=== PATIENT | female | born 1950 | race Caucasian/White ===

== ENCOUNTER 2019-09-07 07:54 | Emergency (ER) | payer MEDICARE, SELFPAY ==
--- NOTE | ~2019-09-07 | XR_ITS ---
XR chest 2V 09/07/2019 08:50 Indication: Dyspnea Procedure: 2 view chest Comparison: No prior studies for comparison. Findings: Status post median sternotomy for CABG. Cardiomegaly. There are coarse bilateral interstiti al infiltrates throughout both lungs. Possible small effusions. No pneumothorax. Impression: 1: Coarse diffuse bilateral interstitial infiltrates which may represent edema, chronic interstitial lung disease or atypical pneumonia. Reviewed, dictated and finalized at location A. Impression: 1: Coarse diffuse bilateral interstitial infiltrates which may represent edema, chronic interstitial lung disease or atypical pneumonia.
[2019-09-07 07:54] VITALS: BP 150/83; PULSE 92; RESP 18; TEMP 36.2; O2SAT 100
--- NOTE | 2019-09-07 08:04 | ED.SOB ---
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) Context: occurred during exertion Timing: intermittent and improved Severity: moderate Exacerbating factors: exertion Relieving factors: bronchodilators Known history of: congestive heart failure Treatment prior to arrival: bronchodilator Related Data Home oxygen amount: none Home Medications Medication Instructions Recorded Confirmed Eliquis 5 mg PO BID 09/07/19 09/07/19 albuterol sulfate 2 puff INHALATION PRN PRN 09/07/19 09/07/19 atorvastatin 80 mg PO DAILY 09/07/19 09/07/19 clonidine HCl 0.2 mg PO DAILY 09/07/19 09/07/19 duloxetine 30 mg PO DAILY 09/07/19 09/07/19 furosemide 40 mg PO DAILY 09/07/19 09/07/19 lisinopril 40 mg PO DAILY 09/07/19 09/07/19 naproxen 500 mg PO TID 09/07/19 09/07/19 omeprazole 80 mg PO DAILY 09/07/19 09/07/19 potassium chloride 10 meq PO DAILY 09/07/19 09/07/19 pramipexole 1 mg PO TID 09/07/19 09/07/19 Allergies Allergy/AdvReac Type Severity Reaction Status Date / Time prochlorperazine AdvReac Unknown Verified 09/07/19 09:27 [From Compazine] Review of Systems Constitutional: Constitutional: Reports no additional constitutional complaints, Denies chills and Denies fever(s) Eyes: Eyes: Reports no additional eye complaints ENT: Reports system reviewed and no additional complaints, except as documented Cardiovascular: Cardiovascular: Reports no additional cardiovascular complaints and Reports pedal edema Gastrointestinal: Gastrointestinal: Reports no additional gastrointestinal complaints Genitourinary: Genitourinary: Reports no additional female genitourinary complaints Musculoskeletal: Musculoskeletal: Reports no additional musculoskeletal complaints Neurologic: Reports system reviewed and no additional complaints, except as documented Psychiatric: Psychiatric: Reports no additional psychiatric complaints PMFSH Past Medical History Medical History (Updated 09/07/19 @ 11:29 by Faustino Brito MD) Asthma Atrial flutter COPD (chronic obstructive pulmonary disease) CVA (cerebral vascular accident) GERD (gastroesophageal reflux disease) Hypercholesteremia Hypertension Surgical History Surgical History (Updated 09/07/19 @ 11:29 by Faustino Brito MD) H/O section H/O foot surgery Bilateral H/O: hysterectomy History of appendectomy History of cholecystectomy History of knee replacement, total Bilateral Hx of CABG Social History Social History (Updated 09/07/19 @ 11:30 by Faustino Brito MD) Smoking status: Never smoker Alcohol intake: former Substance use: never Exam Const: General: healthy appearing, no acute distress and alert Nutritional Appearance: obese morbidly obese Orientation/consciousness: patient oriented x3 HENMT: Head: normal to inspection Face and sinus: normal facial exam Eyes: Conjunctivae: conjunctivae normal Pupils: Equal, round and reactive pupils present EOM: EOMs intact bilaterally Neck: Neck: normal visual inspection Resp: Effort & Inspection: normal respiratory effort Auscultation: rhonchi lower bilaterally Cardio: Rate: regular rate Rhythm: regular rhythm Heart sounds: Murmur heart sound present continuous holo, II/ and at the base GI: GI Palp: Yes Soft to palpation and No Tenderness to palpation present (GI) Auscultation: normal bowel sounds Back/Spine/Pelvis: Cervical Spine: cervical ROM normal Thoracic/Lumbar Spine: thoraco-lumbar ROM normal Skin: General skin exam: normal color Rashes: no rashes Neuro: General: patient oriented x3, moves all extremities and no focal motor deficits Speech: normal speech Extrem:
[2019-09-07] MEDS: FUROSEMIDE INJ 40 MG/4 ML VIAL 60 MG IV PUSH (08:25)
[2019-09-07 08:27] LABS: Basophils Absolute Auto 0.01 K/mm3 (0.00-0.10); Basophils Percent Auto 0.2 % (0.0-1.0); Eosinophils Absolute Auto 0.12 K/mm3 (0.02-0.50); Eosinophils Percent Auto 2.6 % (1.0-6.0); Hematocrit 34.8 % (35.0-42.0); Hemoglobin 10.6 g/dL (11.7-13.8); Immature Granulocyte Absolute 0.04 K/mm3 (0.00-0.00); Immature Granulocyte Percent A 0.9 % (0.0-0.0); Lymphocytes Absolute Auto 1.53 K/mm3 (1.10-4.50); Lymphocytes Percent Auto 33.6 % (18.0-42.0); Mean Corpuscular HGB Conc 30.5 g/dL (32.0-36.0); Mean Corpuscular Hemoglobin 30.2 pg (27.0-31.0); Mean Corpuscular Volume 99.1 fL (78.0-102.0); Mean Platelet Volume 10.9 fl (9.2-11.8); Monocytes Absolute Auto 0.42 K/mm3 (0.10-0.90); Monocytes Percent Auto 9.2 % (2.0-11.0); Neutrophils Absolute Auto 2.4 K/mm3 (1.7-7.2); Neutrophils Percent Auto 53.5 % (50.0-70.0); Platelet Count Result 186 K/mm3 (150-420); Red Blood Count 3.51 M/mm3 (4.20-5.40); Red Cell Distribution Width 13.9 % (11.6-14.4); White Blood Count 4.6 K/mm3 (4.8-10.8)
[2019-09-07 08:32] VITALS: PULSE 67
[2019-09-07 08:43] LABS: Alanine Aminotransferase 20 U/L (14-59); Albumin Level 3.7 g/dL (3.4-5.0); Alkaline Phosphatase 94 U/L (46-116); Anion Gap 8.6 mmol/L (7-16); Aspartate Amino Transferase 22 U/L (15-37); Bilirubin,Total 0.9 mg/dL (0.00-1.00); Blood Urea Nitrogen 19 mg/dL (7-18); Calcium 9.2 mg/dL (8.5-10.1); Carbon Dioxide 32 mmol/L (21-32); Chloride 110 mmol/L (98-108); Estimated Glomerular Filt Rate > 60; Glucose 100 mg/dL (70-99); Osmolality Calculated 304 mOsm/kg (285-295); Potassium 4.6 mmol/L (3.5-5.1); Sodium 146 mmol/L (136-145); Total Protein 7.1 g/dL (6.4-8.2)
[2019-09-07 08:44] LABS: BNP 344 pg/mL (0-100); Magnesium 2.1 mg/dL (1.8-2.4)
--- NOTE | 2019-09-07 08:46 | PC.NURSE ---
pt return to room from xray.
[2019-09-07 10:31] VITALS: BP 158/84; PULSE 67; RESP 20; O2SAT 97
== END 2019-09-07 10:40 | disposition home or self-care (01) ==
PROVIDERS: Emergency Provider Emergency Medicine
DX: I50.23 Acute on chronic systolic (congestive) heart failure (principal); Z86.73 Personal history of transient ischemic attack (TIA), and cerebral infarction without residual deficits; K21.9 Gastro-esophageal reflux disease without esophagitis; E78.00 Pure hypercholesterolemia, unspecified; I10 Essential (primary) hypertension
CPT/HCPCS: 36415; 71046; 80053; 83735; 83880; 85025; 96374; 99283; 99284; J1940

== ENCOUNTER 2019-09-24 13:01 | Observation (INO) | payer MEDICARE, SELFPAY ==
--- NOTE | ~2019-09-24 | CT_ITS ---
EXAMINATION: CTA chest PE protocol DATE: 09/25/2019 10:27 INDICATION: Shortness of breath. TECHNIQUE: Computed tomography angiography (CTA) of the chest was performed with 100 mL Omnipaque-350 intravenous contrast timed to evaluate the pulmonary arteries. Coronal maximum intensity projection 3D-reconstructions were created by the technologist. Automated exposure control and iterative reconst ruction technique were employed. The dose-length product was 851.92 mGy-cm. COMPARISON: Chest 2 views 09/24/2019 FINDINGS: There is mild atelectasis bilaterally. Calcified left lung nodules and calcified left hilar lymph nodes are consistent with old granulomatous disease. There are a few scattered nodules measuri ng up to 4 mm, likely benign. No pleural effusion. Cardiomegaly is noted. There are changes of patel ry artery bypass grafting. No pericardial effusion. There is no pulmonary embolus. The central pulmon anselmo arteries are enlarged, consistent with pulmonary arterial hypertension. Calcifications in the spl een are consistent with old granulomatous disease. There are changes of cholecystectomy. There is mod erate thoracic spondylosis. IMPRESSION: 1. No pulmonary embolus. Sensitivity is mildly decreased by motion artifact. Reviewed, dictated and finalized at location A.
--- NOTE | ~2019-09-24 | XR_ITS ---
XR chest 2V DATE: 09/24/2019 14:01 INDICATION: Shortness of breath. Dyspnea. Fluid buildup. TECHNIQUE: PA and lateral views COMPARISON: 09/06/2021 view chest FINDINGS: Status post sternotomy. Cardiomegaly. Resolution of pulmonary vascular congestion, pulmonary interstitial and subpleural edema since 020.. No hilar or mediastinal enlargement. No pulmonary infiltrate or consolidation, pleural effusion or pulmonary vascular congestion or pneumothorax. Diffuse osteopenia. Mild levoscoliosis of the thoracic spine and degenerative spurring. Status post cholecystectomy. Resolution of congestive changes since 09/07/2019 IMPRESSION: Reviewed, dictated and finalized at location A. IMPRESSION:
--- NOTE | 2019-09-24 13:18 | ED.SOB ---
HPI - SOB/Dyspnea General Chief Complaint: Shortness of Breath/Dyspnea Stated Complaint: sob chf Time Seen by Provider: 09/24/19 13:22 Source: patient Mode of arrival: ambulatory Limitations: no limitations History of Present Illness HPI Narrative: 69-year-old woman with history of congestive heart failure, coronary artery disease and atrial flutter comes in today complaining of dyspnea that has gotten worse over the last week. Patient states that she has had some intermittent wheezing as well. She states that her legs are swollen, she has worsening shortness of breath particularly when lying supine and with exertion. She has currently taking 20 mg of Lasix t.i.d. She denies chest pain, abdominal pain, cough, fever, syncope, abdominal pain and dysuria. MD elicited complaint: shortness of breath Related Data Home Medications Medication Instructions Recorded Confirmed Eliquis 5 mg PO BID 09/07/19 09/24/19 albuterol sulfate 2 puff INHALATION PRN PRN 09/07/19 09/24/19 atorvastatin 80 mg PO DAILY 09/07/19 09/24/19 clonidine HCl 0.2 mg PO DAILY 09/07/19 09/24/19 duloxetine 30 mg PO DAILY 09/07/19 09/24/19 furosemide 40 mg PO DAILY 09/07/19 09/24/19 lisinopril 40 mg PO DAILY 09/07/19 09/24/19 naproxen 500 mg PO TID 09/07/19 09/24/19 omeprazole 80 mg PO DAILY 09/07/19 09/24/19 potassium chloride 10 meq PO DAILY 09/07/19 09/24/19 pramipexole 1 mg PO TID 09/07/19 09/24/19 Allergies Allergy/AdvReac Type Severity Reaction Status Date / Time prochlorperazine AdvReac Unknown Verified 09/07/19 09:27 [From Compazine] Review of Systems Constitutional: Constitutional: Denies chills, Reports fatigue, Denies fever(s) and Denies weakness Eyes: Eyes: Denies change in vision and Denies photophobia ENT: Denies dysphagia, Denies nasal congestion and Denies sore throat Cardiovascular: Cardiovascular: Denies chest pain, Denies rapid heart rate, Denies radiating jaw, neck or arm pain and Denies slow heart rate Comments: Orthopnea and dyspnea on exertion Respiratory: Respiratory: Reports as per HPI, Denies chest congestion, Denies cough, Reports dyspnea and Denies wheezing Gastrointestinal: Gastrointestinal: Denies abdominal pain and Denies nausea Genitourinary: Genitourinary: Denies nocturia and Denies dysuria Musculoskeletal: Musculoskeletal: Denies arthralgias, Denies joint swelling and Denies muscle cramps Integumentary/Breasts: Skin/Breast: Denies pruritus, Denies erythema and Denies rash Neurologic: Denies vertigo, Denies dizziness, Denies syncope and Denies focal weakness Psychiatric: Psychiatric: Denies anxiety and Denies depression Endocrine: Endocrine: Denies polydipsia and Denies polyuria Hematologic/Lymphatic: Hematologic/Lymphatic: Denies easy bleeding and Denies easy bruising Allergic/Immunologic: Allergic/Immunologic: Denies lip swelling and Denies wheezing PMFSH Past Medical History Medical History Asthma Atrial flutter COPD (chronic obstructive pulmonary disease) CVA (cerebral vascular accident) GERD (gastroesophageal reflux disease) Hypercholesteremia Hypertension Surgical History Surgical History H/O section H/O foot surgery Bilateral H/O: hysterectomy History of appendectomy History of cholecystectomy History of knee replacement, total Bilateral Hx of CABG Social History Social History (Updated 09/07/19 @ 11:30 by Faustino Brito MD) Smoking status: Never smoker Alcohol intake: former Substance use: never Exam Const: General: alert Nutritional Appearance: obese Orientation/consciousness: patient oriented x3 Limitations: no limitations Other: [id number] acute distress. HENMT: Ears: external ears normal Face and sinus: normal facial exam Mouth: Yes lip normal and Yes moist mucous membranes Eyes: Conjunctivae: conjunctivae normal Pupils:
[2019-09-24 13:24] VITALS: PULSE 82; RESP 24; TEMP 36.6; O2SAT 98
--- NOTE | 2019-09-24 13:27 | ECG_ITS ---
Measurements Intervals [place] Rate: 78 P: 67 [place]: 182 QRS: 96 QRSD: 117 T: 44 QT: 404 QTc: 462 Interpretive Statements SINUS RHYTHM RIGHT AXIS DEVIATION DELAYED PRECORDIAL R/S TRANSITION CONSIDER INFERIOR INFARCT, AGE INDETERMINATE ABNORMAL ECG Electronically Signed On 09-24-2019 13:58:20 CDT by Hiren Mccloud D.O.
[2019-09-24 13:51] LABS: Basophils Absolute Auto 0.02 K/mm3 (0.00-0.10); Basophils Percent Auto 0.4 % (0.0-1.0); Eosinophils Absolute Auto 0.16 K/mm3 (0.02-0.50); Eosinophils Percent Auto 3.5 % (1.0-6.0); Hematocrit 31.1 % (35.0-42.0); Hemoglobin 9.4 g/dL (11.7-13.8); Immature Granulocyte Absolute 0.02 K/mm3 (0.00-0.00); Immature Granulocyte Percent A 0.4 % (0.0-0.0); Lymphocytes Absolute Auto 1.81 K/mm3 (1.10-4.50); Lymphocytes Percent Auto 39.9 % (18.0-42.0); Mean Corpuscular HGB Conc 30.2 g/dL (32.0-36.0); Mean Corpuscular Hemoglobin 29.6 pg (27.0-31.0); Mean Corpuscular Volume 97.8 fL (78.0-102.0); Mean Platelet Volume 10.2 fl (9.2-11.8); Monocytes Absolute Auto 0.49 K/mm3 (0.10-0.90); Monocytes Percent Auto 10.8 % (2.0-11.0); Platelet Count Result 191 K/mm3 (150-420); Red Blood Count 3.18 M/mm3 (4.20-5.40); Red Cell Distribution Width 13.9 % (11.6-14.4); White Blood Count 4.5 K/mm3 (4.8-10.8)
[2019-09-24 14:05] LABS: INR 1.1; Partial Thromboplastin Time 25.7 SEC (22.3-31.6); Prothrombin Time 10.9 Seconds (9.64-11.0)
[2019-09-24 14:12] LABS: Alanine Aminotransferase 16 U/L (14-59); Albumin Level 3.2 g/dL (3.4-5.0); Alkaline Phosphatase 83 U/L (46-116); Anion Gap 13.9 mmol/L (7-16); Aspartate Amino Transferase 14 U/L (15-37); Bilirubin,Total 0.5 mg/dL (0.00-1.00); Blood Urea Nitrogen 17 mg/dL (7-18); Calcium 8.8 mg/dL (8.5-10.1); Carbon Dioxide 28 mmol/L (21-32); Chloride 107 mmol/L (98-108); Estimated Glomerular Filt Rate > 60; Glucose 119 mg/dL (70-99); Magnesium 1.8 mg/dL (1.8-2.4); Osmolality Calculated 302 mOsm/kg (285-295); Potassium 3.9 mmol/L (3.5-5.1); Sodium 145 mmol/L (136-145); Total Protein 6.6 g/dL (6.4-8.2); Troponin I 0.02 ng/mL (0.00-0.056)
[2019-09-24 14:16] LABS: BNP 94.7 pg/mL (0-100)
[2019-09-24 14:23] LABS: D Dimer 1.22 mg/L (0.19-0.50)
[2019-09-24] MEDS: FUROSEMIDE INJ 40 MG/4 ML VIAL 80 MG (14:33)
[2019-09-24 14:41] LABS: Add Urine Microscopic? NO; Appearance Urine Clear (Clear); Bilirubin Urine Negative (Negative); Blood Urine Negative (Negative); Color Urine Yellow (Yellow); Glucose Urine UA Negative (Negative); Ketones Urine Negative (Negative); Leukocyte Esterase Ur Negative LEU/UL (Negative); Nitrate Urine Negative (Negative); Protein Urine Negative (Negative); Specific Grav Ur >= 1.030 (1.010-1.020); Urobilinogen Urine 0.2 mg/dL (0.2-1.0); pH Urine 5.5 (5.0-8.0)
[2019-09-24] MEDS: IPRATROPIUM 0.5 MG/ALBUTEROL SULFATE 2.5 MG AMPUL.NEB 3 ML INHALATION (15:51)
[2019-09-24 15:52] VITALS: PULSE 74; RESP 16
--- NOTE | 2019-09-24 15:55 | PC.NURSE ---
PT. RESTING ON STREACHER. APPEARS COMFORTABLE. STATES BREATHING HAS IMPROVED.
[2019-09-24 15:57] VITALS: PULSE 79; RESP 14
[2019-09-24 16:17] VITALS: BP 135/67; PULSE 72; RESP 20; O2SAT 98
[2019-09-24 17:25] VITALS: BMI 46.5
--- NOTE | 2019-09-24 17:33 | ADMGEN ---
This patient, Padmini Monreal, was admitted to 2nd Floor Room 204-2. Patient/family oriented to hospital policies and general routines including ID bracelet, bed and alarms, visiting hours, pain management, procedures, bathroom and other care routines, personal items, smoking policy, room service/diet, and visiting hours. Valuables list has been completed. Information on how to activate the Rapid Response Team has been discussed. Patient/Family are encouraged to report perceived risks to care and to ask questions if they do not understand what they are told or what they should do.
[2019-09-24] MEDS: NAPROXEN 250 MG TABLET 500 MG PO (17:50)
[2019-09-24] MEDS: PRAMIPEXOLE 1 MG TABLET PO (17:51)
[2019-09-24] MEDS: APIXABAN 2.5 MG TABLET 5 MG PO (17:51)
--- NOTE | 2019-09-24 19:30 | PC.NURSE ---
Patient watching tv. Respirations even and unlabored. No distress noted. Call light in reach.
--- NOTE | 2019-09-24 20:15 | PC.NURSE ---
Patient appears to be sleeping by the rise and fall of her chest. Respirations even and unlabored. No distress noted. Call light in reach.
--- NOTE | 2019-09-24 21:05 | PC.NURSE ---
Patient appears to be sleeping by the rise and fall of her chest. Respirations even and unlabored. No distress noted. Call light in reach.
[2019-09-24 22:00] VITALS: BP 133/65; PULSE 80; RESP 20; TEMP 36.2; O2SAT 95
--- NOTE | 2019-09-24 22:00 | PC.NURSE ---
Patient awakened easily for VS. Respirations even and unlabored. Rothman catheter patent and draining clear yellow urine. Denies pain/complaints/needs @ this time. No distress noted. Call light in reach.
[2019-09-24 22:16] LABS: Troponin I < 0.02 ng/mL (0.00-0.056)
--- NOTE | 2019-09-24 22:30 | PC.NURSE ---
Nurse entered room to replace glove box and noticed patient having dyspnea. Asked patient how long she'd been SOB and she said for about 10-15 minutes. Patient given PRN Albuterol inhaler. SpO2 remains @ 95% on room air and respirations are 20. Patient denies pain/other complaints/needs @ this time. Call light in reach.
--- NOTE | 2019-09-24 23:00 | PC.NURSE ---
Patient appears to be sleeping by the rise and fall of her chest. Respirations are now even and unlabored with no dyspnea noted. Call light in reach.
--- NOTE | 2019-09-25 | PC.NURSE ---
Patient appears to be sleeping by the rise and fall of her chest. Respirations even and unlabored. No distress noted. Call light in reach.
[2019-09-25] MEDS: FUROSEMIDE INJ 40 MG/4 ML VIAL IV PUSH (00:36)
--- NOTE | 2019-09-25 00:40 | PC.NURSE ---
Patient given Lasix 40mg per new order. Saline lock flushes with ease. Respirations even and unlabored and patient now denies SOB. Denies pain/complaints/needs @ this time. No distress noted. Call light in reach.
--- NOTE | 2019-09-25 01:30 | PC.NURSE ---
Patient appears to be sleeping by the rise and fall of her chest. Respirations even and unlabored. No distress noted. Call light in reach.
--- NOTE | 2019-09-25 02:15 | PC.NURSE ---
Patient appears to be sleeping by the rise and fall of her chest. Respirations even and unlabored. No distress noted. Call light in reach.
--- NOTE | 2019-09-25 03:10 | PC.NURSE ---
Patient appears to be sleeping by the rise and fall of her chest. Respirations even and unlabored. No distress noted. Call light in reach.
--- NOTE | 2019-09-25 04:05 | PC.NURSE ---
Patient appears to be sleeping by the rise and fall of her chest. Respirations even and unlabored. No distress noted. Call light in reach.
--- NOTE | 2019-09-25 05:14 | PC.NURSE ---
Patient appears to be sleeping by the rise and fall of her chest. Respirations even and unlabored. No distress noted. Call light in reach.
[2019-09-25 05:26] LABS: Basophils Absolute Auto 0.02 K/mm3 (0.00-0.10); Basophils Percent Auto 0.4 % (0.0-1.0); Eosinophils Absolute Auto 0.13 K/mm3 (0.02-0.50); Eosinophils Percent Auto 2.8 % (1.0-6.0); Hematocrit 33.6 % (35.0-42.0); Hemoglobin 10.3 g/dL (11.7-13.8); Immature Granulocyte Absolute 0.01 K/mm3 (0.00-0.00); Immature Granulocyte Percent A 0.2 % (0.0-0.0); Lymphocytes Percent Auto 41.4 % (18.0-42.0); Mean Corpuscular HGB Conc 30.7 g/dL (32.0-36.0); Mean Corpuscular Hemoglobin 29.9 pg (27.0-31.0); Mean Corpuscular Volume 97.4 fL (78.0-102.0); Mean Platelet Volume 10.2 fl (9.2-11.8); Monocytes Absolute Auto 0.51 K/mm3 (0.10-0.90); Monocytes Percent Auto 11.1 % (2.0-11.0); Neutrophils Percent Auto 44.1 % (50.0-70.0); Platelet Count Result 200 K/mm3 (150-420); Red Blood Count 3.45 M/mm3 (4.20-5.40); Red Cell Distribution Width 14.1 % (11.6-14.4); White Blood Count 4.6 K/mm3 (4.8-10.8)
--- NOTE | 2019-09-25 05:30 | PC.NURSE ---
Patient's denise emptied of clear yellow urine. Edema in BLE's has decreased but are pitting @ 3+. No dyspnea noted and patient denies SOB. Denies pain/complaint/needs @ this time. No distress noted. Call light in reach.
[2019-09-25 05:45] LABS: BNP 92.9 pg/mL (0-100)
[2019-09-25 05:51] LABS: Alanine Aminotransferase 15 U/L (14-59); Albumin Level 3.5 g/dL (3.4-5.0); Alkaline Phosphatase 84 U/L (46-116); Anion Gap 11.6 mmol/L (7-16); Aspartate Amino Transferase 16 U/L (15-37); Bilirubin,Total 0.7 mg/dL (0.00-1.00); Blood Urea Nitrogen 20 mg/dL (7-18); Calcium 8.4 mg/dL (8.5-10.1); Carbon Dioxide 33 mmol/L (21-32); Chloride 104 mmol/L (98-108); Estimated CRCL calculation 72 ml/min; Estimated Glomerular Filt Rate > 60; Glucose 96 mg/dL (70-99); Osmolality Calculated 302 mOsm/kg (285-295); Potassium 3.6 mmol/L (3.5-5.1); Sodium 145 mmol/L (136-145); Total Protein 6.9 g/dL (6.4-8.2)
[2019-09-25 05:57] LABS: Troponin I < 0.02 ng/mL (0.00-0.056)
[2019-09-25 06:00] VITALS: BP 144/60; PULSE 74; RESP 20; TEMP 36.6; O2SAT 96
--- NOTE | 2019-09-25 06:00 | PC.NURSE ---
Patient watching tv. Respirations even and unlabored. Denies SOB/pain/complaints/needs @ this time. Rothman catheter patent and draining clear yellow urine. Patient requested/given cup of coffee. No distress noted. Call light in reach.
[2019-09-25 07:35] VITALS: BP 142/75; PULSE 72; RESP 18; TEMP 36.1; O2SAT 99
--- NOTE | 2019-09-25 07:35 | PC.NURSE ---
Patient in bed resting, alert, pleasant and cooperative. Denies shortness of breath at this time.
--- NOTE | 2019-09-25 08:40 | PC.NURSE ---
Patient sitting up in bed, denies dyspnea. IV access locked. No complaints at this time
[2019-09-25] MEDS: PRAMIPEXOLE 0.25 MG TABLET 1 MG PO ×2 (09:32→13:32)
[2019-09-25] MEDS: ATORVASTATIN 10 MG TABLET 80 MG PO (09:32)
[2019-09-25] MEDS: CLONIDINE HCL 0.2 MG TABLET PO (09:33)
[2019-09-25] MEDS: NAPROXEN 250 MG TABLET 500 MG PO ×2 (09:33→13:32)
[2019-09-25] MEDS: APIXABAN 2.5 MG TABLET 5 MG PO (09:33)
[2019-09-25] MEDS: lisinopriL 20 MG TABLET 40 MG PO (09:34)
[2019-09-25] MEDS: DULOXETINE HCL 30 MG CAPSULE.DR PO (09:34)
[2019-09-25] MEDS: PANTOPRAZOLE 40 MG TABLET 80 MG PO (09:34)
[2019-09-25] MEDS: POTASSIUM CHLORIDE 10 MEQ TABLET PO (09:34)
--- NOTE | 2019-09-25 09:38 | PC.NURSE ---
Patient reports she is breathing much better today. Denies dyspnea or shortness of breath
--- NOTE | 2019-09-25 09:51 | PC.NURSE ---
Patient off floor to radiology for CTA.
--- NOTE | 2019-09-25 10:15 | PC.NURSE ---
Patient returned to floor from radiology
--- NOTE | 2019-09-25 10:45 | PC.NURSE ---
Patient up in bed, denies difficulty breathing
--- NOTE | 2019-09-25 11:02 | ECHO_ITS ---
Patient Info Name: Padmini Monreal Age: 69 years : 1950 Gender: Female Ht: 63 in Wt: 263 lbs BSA: 2.37 m2 HR: 68 bpm BP: 133 / 66 mmHg Heart Rhythm: Sinus Rhythm Technical Quality: Fair Exam Date: 09/25/2019 11:49 AM Exam Location: [facility] Patient Status: Inpatient Admit Date: 09/24/2019 Staff Ordering Physician: Javier Hernandez Education Teacher: Serene Mosher RDCS Attending Provider: Jamal Rae MD Referring Physician: David RAND; Exam Type: CA echo doppler color flow Study Info Indications J81.1 - Chronic pulmonary edema Complete two-dimensional, color flow and Doppler transthoracic echocardiogram is performed. Strain analysis performed. History/Risk Factors Hypertension: Yes Dyslipidemia: Yes Congenital Heart Disease (CHD): No Peripheral Arterial Disease (PAD): No Myocardial Infarction (TN): No Chronic Lung Disease: No Obesity: Yes Renal Disease: No Coronary Artery Disease (CAD) Yes Congestive Heart Failure (CHF): Hx CHF Cardiomyopathy/LV Systolic Dysfunction: No Diabetes Mellitus: No COPD: On Meds Tobacco Use: Never Cerebrovascular Disease: No Family History: Coronary Artery Disease Deep Vein Thrombosis (DVT): None Dialysis: None Frailty Scale (CSHA): 4: Vulnerable Cardiac Arrest: No Summary 1. Left ventricular chamber dimension is normal. 2. Left ventricular systolic function is normal, estimated at 65-70%. 3. There is moderately increased left ventricular wall thickness. 4. The left ventricular diastolic function is abnormal. 5. E/e' 30 is significantly elevated. 6. Global longitudinal strain is slightly abnormal at -16.8%. 7. Linear artifact in right ventricle suggestive of catheter(s), pacemaker lead(s), or ICD lead(s). 8. Left atrial chamber dimension is moderately enlarged. 9. Linear artifact in the right atrium suggestive of catheter(s), pacemaker lead(s), or ICD lead(s). 10. The aortic valve is not well visualized. 11. There is mild aortic valve sclerosis. 12. There is moderate aortic valve stenosis based on a peak velocity of 356 cm/s, mean gradient of 22 mmHg, and aortic valve area of 1.2 cm2. 13. Mitral valve is not well visualized. 14. Probably a bioprosthetic mitral valve. 15. The mitral valve annulus is severely calcified. 16. Mild pulmonary hypertension, estimated pulmonary arterial systolic pressure is 45 mmHg. Left Ventricle E/e' 30 is significantly elevated. Global longitudinal strain is slightly abnormal at -16.8%. Left ventricular chamber dimension is normal. Left ventricular systolic function is normal, estimated at 65-70%. There is moderately increased left ventricular wall thickness. The left ventricular diastolic function is abnormal. Right Ventricle Linear artifact in right ventricle suggestive of catheter(s), pacemaker lead(s), or ICD lead(s). Right ventricular chamber dimension is normal. Right ventricular systolic function is normal. Left Atria Left atrial chamber dimension is moderately enlarged. Right Atria Linear artifact in the right atrium suggestive of catheter(s), pacemaker lead(s), or ICD lead(s). Right atrial chamber dimension is normal. Aortic Valve There is moderate aortic valve stenosis based on a peak velocity of 356 cm/s, mean gradient of 22 mmHg, and aortic valve area of 1.2 cm2. The aortic valve is not well visualized. There is mild aortic valve sclerosis. There is no aortic valve regu
--- NOTE | 2019-09-25 11:40 | PC.NURSE ---
Patient denies difficulty breathing or shortness of breath. Respirations even, non-labored. Patient working with occupational therapy
--- NOTE | 2019-09-25 12:43 | PM.SD ---
Same Day Admit/Disch: HPI History of Present Illness Chief complaint: sob chf <Javier Hernandez, CHILD CARE SITTER-C - Last Filed: 09/25/19 15:46> Narrative: Padmini Monreal is a 69 year old female presented to the ED yesterday with complaints shortness breath and dyspnea. patient has a past medical history asthma, AFib, COPD, CVA, GERD, hypercholesteremia,hypertension. according to patient she has been experiencing weight gain approximately 1 month now. She recently came to the ED on 09/07/2019 for uncompensated congestive heart failure. She was given Lasix 60 mg and discharge. patient was unable to stay as an inpatient because she recently custody her two. teenager grandkids. patient also noted that extremities has lower extremities swollen within the last couple weeks. Patient has recently relocated to [place] has no primary care physician at this time. she also noted that she takes Eliquis for AFib and has not used her Eliquis for approximately 2-3 weeks. Her shortness of breath worsened and she developed wheezing after increasing the her Lasix to 20 mg t.i.d. this is what prompted her to come to the ED. While patient was in the ED she was given Lasix 80 mg, chest x-ray indicated pulmonary edema, troponin is negative, BNP is 344 currently 92.9. Her D-dimer was slightly elevated, CTA indicates no PE. today her I&O is currently -2150. patient is currently having financial difficulty and case coordination has been consulted. patient has been provided a list food [facility]ard, we will attempt to get her an appointment with the primary care physician, I will refill her prescription for Eliquis. she will also discharge home with physical therapy/occupational therapy and home health. according to patient she has recently gained custody of her 2 grandsons to prevent him from going into the foster care system. she noted that her her grand sons were homeless for short period of time and use her save income to her home for her at her grand son. she also noted that she only has $5 to her name until next month. she did note that her condition has improved since admission. Patient able to tolerate all meals and slept well . Patient denies SOB, CP, palpitation, extremity numbness, lightheadness, dizziness, constipation, diarrhea, chills or fever. Patient agree that they are ready for discharge and discharge plan. patient has an appointment tomorrow with the nurse practitioner at the community [facility]. Called clinic in left message to update them patient's on patient condition. I also informed staff that patient was ordered a new echo while inpatient and notified them the echo from [facility] has been requested for comparison. <LAURIE Alonzo - Last Filed: 09/25/19 15:46> [facility] Past Medical History Medical History: Medical History Asthma Atrial flutter COPD (chronic obstructive pulmonary disease) CVA (cerebral vascular accident) GERD (gastroesophageal reflux disease) Hypercholesteremia Hypertension <LAURIE Alonzo - Last Filed: 09/25/19 15:46> Surgical History Surgical History: Surgical History H/O section H/O foot surgery Bilateral H/O: hysterectomy History of appendectomy History of cholecystectomy History of knee replacement, total Bilateral Hx of CABG <LAURIE Alonzo - Last Filed: 09/25/19 15:46> Family History Family History: Family History (Updated 09/24/19 @ 17:36 by Antonia Mendiola RN) Father CVD (cardiovascular disease) Mother CVD (cardiovascular disease) Ovarian cancer Sibling CVD (cardiovascular disease) Pancreatic cancer <LAURIE Alonzo - Last Filed: 09/25/19 15:46> Social History Social History: Social History (Updated 09/07/19 @ 11:30 by Faustino Brito MD) Smoking status: Never smoker Alcohol intake: current Drinks per we
[2019-09-25 14:00] VITALS: BP 133/68; PULSE 84; RESP 18; TEMP 36.1; O2SAT 98
--- NOTE | 2019-09-25 14:39 | PM.EVENT ---
Event Note Event Note Event Note: I have reviewed the chart, discussed with the N.P. hospitalist and discussed a plan which I agree with. Padmini's admitting symptoms suggest progressive CHF symptoms since being seen on 09/06 with orthopnea and leg edema. Recent CXR did not show pulmonary edema and her BNP was 92, down from 344. She feels much better since diuresis and decrease in leg edema. Her RR has returned no normal. Lungs sounds are with scattered fine rales in bases. She has a 2/6 CURTIS loudest L.S.B. (she has been told she has a murmur). Wt CTA negative for P.E. application services manager to work with pt. regarding obtaining her Eliquis, food and money to get her to 10/03. Pt. is also to check in with PCP within a week regarding status. Await records for [facility] re: echocardiogram last fall. Await results of echo her at [facility]. Advised to avoid salt.
== END 2019-09-25 16:20 | disposition home health service (06) ==
LOC: CHSED 15:54 → CHS2ND 16:02
PROVIDERS: Admitting Provider Emergency Medicine; Emergency Provider Emergency Medicine; Visit Provider Emergency Medicine
DX: I11.0 Hypertensive heart disease with heart failure (principal); I50.9 Heart failure, unspecified; I48.92 Unspecified atrial flutter; I25.10 Atherosclerotic heart disease of native coronary artery without angina pectoris; J45.909 Unspecified asthma, uncomplicated; J44.9 Chronic obstructive pulmonary disease, unspecified; K21.9 Gastro-esophageal reflux disease without esophagitis; E78.00 Pure hypercholesterolemia, unspecified; Z96.653 Presence of artificial knee joint, bilateral; Z79.01 Long term (current) use of anticoagulants; Z86.73 Personal history of transient ischemic attack (TIA), and cerebral infarction without residual deficits
CPT/HCPCS: 36415; 71046; 71275; 80053; 81003; 83735; 83880; 84484; 85025; 85380; 85610; 85730; 93005; 93306; 94640; 96374; 96376; 97161; 97165; 99285; A9270; G0378; J1940; Q9965

== ENCOUNTER 2019-10-07 00:30 | Observation (INO) | payer MEDICARE, SELFPAY ==
[2019-10-07] VITALS (17 sets, daily range): BP systolic 116–145; BP diastolic 53–81; PULSE 76–95; RESP 16–28; TEMP 36–36.8; O2SAT 96–100
--- NOTE | ~2019-10-07 | US_ITS ---
EXAMINATION: US venous doppler [facility] DATE: 10/07/2019 11:07 INDICATION: Lower limb pain, swelling and erythema. TECHNIQUE: Grayscale ultrasound images without and with compression and Doppler ultrasound images of the bilateral lower extremity veins were obtained. COMPARISON: None. FINDINGS: The visualized portions of right common femoral vein, profunda (deep) femoral vein, femoral vein, pop liteal vein, posterior tibial veins, peroneal veins, gastrocnemius vein and greater saphenous vein ou tflow are patent. The visualized portions of left common femoral vein, profunda femoral vein, femoral vein, popliteal v ein, posterior tibial veins, peroneal veins, gastrocnemius vein and greater saphenous vein outflow ar e patent. IMPRESSION: 1. No deep venous thrombosis in either lower limb. Reviewed, dictated and finalized at location A.
--- NOTE | ~2019-10-07 | XR_ITS ---
EXAMINATION: XR chest 1V portable DATE: 10/07/2019 01:59 INDICATION: Dyspnea TECHNIQUE: frontal view of the chest was obtained. COMPARISON: Chest radiograph dated 09/24/[address] dated 09/25/2019 FINDINGS: The lungs remain clear with no focal airspace opacities, pulmonary edema, pleural effusion or pneumot horax. Cardiomegaly. Median sternotomy wires and mediastinal surgical clips are seen, likely from rehana or coronary artery bypass grafting. Calcified left hilar lymph nodes consistent with old granulomatou s disease. IMPRESSION: 1. Cardiomegaly. No acute cardiopulmonary disease. Reviewed, dictated and finalized at location A.
--- NOTE | 2019-10-07 00:57 | ECG_ITS ---
Measurements Intervals [place] Rate: 76 P: 54 HI: 190 QRS: 97 QRSD: 102 T: 39 QT: 406 QTc: 458 Interpretive Statements SINUS RHYTHM RIGHT AXIS DEVIATION INCOMPLETE RIGHT BUNDLE BRANCH BLOCK DELAYED PRECORDIAL R/S TRANSITION CONSIDER INFERIOR INFARCT, AGE INDETERMINATE BASELINE ARTIFACT- V1, V3, V6 ABNORMAL ECG Electronically Signed On 10-07-2019 8:08:02 CDT by Hiren Mccloud D.O.
--- NOTE | 2019-10-07 01:20 | ED.SOB ---
HPI - SOB/Dyspnea General Chief Complaint: Shortness of Breath/Dyspnea Stated Complaint: SOB Source: patient Mode of arrival: ambulatory Limitations: no limitations History of Present Illness HPI Narrative: this is a 69-year-old female presents with increased shortness of breath with lower extremity edema this been ongoing and has recently increased over the last couple of days, currently there is no chest pain, no fever or chills no cough or wheezing. Patient denies any nausea or vomiting no abdominal pain no diarrhea constipation. Patient has a history of COPD/asthma with a history of CVA with right-sided weakness. History of atrial fibrillation, hypertension and hyperlipidemia. Patient was recently admitted in discharge to our facility with CHF exacerbation and had an echocardiogram performed on 09/24 that showed diastolic dysfunction with a preserved ejection fraction of 65 to 70%. The patient had developed this increasing shortness of breath and called her primary care physician which advised her to come directly to the emergency department for further evaluation and treatment. Patient currently denies chest pain but does have a history of CAD with with a single-vessel bypass in 1999. MD elicited complaint: shortness of breath Pertinent past history: COPD and congestive heart failure Onset (ago): day(s) Context: anxiety Timing: constant Severity: moderate Exacerbating factors: exertion and movement Relieving factors: rest and upright position Known history of: COPD, asthma and congestive heart failure Associated symptoms: orthopnea Treatment prior to arrival: none Related Data Home oxygen amount: none Home Medications Medication Instructions Recorded Confirmed albuterol sulfate 2 puff INHALATION PRN PRN 09/07/19 10/07/19 atorvastatin 80 mg PO DAILY 09/07/19 10/07/19 clonidine HCl 0.2 mg PO DAILY 09/07/19 10/07/19 furosemide 80 mg PO DAILY 09/07/19 10/07/19 naproxen 500 mg PO TID 09/07/19 10/07/19 omeprazole 40 mg PO BID 09/07/19 10/07/19 potassium chloride 10 meq PO DAILY 09/07/19 10/07/19 pramipexole 1 mg PO TID 09/07/19 10/07/19 Allergies Allergy/AdvReac Type Severity Reaction Status Date / Time methylprednisolone AdvReac Agitated Verified 09/24/19 20:21 [From Solu-Medrol] prochlorperazine AdvReac Unknown Verified 09/07/19 09:27 [From Compazine] Review of Systems Review of Systems: All systems reviewed & are unremarkable except as noted in HPI and below PMFSH Past Medical History Medical History Aortic valve sclerosis Asthma Atrial flutter COPD (chronic obstructive pulmonary disease) CVA (cerebral vascular accident) GERD (gastroesophageal reflux disease) Hypercholesteremia Hypertension Morbid obesity with BMI of 45.0-49.9, adult Surgical History Surgical History H/O section H/O foot surgery Bilateral H/O: hysterectomy History of appendectomy History of cholecystectomy History of knee replacement, total Bilateral Hx of CABG Social History Social History Smoking status: Never smoker Alcohol intake: current Drinks per week: 1 Substance use: never Substance use type: does not use Gender identity (if verbalized by the patient): Female Spiritual care concerns: No Exam Const: General: no acute distress and alert Nutritional Appearance: well nourished and obese Orientation/consciousness: patient oriented x3 Limitations: physical limitations HENMT: Head: normal to inspection Eyes: Conjunctivae: conjunctivae normal Pupils: Equal, round and reactive pupils present Neck: Neck: normal visual inspection and no lymphadenopathy Chest: Chest palpation & inspection: normal inspection of the chest and abnormal inspection of the chest Resp: Effort & Inspection: normal respiratory effort and tachypneic
[2019-10-07] MEDS: FUROSEMIDE INJ 40 MG/4 ML VIAL IV PUSH ×2 (01:27→08:57)
[2019-10-07] MEDS: ALBUTEROL SULFATE (*SP) INHALER 2 PUFF INHALATION (01:28)
[2019-10-07 01:51] LABS: Basophils Absolute Auto 0.02 K/mm3 (0.00-0.10); Basophils Percent Auto 0.3 % (0.0-1.0); Eosinophils Absolute Auto 0.18 K/mm3 (0.02-0.50); Eosinophils Percent Auto 2.9 % (1.0-6.0); Hematocrit 32.7 % (35.0-42.0); Hemoglobin 10.1 g/dL (11.7-13.8); Immature Granulocyte Absolute 0.14 K/mm3 (0.00-0.00); Immature Granulocyte Percent A 2.2 % (0.0-0.0); Lymphocytes Absolute Auto 2.21 K/mm3 (1.10-4.50); Lymphocytes Percent Auto 35.4 % (18.0-42.0); Mean Corpuscular HGB Conc 30.9 g/dL (32.0-36.0); Mean Corpuscular Hemoglobin 29.9 pg (27.0-31.0); Mean Corpuscular Volume 96.7 fL (78.0-102.0); Monocytes Absolute Auto 0.77 K/mm3 (0.10-0.90); Monocytes Percent Auto 12.3 % (2.0-11.0); Neutrophils Absolute Auto 2.9 K/mm3 (1.7-7.2); Neutrophils Percent Auto 46.9 % (50.0-70.0); Platelet Count Result 178 K/mm3 (150-420); Red Blood Count 3.38 M/mm3 (4.20-5.40); Red Cell Distribution Width 14.1 % (11.6-14.4); White Blood Count 6.2 K/mm3 (4.8-10.8)
[2019-10-07 01:54] LABS: Base Excess ABG 0.9 mmol/L (0-2); HCO3 ABG 26.6 mmol/L (23-29); Oxygen Content ABG 14.9 %vol (16.0-22.0); Oxygen Saturation ABG 98.2 % (95-97); Oxyhemoglobin 97.8 % (94-100); PCO2 ABG 47.5 mmHg (35-45); PO2 ABG 117.5 mmHg (75-85); Total Hemoglobin 10.7 g/dL; pH ABG 7.37 (7.35-7.45)
[2019-10-07 01:55] LABS: Device ROOM AIR; Modified Allen's Test Pass; Site Drawn RIGHT RADIAL
[2019-10-07 02:00] LABS: Add Urine Microscopic? YES; Appearance Urine Clear (Clear); Bilirubin Urine Negative (Negative); Blood Urine Negative (Negative); Color Urine Yellow (Yellow); Glucose Urine UA Negative (Negative); Ketones Urine Negative (Negative); Leukocyte Esterase Ur Negative LEU/UL (Negative); Nitrate Urine Positive (Negative); Protein Urine Negative (Negative); Specific Grav Ur 1.025 (1.010-1.020); Urobilinogen Urine 0.2 mg/dL (0.2-1.0); pH Urine 5.5 (5.0-8.0)
[2019-10-07 02:00] LABS: INR 1.1; Partial Thromboplastin Time 27.6 SEC (22.3-31.6); Prothrombin Time 11.4 Seconds (9.64-11.0)
[2019-10-07 02:01] LABS: BNP 136 pg/mL (0-100)
[2019-10-07 02:02] LABS: Alanine Aminotransferase 15 U/L (14-59); Albumin Level 3.5 g/dL (3.4-5.0); Alkaline Phosphatase 85 U/L (46-116); Aspartate Amino Transferase 16 U/L (15-37); Bilirubin,Total 0.5 mg/dL (0.00-1.00); Blood Urea Nitrogen 18 mg/dL (7-18); Calcium 8.7 mg/dL (8.5-10.1); Carbon Dioxide 29 mmol/L (21-32); Chloride 107 mmol/L (98-108); Estimated CRCL calculation 86 ml/min; Estimated Glomerular Filt Rate > 60; Glucose 103 mg/dL (70-99); Osmolality Calculated 299 mOsm/kg (285-295); Sodium 144 mmol/L (136-145); Total Protein 7.3 g/dL (6.4-8.2)
[2019-10-07 02:03] LABS: D Dimer 0.73 mg/L (0.19-0.50)
[2019-10-07 02:06] LABS: Magnesium 1.9 mg/dL (1.8-2.4)
[2019-10-07 02:07] LABS: Troponin I < 0.02 ng/mL (0.00-0.056)
[2019-10-07 02:10] LABS: Bacteria Urine 4+ /hpf; RBC Urine 0-2 /hpf (0-2); Squamous Epithelial Cell Urine None seen /hpf (Few); WBC Urine 0-3 /hpf (0-3)
--- NOTE | 2019-10-07 02:12 | PC.NURSE ---
Pt. resting, tachypnea noted at rest but no distress. VSS, Spo2 100% on 2 L NC. ERP reviewed labs and spoke to pt., will be made 23 hr. obs. Call placed to floor.
--- NOTE | 2019-10-07 03:15 | PC.NURSE ---
Patient experiencing great amount and lower back pain. PRN tylenol and lorazapam given. Patient upset and asking for stronger medication. Doctor notified and new order received for 50 mgs of toradol every 6 hours PRN
[2019-10-07] MEDS: ACETAMINOPHEN 325 MG TABLET 650 MG PO (03:17)
[2019-10-07] MEDS: LORAZEPAM 1 MG TABLET PO (03:20)
--- NOTE | 2019-10-07 04:48 | PC.NURSE ---
[facility]4 [employer] called with recommendations regarding toredol.
--- NOTE | 2019-10-07 04:50 | PC.NURSE ---
[id number] Dr Dennis called regarding [facility] pharmacy's recommendation on dosing and route for toredol. New orders received and noted.
--- NOTE | 2019-10-07 05:20 | PC.NURSE ---
Patient resting. Pain 0 on FLACC. Call light in reach.
[2019-10-07 05:49] LABS: Troponin I 0.02 ng/mL (0.00-0.056)
[2019-10-07] MEDS: TRAMADOL HCL 50 MG TABLET PO (06:06)
--- NOTE | 2019-10-07 06:20 | PC.NURSE ---
Patient experiencing lower back pain. rated 8 on 1 to 10 scale. Continues on O2 at 2 liters. O2 sats 98%
--- NOTE | 2019-10-07 07:21 | PC.NURSE ---
[address] Dennis to clarify EKG orders; Orders clarified for an EKG to be done at 0800 on 10/07/19.
--- NOTE | 2019-10-07 08:00 | ECG_ITS ---
Measurements Intervals [place] Rate: 85 P: 52 SD: 188 QRS: 83 QRSD: 109 T: 37 QT: 400 QTc: 477 Interpretive Statements SINUS RHYTHM DELAYED PRECORDIAL R/S TRANSITION MINIMAL Q WAVES- INFERIOR LEADS BASELINE ARTIFACT- II, III, AVL BORDERLINE ECG Electronically Signed On 10-07-2019 8:09:00 CDT by Hiren Mccloud D.O.
--- NOTE | 2019-10-07 08:15 | PC.NURSE ---
Alert and awake, feeding self, denise patent and draining, call light in reach
--- NOTE | 2019-10-07 08:30 | PC.NURSE ---
Able to feed self, no n/v, lab at the bedside for draw
[2019-10-07] MEDS: PRAMIPEXOLE 0.25 MG TABLET 1 MG PO ×3 (08:57→17:10)
[2019-10-07] MEDS: ATORVASTATIN 40 MG TABLET 80 MG PO (08:58)
[2019-10-07] MEDS: DULOXETINE HCL 30 MG CAPSULE.DR 60 MG PO (08:58)
[2019-10-07] MEDS: POTASSIUM CHLORIDE 10 MEQ TABLET PO (08:58)
[2019-10-07] MEDS: CLONIDINE HCL 0.2 MG TABLET PO (08:58)
[2019-10-07] MEDS: APIXABAN 2.5 MG TABLET 5 MG PO ×2 (08:59→17:10)
[2019-10-07] MEDS: PANTOPRAZOLE 40 MG TABLET PO ×2 (08:59→17:10)
[2019-10-07 09:07] LABS: Basophils Absolute Auto 0.02 K/mm3 (0.00-0.10); Basophils Percent Auto 0.4 % (0.0-1.0); Eosinophils Absolute Auto 0.17 K/mm3 (0.02-0.50); Eosinophils Percent Auto 3.4 % (1.0-6.0); Hematocrit 31.2 % (35.0-42.0); Hemoglobin 9.4 g/dL (11.7-13.8); Immature Granulocyte Absolute 0.03 K/mm3 (0.00-0.00); Immature Granulocyte Percent A 0.6 % (0.0-0.0); Lymphocytes Absolute Auto 1.79 K/mm3 (1.10-4.50); Lymphocytes Percent Auto 35.8 % (18.0-42.0); Mean Corpuscular HGB Conc 30.1 g/dL (32.0-36.0); Mean Corpuscular Hemoglobin 29.3 pg (27.0-31.0); Mean Corpuscular Volume 97.2 fL (78.0-102.0); Mean Platelet Volume 10.9 fl (9.2-11.8); Monocytes Absolute Auto 0.52 K/mm3 (0.10-0.90); Monocytes Percent Auto 10.4 % (2.0-11.0); Neutrophils Absolute Auto 2.5 K/mm3 (1.7-7.2); Neutrophils Percent Auto 49.4 % (50.0-70.0); Platelet Count Result 159 K/mm3 (150-420); Red Blood Count 3.21 M/mm3 (4.20-5.40); Red Cell Distribution Width 14.2 % (11.6-14.4)
[2019-10-07 09:28] LABS: BNP 146 pg/mL (0-100)
[2019-10-07 09:29] LABS: Alanine Aminotransferase 13 U/L (14-59); Albumin Level 3.1 g/dL (3.4-5.0); Alkaline Phosphatase 82 U/L (46-116); Anion Gap 11.7 mmol/L (7-16); Aspartate Amino Transferase 16 U/L (15-37); Bilirubin,Total 0.5 mg/dL (0.00-1.00); Blood Urea Nitrogen 16 mg/dL (7-18); Calcium 8.4 mg/dL (8.5-10.1); Carbon Dioxide 29 mmol/L (21-32); Chloride 106 mmol/L (98-108); Estimated CRCL calculation 102 ml/min; Estimated Glomerular Filt Rate > 60; Glucose 163 mg/dL (70-99); Osmolality Calculated 301 mOsm/kg (285-295); Potassium 3.7 mmol/L (3.5-5.1); Sodium 143 mmol/L (136-145); Total Protein 6.6 g/dL (6.4-8.2); Troponin I < 0.02 ng/mL (0.00-0.056)
--- NOTE | 2019-10-07 09:40 | PC.NURSE ---
patient reports that she was to see DR Gamez at [place] today at 11am, charge account identification clerk to call to cancel appointment and attempt to reschedule for patient
--- NOTE | 2019-10-07 11:00 | PC.NURSE ---
In bed, HOB elevated, denies needs, oxygen on at 2 L nc
--- NOTE | 2019-10-07 11:42 | PM.IMHP ---
H&P: HPI History of Present Illness Chief complaint: SOB <Abida Bean, REGIONAL FACILITIES SPECIALIST - Last Filed: 10/07/19 15:23> Narrative: Padmini Monreal is a 69 year old female admitted with increasing shortness of breath, 2 to 3+ lower extremity pitting edema that has recently worsened over the last couple of days, and weakness. Padmini was admitted about 1 week ago for similar reasons, and on September 06 was examined in the ER for similar reasons. She is to follow-up with jazz musician Dr. Mccloud this Sunday at 10:30 a.m., she has never followed with a jazz musician prior to this. She also has never had a sleep study done, and does not use CPAP at home at this time. She did get started on nebulizer treatments at home and recently received a nebulizer machine, to be used 3 times a day, but has not really started using that. She does not have a productive cough. At home, she has been using Advair inhaler and albuterol nebs at home and diuresing with oral Lasix daily b.i.d. She stated that she has been taking her Lasix twice a day 40 mg orally at home but noted she really isn't putting out that much urine. She denies any chest pain, chest pressure, numbness or tingling to her arm shoulder or jaw, denies fever or chills, nausea vomiting, abdominal pain, diarrhea or constipation. Padmini has a history of COPD, asthma, history of CVA with right-sided weakness, atrial fibrillation, hypertension, hyperlipidemia, CHF, atrial ablation due to a flutter in January of 2019, andCHF with exacerbation. on Padmini's previous hospitalization here, she had an echo performed on September 24 that showed EF of 65-70%, abnormal left ventricular diastolic function with a moderately increased LV wall thickness, moderately enlarged left atrium, moderate aortic valve stenosis, mild pulmonary hypertension with a PA pressure 45. Today she is still feeling short of breath with conversation, even while at rest, and she has some wheezing. She is requiring 2 L of oxygen nasal cannula to maintain her O2 sats. Ordered her Advair inhaler to be scheduled, ordered her DuoNebs TIDRT, and started her on incentive spirometer hourly. WBC 5.0. K 3.7, Na 143, Creatinine 0.84, Gluc 163, Mag 1.9. BNP 136 at admission and 146 today. Her D-dimer was 1.22 on September 23 with a CTA that was negative for PE but showed some scattered pulmonary nodules; then and D-dimer was 0.73 on October 06 and CXR showed no cardiopulmonary concerns. Continued her home daily Eliquis at 5 mg b.i.d.. While she is currently requiring 2 L of oxygen, she had no oxygen use at home prior to this hospitalization. She will need a home O2 study completed prior to discharge and she should be sent on for a sleep study. EKG reviewed. Trops x 3 WNL. Her urine cultures and blood cultures are pending. No fevers or chills noted. Her urinalysis showed positive for UTI in my opinion. Will continue her IV Rocephin dosing. Both of her lower extremities are tight with 3+ pitting edema, red in color, and her right lower extremity is tender to the touch; that paired with her elevated D-dimer I decided to order an ultrasound of her lower extremities. Her ultrasound showed no DVTs at this time. The patient states that she has been taking her Lasix regularly every day, but apparently it is not working effectively for her diuresis, Dr. Brito and I both discussed and agreed that we would switch her to Demadex at this time, so his she has been started on Demadex 40 mg b.i.d.. Will continue to monitor her intake and output daily closely, as well as daily weights, and added a fluid restriction diet. I have ordered compression stockings, [place] hose to be applied daily, PT and OT evaluation and treat. Ordered daily CBCs, BNPs, and CMPs. <Abida Bean REGIONAL FACILITIES SPECIALIST - Last Filed: 10/07/19 15:23> Review of Systems Review of Systems: All systems reviewed & are unremarkable except as noted in HPI and below <Abida Bean NP - Last Filed: 10/07/19 15:23> Constitutional: Consti
--- NOTE | 2019-10-07 12:20 | PC.NURSE ---
sitting up in bed, feeds self,
[2019-10-07] MEDS: TORSEMIDE 20 MG TABLET 40 MG PO ×2 (12:39→17:10)
--- NOTE | 2019-10-07 12:43 | PC.NURSE ---
fluid restriction started, demedex started as ordered
--- NOTE | 2019-10-07 13:07 | PC.NURSE ---
Patient able to get up and out of bed on own and up to commode chair to attempt to have BM
[2019-10-07] MEDS: IPRATROPIUM 0.5 MG/ALBUTEROL SULFATE 2.5 MG AMPUL.NEB 3 ML INHALATION ×2 (13:26→19:49)
--- NOTE | 2019-10-07 13:30 | PC.NURSE ---
Up to chair per PT department
--- NOTE | 2019-10-07 14:00 | PC.NURSE ---
In chair with legs elevated, denies needs, personal items in reach
[2019-10-07] MEDS: SALMET XINAFT/FLUTIC PROPIN 250 MCG/50 MCG INH CAP 1 PUFF INHALATION (17:09)
--- NOTE | 2019-10-07 17:28 | PC.NURSE ---
In chair eating dinner, feeds self, no pain at this time, oxygen on at 2L NC
--- NOTE | 2019-10-07 18:17 | PC.NURSE ---
Remains in chair, on the phone with family, denies needs at this time
--- NOTE | 2019-10-07 19:00 | PC.NURSE ---
Patient in bedside chair. Denies pain/complaints/needs @ this time. Call light in reach.
--- NOTE | 2019-10-07 20:00 | PC.NURSE ---
Patient to bed with walker and SBA. Denies pain/complaints/needs @ this time. Call light in reach.
--- NOTE | 2019-10-07 21:10 | PC.NURSE ---
Patient appears to be sleeping by the rise and fall of her chest. O2 continues @ 2 lpm/nc. No distress noted. Call light in reach.
--- NOTE | 2019-10-07 22:05 | PC.NURSE ---
Patient appears to be sleeping by the rise and fall of her chest. O2 continues @ 2 lpm/nc. No distress noted. Call light in reach.
--- NOTE | 2019-10-07 23:05 | PC.NURSE ---
Patient appears to be sleeping by the rise and fall of her chest. O2 continues @ 2 lpm/nc. No distress noted. Call light in reach.
[2019-10-08] VITALS (12 sets, daily range): BP systolic 103–123; BP diastolic 42–57; PULSE 76–113; RESP 18–20; TEMP 36.4–36.5; O2SAT 95–99
--- NOTE | 2019-10-08 | PC.NURSE ---
Patient awakened easily for VS. Respirations even and unlabored. O2 continues @ 2 lpm/nc. Denies pain/complaints/needs @ this time. No distress noted. Call light in reach.
--- NOTE | 2019-10-08 01:10 | PC.NURSE ---
Patient ambulated to/from bathroom with walker and SBA with steady gait. O2 continues @ 2 lpm/nc. No SOB noted. Denies pain/complaints/needs @ this time. No distress noted. Call light in reach.
--- NOTE | 2019-10-08 02:05 | PC.NURSE ---
Patient appears to be sleeping by the rise and fall of her chest. O2 continues @ 2 lpm/nc. No distress noted. Call light in reach.
--- NOTE | 2019-10-08 03:05 | PC.NURSE ---
Patient appears to be sleeping by the rise and fall of her chest. O2 continues @ 2 lpm/nc. No distress noted. Call light in reach.
--- NOTE | 2019-10-08 04:00 | PC.NURSE ---
Patient barely awakened for VS. O2 continues @ 2 lpm/nc. Denies pain/complaints/needs @ this time. No distress noted. Call light in reach.
--- NOTE | 2019-10-08 05:05 | PC.NURSE ---
Patient appears to be sleeping by the rise and fall of her chest. O2 continues @ 2 lpm/nc. No distress noted. Call light in reach.
[2019-10-08] MEDS: SALMET XINAFT/FLUTIC PROPIN 250 MCG/50 MCG INH CAP 1 PUFF INHALATION (05:32)
[2019-10-08] MEDS: IPRATROPIUM 0.5 MG/ALBUTEROL SULFATE 2.5 MG AMPUL.NEB 3 ML INHALATION ×2 (05:32→13:35)
--- NOTE | 2019-10-08 06:05 | PC.NURSE ---
Patient sitting on side of bed. O2 continues @ 2 lpm/nc. Respirations even and unlabored. Denies pain/complaints/needs @ this time. Rothman catheter patent and draining clear yellow urine. No distress noted. Call light in reach.
[2019-10-08 06:09] LABS: Hematocrit 33.8 % (35.0-42.0); Hemoglobin 10.5 g/dL (11.7-13.8); Mean Corpuscular HGB Conc 31.1 g/dL (32.0-36.0); Mean Corpuscular Hemoglobin 29.7 pg (27.0-31.0); Mean Corpuscular Volume 95.8 fL (78.0-102.0); Mean Platelet Volume 10.9 fl (9.2-11.8); Platelet Count Result 182 K/mm3 (150-420); Red Blood Count 3.53 M/mm3 (4.20-5.40); Red Cell Distribution Width 14.2 % (11.6-14.4); White Blood Count 4.7 K/mm3 (4.8-10.8)
[2019-10-08 06:24] LABS: Alanine Aminotransferase 16 U/L (14-59); Albumin Level 3.5 g/dL (3.4-5.0); Alkaline Phosphatase 89 U/L (46-116); Anion Gap 11.3 mmol/L (7-16); Aspartate Amino Transferase 16 U/L (15-37); Bilirubin,Total 0.6 mg/dL (0.00-1.00); Blood Urea Nitrogen 20 mg/dL (7-18); Calcium 8.5 mg/dL (8.5-10.1); Carbon Dioxide 33 mmol/L (21-32); Chloride 102 mmol/L (98-108); Estimated CRCL calculation 98 ml/min; Estimated Glomerular Filt Rate > 60; Glucose 96 mg/dL (70-99); Osmolality Calculated 296 mOsm/kg (285-295); Potassium 4.3 mmol/L (3.5-5.1); Sodium 142 mmol/L (136-145); Total Protein 6.9 g/dL (6.4-8.2)
[2019-10-08 06:44] LABS: BNP 64.6 pg/mL (0-100)
[2019-10-08 06:45] LABS: Magnesium 1.8 mg/dL (1.8-2.4); Phosphorus 5.1 mg/dL (2.6-4.7)
--- NOTE | 2019-10-08 07:16 | HOMEO2EVAL ---
Home Oxygen Evaluation RC: Home Oxygen (O2) Evaluation Start: 10/08/19 09:00 Freq: ONCE Status: Active Protocol: RPE Activity Type Activity Date Activity User E-Sign Co-Sign Detail Recorded Client Recorded Date Recorded By Document 10/08/19 06:50 ROLAND [id number] 10/08/19 07:16 SJB Document 10/08/19 06:51 SJB [id number] 10/08/19 07:16 SJB 10/08/19 10/08/19 06:50 06:51 Home O2 Evaluation Test Phase Resting Exercise Oxygen Delivery Room Air Room Air Pulse Oximetry (90-100 %) 97 97 Pulse Rate (60-100 beats/min) 100 113 H Activity Tolerance Excellent Rating of Perceived Dyspnea (PD) +1 Mild, +2 Mild, Some Noticeable to Difficulty, the Participant Noticeable to but Not to an the Observer Observer Rate of Perceived Exertion (PE) 12 Ambulation Distance (feet) 400 Home Oxygen Evaluation Comments PT LISA WELL. PUSHING WHEELCHAIR ON ROOM AIR. SP02S STAYED 96-97%. GREAT EFFORT, NO ISSUES OR COMPLAINTS. Treatment Charges O2 Evaluation
[2019-10-08] MEDS: APIXABAN 2.5 MG TABLET 5 MG PO (09:24)
[2019-10-08] MEDS: ATORVASTATIN 40 MG TABLET 80 MG PO (09:24)
[2019-10-08] MEDS: CLONIDINE HCL 0.2 MG TABLET PO (09:25)
[2019-10-08] MEDS: DULOXETINE HCL 30 MG CAPSULE.DR 60 MG PO (09:25)
[2019-10-08] MEDS: PANTOPRAZOLE 40 MG TABLET PO (09:25)
[2019-10-08] MEDS: TORSEMIDE 20 MG TABLET 40 MG PO (09:25)
[2019-10-08] MEDS: POTASSIUM CHLORIDE 10 MEQ TABLET PO (09:25)
[2019-10-08] MEDS: PRAMIPEXOLE 0.25 MG TABLET 1 MG PO ×2 (09:29→12:48)
--- NOTE | 2019-10-08 09:30 | PC.NURSE ---
ednise discontinued at this time, tolerated well
--- NOTE | 2019-10-08 11:07 | PC.NURSE ---
Up in chair, independent in room denies needs, telemetry SR
--- NOTE | 2019-10-08 11:28 | PC.NURSE ---
Assisted up from bathroom to bed, states did ok walking to bathroom on own, felt a little dizzy when tried to get up, so call for assist, gait steady with stand by assist, to bed , telemetry noted SR no ectopy noted
--- NOTE | 2019-10-08 12:56 | PC.NURSE ---
Observing fluid restriction, no distress noted, telemetry SR, encouraged to keep legs elevated, up and moving about room with walker
--- NOTE | 2019-10-08 13:26 | PM.DS ---
DS: Diagnosis Admitting Diagnosis Admitting Diagnosis: Acute on chronic diastolic (congestive) heart failure Discharge Diagnosis (1) Acute exacerbation of CHF (congestive heart failure): Qualifiers: Heart failure type: diastolic Qualified Code(s): I50.33 - Acute on chronic diastolic (congestive) heart failure Code(s): I50.9 - Heart failure, unspecified Status: Acute Assessment and Plan: ACUTE on CHRONIC Chronic pulmonary edema, chronic BLE edema, and Chronic abdominal edema with ascites acute 2 + pitting BLE ECHO on 09/25/2019 showed: EF of 65-70%, abnormal left ventricular diastolic function with a moderately increased LV wall thickness, moderately enlarged left atrium, moderate aortic valve stenosis, mild pulmonary hypertension with a PA pressure 45. BNP within normal limits Lasix discontinue patient will discharge on Bumex 1 mg b.i.d. follow-up withcardiologist Dr. Mccloud after discharge, either this Sunday at 10:30 a.m. (2) COPD (chronic obstructive pulmonary disease): Qualifiers: COPD type: unspecified COPD Qualified Code(s): J44.9 - Chronic obstructive pulmonary disease, unspecified Code(s): J44.9 - Chronic obstructive pulmonary disease, unspecified Status: Acute Assessment and Plan: CT on September 24 showed persistent atelectasis bilaterally. Calcified left lung nodules and calcified left hilar lymph nodes are consistent with old granulomatous disease. There are a few scattered nodules measuring up to 4 mm, likely benign. no pulmonary embolus. The central pulmonary arteries are enlarged, consistent with pulmonary arterial hypertension. Uses Flovent and Albuterol at home. home O2 eval indicates that she does not need oxygen (3) Elevated d-dimer: Code(s): R79.89 - Other specified abnormal findings of blood chemistry Status: Acute Assessment and Plan: possibly secondary to chronic CHF Continued her home daily Eliquis at 5 mg b.i.d.. ultrasound Doppler negative for DVT (4) UTI (urinary tract infection): Code(s): N39.0 - Urinary tract infection, site not specified Status: Acute Assessment and Plan: UA positive for nitrates Her urine cultures and blood cultures are pending. No fevers or chills noted. urinalysis showed positive for UTI patient discharged with Bactrim. DS: Summary Hospital Course Hospital Course: patient's admission H and P 10/07/19 Padmini Monreal is a 69 year old female admitted with increasing shortness of breath, 2 to 3+ lower extremity pitting edema that has recently worsened over the last couple of days, and weakness. Padmini was admitted about 1 week ago for similar reasons, and on September 06 was examined in the ER for similar reasons. She is to follow-up with chief librarian branch or department Dr. Mccloud this Sunday at 10:30 a.m., she has never followed with a chief librarian branch or department prior to this. She also has never had a sleep study done, and does not use CPAP at home at this time. She did get started on nebulizer treatments at home and recently received a nebulizer machine, to be used 3 times a day, but has not really started using that. She does not have a productive cough. At home, she has been using Advair inhaler and albuterol nebs at home and diuresing with oral Lasix daily b.i.d. She stated that she has been taking her Lasix twice a day 40 mg orally at home but noted she really isn't putting out that much urine. She denies any chest pain, chest pressure, numbness or tingling to her arm shoulder or jaw, denies fever or chills, nausea vomiting, abdominal pain, diarrhea or constipation. Padmini has a history of COPD, asthma, history of CVA with right-sided weakness, atrial fibrillation, hypertension, hyperlipidemia, CHF, atrial ablation due to a flutter in January of 2019, andCHF with exacerbation. on Padmini's previous hospitalization here, she had an echo performed on September 24 that showe
--- NOTE | 2019-10-08 13:55 | PC.NURSE ---
Discharge orders received, patient dressing self and telemetry removed,
--- NOTE | 2019-10-08 14:46 | PC.NURSE ---
Discharge to home with personal belongnings, no questions regarding discharge instructions
--- NOTE | 2019-10-08 19:30 | P.PNCROSS_ITS ---
Event Note Event Note Event Note: Patient states she is feels much better this morning and states that she wants to go home. She denies chest pain. Off O2. She states that her breathing and edema feel better today. She is scheduled to see her motor polarizer on Sunday. Alert and oriented. No acute distress. Few bibasilar wheezes on expiration. Regular rate and rhythm w/o murmur or gallop. 2 to 3+ pitting edema at the ankles bilaterally. Will switch her to Bumex p.o. and give her a fluid restriction for discharge. I have examined the patient and reviewed the chart. I discussed the patient's care with Luli Hernandez APN and agree with her assessment and plan.
--- NOTE | 2019-10-14 15:21 | PC.NURSE ---
DISCHARGE FOLLOW UP CALL: No answer, message left
--- NOTE | 2019-10-15 15:30 | PC.NURSE ---
#2 DISCHARGE FOLLOW UP CALL: No answer, attempted to leave message mailbox full .
== END 2019-10-08 14:05 | disposition home or self-care (01) ==
LOC: CHSED 02:17 → CHS2ND 02:21
PROVIDERS: Nurse Practitioner; Admitting Provider Emergency Medicine; Emergency Provider Emergency Medicine; PCP Nurse Practitioner Family; Visit Provider Emergency Medicine
DX: I11.0 Hypertensive heart disease with heart failure (principal); I50.33 Acute on chronic diastolic (congestive) heart failure; N39.0 Urinary tract infection, site not specified; J44.9 Chronic obstructive pulmonary disease, unspecified; I69.351 Hemiplegia and hemiparesis following cerebral infarction affecting right dominant side; I48.20 Chronic atrial fibrillation, unspecified; M79.604 Pain in right leg; R60.9 Edema, unspecified; E78.5 Hyperlipidemia, unspecified; I35.8 Other nonrheumatic aortic valve disorders; K21.9 Gastro-esophageal reflux disease without esophagitis; E66.01 Morbid (severe) obesity due to excess calories; Z96.653 Presence of artificial knee joint, bilateral
CPT/HCPCS: 36415; 36600; 71045; 80053; 81001; 82805; 83735; 83880; 84100; 84484; 85025; 85027; 85380; 85610; 85730; 87040; 87077; 87086; 87088; 87186; 93005; 93970; 94618; 94640; 96365; 96375; 97161; 99285; A9270; G0378; J0696; J1940

== ENCOUNTER 2019-11-20 02:11 | Observation (INO) | payer MEDICARE, SELFPAY ==
[2019-11-20] VITALS (12 sets, daily range): BP systolic 105–160; BP diastolic 55–85; PULSE 73–96; RESP 14–20; TEMP 35.9–36.6; O2SAT 94–99; BMI 46.7
--- NOTE | ~2019-11-20 | US_ITS ---
EXAMINATION: US carotid duplex BI DATE: 11/20/2019 15:41 INDICATION: Subjective visual disturbance. Left temporal/head pain. TECHNIQUE: Grayscale, color Doppler, and pulsed Doppler images of the cervical carotid arteries were obtained. The degree of vessel stenosis is placed in one of the following categories: normal, <50%, 5 0-69%, >=70% but less than near-occlusion, near-occlusion, or total occlusion. Note that percent sten osis relative to normal distal artery lumen diameter is indirectly measured from velocity measurement s as described by Eber, et al. Radiology 2003; 229:340-346. COMPARISON: None. FINDINGS: RIGHT: The right common carotid artery (CCA) peak systolic velocity (PSV) is 76 cm/s. The right internal car otid artery (ICA) PSV is 67 cm/s. The right ICA end-diastolic velocity (EDV) is 26 cm/s. The right IC A/CCA PSV ratio is 0.9. Grayscale and color Doppler images yield an estimate of <50% diameter reducti on from plaque in the ICA. The external carotid artery (ECA) PSV is 91 cm/s. There is antegrade flow in the right vertebral artery. LEFT: The left CCA PSV is 64 cm/s. The left ICA PSV is 92 cm/s. The left ICA EDV is 31 cm/s. The left ICA/C CA PSV ratio is 1.4. Grayscale and color Doppler images yield an estimate of <50% diameter reduction from plaque in the ICA. The ECA PSV is 98 cm/s. There is antegrade flow in the left vertebral artery. IMPRESSION: 1. <50% stenosis in the right internal carotid artery. 2. <50% stenosis in the left internal carotid artery. Reviewed, dictated and finalized at location A.
--- NOTE | ~2019-11-20 | XR_ITS ---
EXAMINATION: XR chest 1V portable DATE: 11/20/2019 03:24 INDICATION: Shortness of breath. TECHNIQUE: A single frontal view of the chest was obtained. COMPARISON: Chest single view 10/07/2019, chest CT 09/25/2019 FINDINGS: There are mild airspace opacities in right perihilar region. No pleural effusion or pneumot horax. Cardiomegaly is noted. There are prominent paracardial fat pads. Median sternotomy wires are n oted. IMPRESSION: 1. Mild airspace opacities in right perihilar region, consistent with atelectasis versus pneumonia. 2. Cardiomegaly. Reviewed, dictated and finalized at location A. IMPRESSION: 1. Mild airspace opacities in right perihilar region, consistent with atelectas is versus pneumonia. 2. Cardiomegaly.
--- NOTE | 2019-11-20 02:23 | ECG_ITS ---
Measurements Intervals [place] Rate: 86 P: 51 ND: 191 QRS: 95 QRSD: 117 T: 34 QT: 396 QTc: 476 Interpretive Statements SINUS RHYTHM RIGHT AXIS DEVIATION INCOMPLETE RIGHT BUNDLE BRANCH BLOCK MINIMAL Q WAVES- INFERIOR LEADS BORDERLINE ECG Electronically Signed On 11-20-2019 7:06:32 CDT by Hiren Mccloud D.O.
--- NOTE | 2019-11-20 02:25 | ED.GENADULT ---
HPI - General Adult General Chief complaint: Shortness of Breath/Dyspnea Stated complaint: SHORTNESS OF BREATHE History of Present Illness HPI narrative: Padmini is a 69F with a PMH of HFpEF, CAD, HTN, GERD, Aflutter and GERD that presented to the ED with SOB for 5-6 days. She has a history of CHF exacerbations where she builds up fluid and gets SOB and it feels like this. Since last she has had increasing swelling in her legs bilaterally, increased SOB, increased orthopnea, and exercise intolerance. She has an occasional catch in her chest that shoots to her right arm but no other CP right now. Related Data Home Medications Medication Instructions Recorded Confirmed albuterol sulfate 2 puff INHALATION PRN PRN 09/07/19 11/20/19 atorvastatin 80 mg PO DAILY 09/07/19 11/20/19 omeprazole 40 mg PO BID 09/07/19 11/20/19 pramipexole 1 mg PO TID 09/07/19 11/20/19 gabapentin 100 mg capsule 100 mg PO BID 10/10/19 11/20/19 Allergies Allergy/AdvReac Type Severity Reaction Status Date / Time methylprednisolone AdvReac Agitated Verified 10/15/19 09:14 [From Solu-Medrol] prochlorperazine AdvReac Unknown Verified 10/15/19 09:14 [From Compazine] Review of Systems Constitutional: Constitutional: Denies chills, Reports fatigue and Denies fever(s) Eyes: Eyes: Reports no additional eye complaints ENT: Reports system reviewed and no additional complaints, except as documented Cardiovascular: Cardiovascular: Reports as per HPI Respiratory: Respiratory: Reports as per HPI Gastrointestinal: Gastrointestinal: Reports no additional gastrointestinal complaints Genitourinary: Genitourinary: Reports no additional female genitourinary complaints Musculoskeletal: Musculoskeletal: Reports no additional musculoskeletal complaints Integumentary/Breasts: Skin/Breast: Reports system reviewed and no additional complaints, except as docu Neurologic: Reports system reviewed and no additional complaints, except as documented Psychiatric: Psychiatric: Reports no additional psychiatric complaints [facility] Past Medical History Medical History Aortic valve sclerosis Asthma Atrial flutter COPD (chronic obstructive pulmonary disease) CVA (cerebral vascular accident) GERD (gastroesophageal reflux disease) Hypercholesteremia Hypertension Morbid obesity with BMI of 45.0-49.9, adult Surgical History Surgical History H/O section H/O foot surgery Bilateral H/O: hysterectomy History of appendectomy History of cholecystectomy History of knee replacement, total Bilateral Hx of CABG Family History Family History Father CVD (cardiovascular disease) Mother CVD (cardiovascular disease) Ovarian cancer Sibling CVD (cardiovascular disease) Pancreatic cancer Social History Social History Smoking status: Never smoker Second hand tobacco smoke exposure: Yes Alcohol intake: never Drinks per week: 1 Substance use: never Substance use type: does not use Gender identity (if verbalized by the patient): Female Spiritual care concerns: No Agree to blood products: Yes Exam Const: General: no acute distress; No confusion Orientation/consciousness: patient oriented x3 Limitations: altered mental status HENMT: Other: normocephalic, atraumatic Eyes: Conjunctivae: conjunctivae normal Pupils: Equal, round and reactive pupils present Neck: Neck: normal visual inspection Chest: Chest palpation & inspection: normal inspection of the chest Resp: Effort & Inspection: labored Auscultation: wheezes Other: slightly increased work of breathing orthopnea present Cardio: Rate: regular rate Rhythm: regular rhythm Heart sounds: no murmurs Other: 3+ pitting edema of to the tibial pl
[2019-11-20] MEDS: FUROSEMIDE INJ 40 MG/4 ML VIAL IV PUSH ×3 (02:49→16:42)
[2019-11-20 02:57] LABS: Basophils Absolute Auto 0.03 K/mm3 (0.00-0.10); Basophils Percent Auto 0.5 % (0.0-1.0); Eosinophils Absolute Auto 0.11 K/mm3 (0.02-0.50); Hematocrit 33.7 % (35.0-42.0); Hemoglobin 10.5 g/dL (11.7-13.8); Immature Granulocyte Absolute 0.05 K/mm3 (0.00-0.00); Immature Granulocyte Percent A 0.9 % (0.0-0.0); Lymphocytes Absolute Auto 2.02 K/mm3 (1.10-4.50); Lymphocytes Percent Auto 36.7 % (18.0-42.0); Mean Corpuscular HGB Conc 31.2 g/dL (32.0-36.0); Mean Corpuscular Hemoglobin 28.9 pg (27.0-31.0); Mean Corpuscular Volume 92.8 fL (78.0-102.0); Mean Platelet Volume 10.8 fl (9.2-11.8); Monocytes Absolute Auto 0.59 K/mm3 (0.10-0.90); Monocytes Percent Auto 10.7 % (2.0-11.0); Neutrophils Absolute Auto 2.7 K/mm3 (1.7-7.2); Neutrophils Percent Auto 49.2 % (50.0-70.0); Platelet Count Result 180 K/mm3 (150-420); Red Blood Count 3.63 M/mm3 (4.20-5.40); Red Cell Distribution Width 14.5 % (11.6-14.4); White Blood Count 5.5 K/mm3 (4.8-10.8)
[2019-11-20 03:06] LABS: Prothrombin Time 10.7 Seconds (9.64-11.0)
--- NOTE | 2019-11-20 03:07 | PC.NURSE ---
PT SLEEPING, EASILY AWAKENED. BACK TO SLEEP WHILE STARTING IV. NO RESP DISTRESS NOTED.
[2019-11-20 03:14] LABS: Alanine Aminotransferase 18 U/L (14-59); Albumin Level 3.3 g/dL (3.4-5.0); Alkaline Phosphatase 73 U/L (46-116); Anion Gap 11.7 mmol/L (7-16); Aspartate Amino Transferase 16 U/L (15-37); Bilirubin,Total 0.6 mg/dL (0.00-1.00); Blood Urea Nitrogen 14 mg/dL (7-18); Calcium 8.4 mg/dL (8.5-10.1); Carbon Dioxide 28 mmol/L (21-32); Chloride 107 mmol/L (98-108); Estimated CRCL calculation 79 ml/min; Estimated Glomerular Filt Rate > 60; Glucose 100 mg/dL (70-99); Osmolality Calculated 296 mOsm/kg (285-295); Potassium 3.7 mmol/L (3.5-5.1); Sodium 143 mmol/L (136-145); Total Protein 6.8 g/dL (6.4-8.2)
[2019-11-20 03:21] LABS: Troponin I < 0.02 ng/mL (0.00-0.056)
[2019-11-20 03:30] LABS: BNP 108 pg/mL (0-100)
--- NOTE | 2019-11-20 04:05 | ADMGEN ---
This patient, Padmini Monreal, was admitted to 2nd Floor Room 203-2. Patient oriented to hospital policies and general routines including ID bracelet, bed and alarms, visiting hours, pain management, procedures, bathroom and other care routines, personal items, smoking policy, room service/diet, and visiting hours. Valuables list has been completed in ER. Information on how to activate the Rapid Response Team has been discussed. Patient are encouraged to report perceived risks to care and to ask questions if they do not understand what they are told or what they should do.
--- NOTE | 2019-11-20 07:56 | ECG_ITS ---
Measurements Intervals [place] Rate: 71 P: 51 NV: 185 QRS: 83 QRSD: 117 T: 46 QT: 428 QTc: 466 Interpretive Statements SINUS RHYTHM INCOMPLETE RIGHT BUNDLE BRANCH BLOCK DELAYED PRECORDIAL R/S TRANSITION MINIMAL Q WAVES- INFERIOR LEADS BORDERLINE ECG Electronically Signed On 11-20-2019 8:38:36 CDT by Hiren Mccloud D.O.
[2019-11-20] MEDS: PRAMIPEXOLE 0.25 MG TABLET 1 MG PO ×3 (09:12→16:42)
[2019-11-20] MEDS: DULOXETINE HCL 30 MG CAPSULE.DR 60 MG PO (09:13)
[2019-11-20] MEDS: ATORVASTATIN 40 MG TABLET 80 MG PO (09:13)
[2019-11-20] MEDS: AMLODIPINE BESYLATE 5 MG TABLET 10 MG PO (09:13)
[2019-11-20] MEDS: AMOXICILLIN/CLAVULANATE K 875-125 MG TAB 1 TABLET PO ×2 (09:13→21:14)
[2019-11-20] MEDS: GABAPENTIN 100 MG CAPSULE PO ×2 (09:14→16:42)
[2019-11-20] MEDS: AZITHROMYCIN 250 MG TABLET 500 MG PO (09:14)
[2019-11-20] MEDS: CLONIDINE HCL 0.2 MG TABLET PO (09:14)
[2019-11-20] MEDS: APIXABAN 2.5 MG TABLET 5 MG BY MOUTH ×2 (09:14→16:42)
[2019-11-20] MEDS: PANTOPRAZOLE 40 MG TABLET PO ×2 (09:14→16:42)
[2019-11-20] MEDS: POTASSIUM CHLORIDE 10 MEQ TABLET PO (09:14)
[2019-11-20] MEDS: BUMETANIDE 1 MG TABLET PO ×2 (09:14→16:43)
[2019-11-20 09:34] LABS: Troponin I < 0.02 ng/mL (0.00-0.056)
[2019-11-20 09:35] LABS: CRP 0.7 mg/dL (0.0-0.9)
[2019-11-20 09:36] LABS: Magnesium 2.1 mg/dL (1.8-2.4); Phosphorus 4.2 mg/dL (2.6-4.7)
[2019-11-20 09:36] LABS: Thyroid Stimulating Hormone Reflex 2.58 u/IU/mL (0.36-3.74)
[2019-11-20 10:03] LABS: Erythrocyte Sedimentation Rate 30 mm/hr (0-20)
--- NOTE | 2019-11-20 11:11 | PM.IMHP ---
H&P: HPI History of Present Illness Chief complaint: HFPEF exacerbation Narrative: Padmini Monreal is a 69 year old female admitted with shortness of breath and dyspnea. She knew she had been progressively gaining fluid in her legs and feet as well as progressively getting more short of breath over the last 5-6 days. She stated that when she got up this morning to go to the bathroom, that she was unable to breathe to the point where she became panicked that she would be able to breathe; that is when she decided to come into the ED. She has a history of CHF exacerbations where she builds up fluid and gets SOB and it feels like this, according to the ED admission note. Since last she has had increasing swelling in her legs bilaterally, increased SOB, increased orthopnea, and exercise intolerance. She has an occasional catch in her chest that shoots to her right arm but no other CP right now. Per report, Dr. Singleton did notice crackles with lung auscultation. Padmini has a PMH of HFpEF, CAD, HTN, GERD, Aflutter and GERD. Her admission CXR radiology showed subtle multifocal opacities in the right perihilar region concerning for pneumonia Versus atelectasis, with cardiomegaly. ER physician ordered Oral Azithromycin and Augmentin. Today when I went to see Padmini, she was getting around her hospital well, with no shortness of breath or dyspnea noted. I had ordered PT and OT to complete their evaluation today as well. She has been using oxygen nasal cannula on and off throughout the morning for periods of dyspnea, 1-2 L. She is able to transfer and ambulate independently. She does appear to have stamina issues as well as CHF exacerbation and generalized weakness which I discussed with PT and we both agreed she could benefit from outpatient physical therapy after discharge. Padmini does have some noted daytime sleepiness as well, and when I inquired about having a sleep study, she stated that was 1 of the things she had yet to do. Her lung auscultation today was diminished throughout, but no crackles noted and no wheezes. Her legs continue to have bilaterally 3+ pitting edema, the redness is minimal and seems much improved from her last admission. I have ordered Kenroy compression stockings to be applied as well as for the patient to elevate her legs anytime that she is not actively walking. We will continue the 1 mg b.i.d. home dose of Bumex as well as continue 40 mg of Lasix IV b.i.d., while monitoring strict I and O and daily weights and VS q.4 hours. she is currently on telemetry monitoring continuously with her heart rate in the 70s and 80s. Her BNP is 108 today, in the past it has been 136, 146 and 64. Repeat EKG as needed for symptoms, troponin x1 is negative. Will continue diuresis for Acute on Chronic CHF. Review of Systems Review of Systems: All systems reviewed & are unremarkable except as noted in HPI and below Constitutional: Constitutional: Reports as per HPI, Denies chills, Reports fatigue and Denies fever(s) Eyes: Eyes: Reports as per HPI and Reports no additional eye complaints ENT: Reports system reviewed and no additional complaints, except as documented and Reports as per HPI Cardiovascular: Cardiovascular: Reports as per HPI Respiratory: Respiratory: Reports as per HPI Gastrointestinal: Gastrointestinal: Reports as per HPI and Reports no additional gastrointestinal complaints Genitourinary: Genitourinary: Reports no additional female genitourinary complaints and Reports as per HPI Musculoskeletal: Musculoskeletal: Reports no additional musculoskeletal complaints and Reports as per HPI Integumentary/Breasts: Skin/Breast: Reports system reviewed and no additional complaints, except as docu and Reports as per HPI Neurologic: Reports system reviewed and no additional complaints, except as documented, Reports as per HPI and Denies confusion Psychiatric: Psychiatric: Reports no additional psychiatric complaints, Reports as per HPI
[2019-11-20 11:26] LABS: Appearance Urine Clear (Clear); Color Urine Light Yellow (Yellow); Glucose Urine UA Negative (Negative); Ketones Urine Negative (Negative); Protein Urine Negative (Negative)
[2019-11-20 11:28] LABS: Add Urine Microscopic? NO; Bilirubin Urine Negative (Negative); Blood Urine Negative (Negative); Leukocyte Esterase Ur Negative LEU/UL (Negative); Nitrate Urine Negative (Negative); Urobilinogen Urine 0.2 mg/dL (0.2-1.0)
[2019-11-20] MEDS: FLUTICASONE PROP 110 MCG INHALER 12 GM (*SP) 1 PUFF INHALATION ×2 (13:01→21:14)
[2019-11-20 15:49] LABS: Creatine Kinase 101 U/L (26-192); Troponin I < 0.02 ng/mL (0.00-0.056)
[2019-11-20 15:51] LABS: BNP 125 pg/mL (0-100)
[2019-11-21] VITALS: BP 129/82; PULSE 68; PULSE 70; RESP 20; TEMP 35.9; O2SAT 97
--- NOTE | 2019-11-21 01:15 | ECG_ITS ---
Measurements Intervals [place] Rate: 70 P: 55 NM: 176 QRS: 79 QRSD: 115 T: 48 QT: 466 QTc: 503 Interpretive Statements SINUS RHYTHM INCOMPLETE RIGHT BUNDLE BRANCH BLOCK CONSIDER INFERIOR INFARCT, AGE INDETERMINATE ABNORMAL ECG Electronically Signed On 11-21-2019 7:08:17 CDT by Hiren Mccloud D.O.
--- NOTE | 2019-11-21 01:39 | PC.NURSE ---
Patient called nurse reporting right sided chest pain that starts in her right arm and radiates to the right side of her chest. She states that the pain is constant when it occurs and the it is a sharp feeling pain. She rates it 10/10. Patient states that she has had this pain on and off for about two weeks. She stated that she was talking to the POULTRY TRIMMER about it yesterday and she was told to alert the nurse when the pain starts so that an EKG can be preformed. Dr. Dennis was informed that the patient was having the pain and gave order to obtain an EKG at this time. the patient denies nausea or Shortness of breath. Vital signs were also obtained. EKG was obtained and DR. Dennis reviewed the print out no new orders were received.
[2019-11-21] MEDS: ACETAMINOPHEN 325 MG TABLET 650 MG PO (01:46)
[2019-11-21 04:00] VITALS: BP 135/83; PULSE 72; PULSE 74; RESP 20; TEMP 35.8; O2SAT 96
[2019-11-21 05:48] LABS: Hematocrit 37.3 % (35.0-42.0); Hemoglobin 11.6 g/dL (11.7-13.8); Mean Corpuscular HGB Conc 31.1 g/dL (32.0-36.0); Mean Corpuscular Hemoglobin 28.8 pg (27.0-31.0); Mean Corpuscular Volume 92.6 fL (78.0-102.0); Mean Platelet Volume 10.6 fl (9.2-11.8); Platelet Count Result 197 K/mm3 (150-420); Red Blood Count 4.03 M/mm3 (4.20-5.40); Red Cell Distribution Width 14.4 % (11.6-14.4)
[2019-11-21 06:09] LABS: Alanine Aminotransferase 18 U/L (14-59); Albumin Level 3.6 g/dL (3.4-5.0); Alkaline Phosphatase 83 U/L (46-116); Anion Gap 10.9 mmol/L (7-16); Aspartate Amino Transferase 18 U/L (15-37); Blood Urea Nitrogen 23 mg/dL (7-18); Calcium 8.5 mg/dL (8.5-10.1); Carbon Dioxide 32 mmol/L (21-32); Chloride 102 mmol/L (98-108); Estimated CRCL calculation 60 ml/min; Estimated Glomerular Filt Rate 56; Glucose 105 mg/dL (70-99); Osmolality Calculated 295 mOsm/kg (285-295); Potassium 3.9 mmol/L (3.5-5.1); Sodium 141 mmol/L (136-145); Total Protein 7.6 g/dL (6.4-8.2)
[2019-11-21 06:16] LABS: BNP 42.9 pg/mL (0-100)
[2019-11-21 08:00] VITALS: BP 106/62; BP 137/67; PULSE 68; PULSE 75; PULSE 81; RESP 20; TEMP 36.2; O2SAT 98
--- NOTE | 2019-11-21 08:14 | PM.DS ---
DS: Admitting Diagnosis Admitting Diagnosis Admitting Diagnosis: Morbid (severe) obesity due to excess calories DS: Discharge Diagnosis Discharge Diagnosis (1) Acute exacerbation of CHF (congestive heart failure): Qualifiers: Heart failure type: diastolic Qualified Code(s): I50.33 - Acute on chronic diastolic (congestive) heart failure Code(s): I50.9 - Heart failure, unspecified Status: Acute Assessment and Plan: acute on chronic CHF exacerbation with dyspnea PT and OT eval orthostatic blood vital signs Kenroy compression hose stocking elevate legs when not ambulating Spoke with her Senior Executive Assistant today, he advised that we discharge patient on 2 mg of Bumex twice a day and no other medications at this time. incentive spirometry to improve ventilation Trops x 3 WNL order outpatient PT to treat her poor stamina and generalized weakness repeat an EKG if the patient develops pain in her right arm or chest pain or pressure monitor lung sounds for improvement I and O strict daily weight telemetry monitoring continuously O2 as needed vital signs q.4 hours comparative BNP levels (2) Excessive daytime sleepiness: Code(s): G47.19 - Other hypersomnia Status: Acute Assessment and Plan: the patient has been napping quite a bit today, when I asked her if she was continuing to have excessive sleepiness during the day, she stated she was when I further questioned her about a sleep study, she stated that she still had to get that done will continue to provide her oxygen while she sleeps and naps as needed as she likely has undiagnosed PARRIS due to her multiple comorbidities including obesity, COPD, CHF, diastolic heart dysfunction fall precautions placed PT OT evaluation ordered and completed (3) CAP (community acquired pneumonia): Code(s): J18.9 - Pneumonia, unspecified organism Status: Acute Assessment and Plan: Her admission CXR radiology showed subtle multifocal opacities in the right perihilar region concerning for pneumonia Versus atelectasis, with cardiomegaly. ER physician ordered Oral Azithromycin and Augmentin. continued at discharge for a full 5 day course with dyspnea PT and OT eval orthostatic blood vital signs Kenroy compression hose stocking incentive spirometry to improve ventilation order outpatient PT to treat her poor stamina and generalized weakness repeat an EKG if the patient develops pain in her right arm or chest pain or pressure monitor lung sounds for improvement telemetry monitoring continuously no O2 needed for the past 24 hours follow-up with her PCP and her assistant tennis professional, ordered PFTs outpatient DS: Summary Time Spent with Patient Time attestation: Total time spent providing and/or coordinating discharge services:>90 minutes Exam Const: General: comfortable and no acute distress; No confusion Orientation/consciousness: patient oriented x3 and No confusion Limitations: altered mental status HENMT: General nose exam: no epistaxis Other: normocephalic, atraumatic Eyes: General: appearance normal, both eyes and all related structures Conjunctivae: conjunctivae normal Pupils: Equal, round and reactive pupils present Neck: Neck: normal visual inspection Chest: Chest palpation & inspection: normal inspection of the chest Resp: Effort & Inspection: normal respiratory effort, able to speak in complete sentences, no cough and not labored Auscultation: clear to auscultation bilaterally ( lung sounds throughout all lobes today on auscultation) and no wheezes Other: no difficulty in breathing noted today, even with exertion Cardio: Rate: regular rate Rhythm: regular rhythm Heart sounds: no murmurs Other: 1+ pitting edema of to the tibial plateau GI: Inspection: non-distended Auscultation: normal bowel sounds : General: Yes no CVA tenderness Urinary Catheter: Urinary Catheter: urine clear (
[2019-11-21] MEDS: AMOXICILLIN/CLAVULANATE K 875-125 MG TAB 1 TABLET PO (09:10)
[2019-11-21] MEDS: FLUTICASONE PROP 110 MCG INHALER 12 GM (*SP) 1 PUFF INHALATION (09:10)
[2019-11-21] MEDS: PRAMIPEXOLE 0.25 MG TABLET 1 MG PO ×2 (09:10→12:24)
[2019-11-21] MEDS: APIXABAN 2.5 MG TABLET 5 MG BY MOUTH (09:10)
[2019-11-21] MEDS: AZITHROMYCIN 250 MG TABLET 500 MG PO (09:11)
[2019-11-21] MEDS: PANTOPRAZOLE 40 MG TABLET PO (09:11)
[2019-11-21] MEDS: POTASSIUM CHLORIDE 10 MEQ TABLET PO (09:11)
[2019-11-21] MEDS: CLONIDINE HCL 0.2 MG TABLET PO (09:11)
[2019-11-21] MEDS: GABAPENTIN 100 MG CAPSULE PO (09:11)
[2019-11-21] MEDS: ATORVASTATIN 40 MG TABLET 80 MG PO (09:11)
[2019-11-21] MEDS: AMLODIPINE BESYLATE 5 MG TABLET 10 MG PO (09:11)
[2019-11-21] MEDS: DULOXETINE HCL 30 MG CAPSULE.DR 60 MG PO (09:11)
[2019-11-21] MEDS: FUROSEMIDE INJ 40 MG/4 ML VIAL IV PUSH (09:12)
[2019-11-21] MEDS: BUMETANIDE 1 MG TABLET PO (09:12)
[2019-11-21 09:31] VITALS: BP 114/53; BP 125/75; PULSE 89; PULSE 90
--- NOTE | 2019-11-21 17:44 | PM.EVENT ---
Event Note Event Note Event Note: For this patient encounter, she was sitting on the side of the bed, speaking full sentences without becoming winded. Breath sounds full and clear throughout. 2+ pedal edema with compression hose on. I reviewed Abida Giles NP's documentation, treatment plan, and medical decision making; and I had [id number] time with this patient
== END 2019-11-21 13:15 | disposition home or self-care (01) ==
LOC: CHSED 03:44 → CHS2ND 03:53
PROVIDERS: Nurse Practitioner; Admitting Provider Family Medicine; Emergency Provider Family Medicine; PCP Nurse Practitioner Family; Visit Provider Family Medicine
DX: I11.0 Hypertensive heart disease with heart failure (principal); I50.33 Acute on chronic diastolic (congestive) heart failure; J18.9 Pneumonia, unspecified organism; I25.10 Atherosclerotic heart disease of native coronary artery without angina pectoris; K21.9 Gastro-esophageal reflux disease without esophagitis; I48.92 Unspecified atrial flutter; I35.8 Other nonrheumatic aortic valve disorders; J45.909 Unspecified asthma, uncomplicated; H53.8 Other visual disturbances; E78.00 Pure hypercholesterolemia, unspecified; G47.19 Other hypersomnia; E66.01 Morbid (severe) obesity due to excess calories; Z86.73 Personal history of transient ischemic attack (TIA), and cerebral infarction without residual deficits; Z95.1 Presence of aortocoronary bypass graft; Z96.653 Presence of artificial knee joint, bilateral
CPT/HCPCS: 36415; 71045; 80053; 81003; 82550; 82553; 83735; 83880; 84100; 84443; 84484; 85025; 85027; 85610; 85652; 86140; 93005; 93880; 96374; 96376; 97161; 97165; 99285; A9270; G0378; J1940

== ENCOUNTER 2019-12-13 05:20 | Inpatient (IN) | payer MEDICARE, SELFPAY ==
[2019-12-13] VITALS (11 sets, daily range): BP systolic 105–136; BP diastolic 49–64; PULSE 85–100; RESP 18–24; TEMP 36.4–38.9; O2SAT 95–100; BMI 45.3
--- NOTE | ~2019-12-13 | CT_ITS ---
EXAMINATION: CTA chest PE protocol DATE: 12/15/2019 21:13 INDICATION: Shortness of breath, sepsis, elevated d-dimer TECHNIQUE: Computed tomography angiography (CTA) of the chest was performed with 100 mL Omnipaque-350 intravenous contrast timed to evaluate the pulmonary arteries. Coronal maximum intensity projection 3D-reconstructions were created by the technologist. The dose-length product (DLP) was 1046.01 mGy-cm . Automated exposure control and iterative reconstruction technique were employed. COMPARISON: 09/25/2019 FINDINGS: The pulmonary arteries are well-opacified. Although slightly limited by respiratory motion artifact, no pulmonary embolism is identified. There is enlargement of the main and central pulmonary arteries, consistent with pulmonary hypertension. There are small pleural effusions, right greater t bach left. Stable cardiomegaly is noted. There is mild dependent atelectasis. No pneumothorax is ident ified. There are changes of aortic valve surgery and coronary artery bypass grafting. There are no pa thologically enlarged thoracic lymph nodes. The gallbladder is surgically absent. Moderate thoracic s pondylosis is noted. IMPRESSION: 1. No pulmonary embolism, sensitivity slightly limited by motion artifact. 2. Small pleural effusions. Reviewed, dictated and finalized at location A.
--- NOTE | ~2019-12-13 | CT_ITS ---
EXAMINATION: CT pelvis wo con EXAM DATE: 12/16/2019 10:43 INDICATION: Abscess on upper buttock. TECHNIQUE: Spiral CT pelvis wo con was performed without contrast. Axial, coronal and sagittal imag es were reviewed. The dose-length product (DLP) for this examination was 1196.10 mGy-cm. The exposu re was tailored according to patient size (auto mA exposure control), and iterative reconstruction (A SIR) was used as additional dose reduction technique. There is no prior study for comparison. FINDINGS: Contrast within the renal collecting system from prior intravenous injection. There is mariano ration and phlegmon along the inner aspect of the left buttocks. No organized fluid collection identi fied. The uterus is not identified and has likely been surgically resected. No pelvic lymphadenopathy . Small suprapubic fat-containing hernias along the anterior abdominal wall. There is mild scattered colonic diverticulosis. There is no adjacent inflammatory change to suggest diverticulitis. IMPRESSION: 1. Left buttock phlegmon, induration without discrete organized abscess. 2. Mild scattered colonic diverticulosis. 3. Fat-containing lower abdominal wall hernias. Reviewed, dictated and finalized at location B.
--- NOTE | ~2019-12-13 | XR_ITS ---
XR chest 1V portable 12/15/2019 09:22 Indication: Elevated white blood cell count. Chest pain. Shortness of breath with exertion. Procedure: AP portable chest Comparison: Comparison to multiple prior studies sequentially, with oldest reviewed study dated 01/2020. Findings: Status post median sternotomy for CABG. Cardiomegaly. No focal air space disease, pulmonary edema, pleural effusion or suspected pneumothorax. No acute osseous abnormality. Impression: 1: No acute cardiopulmonary disease. 2: Cardiomegaly. Reviewed, dictated and finalized at location A. Impression: 1: No acute cardiopulmonary disease. 2: Cardiomegaly.
--- NOTE | ~2019-12-13 | XR_ITS ---
EXAMINATION: XR chest 2V EXAM DATE: 12/13/2019 07:18 INDICATION: Shortness of breath. Fever. Dyspnea. TECHNIQUE: Frontal and lateral projections of the chest obtained and reviewed. Comparison is made to prior examination from 11/20/2019. FINDINGS: Sternotomy wires are present without findings to suggest sternal dehiscence. The lungs are clear. There are no pleural effusions. Cardiomediastinal silhouette is normal. There is no pneumot horax suspected. There are mild bony degenerative changes. IMPRESSION: No acute cardiopulmonary findings. Reviewed, dictated and finalized at location A.
--- NOTE | 2019-12-13 05:37 | ED.FEVER ---
HPI - Fever General Chief Complaint: Fever Stated Complaint: Body aches Time Seen by Provider: 12/13/19 05:46 Source: patient Mode of arrival: ambulatory Limitations: no limitations History of Present Illness HPI Narrative: 69-year-old woman comes to the ER today complaining of fever that started yesterday. She is also having body aches and fatigue. She states she has mild shortness of breath, and headache. She had 1 episode of diarrhea today. She denies cough, sore throat, nasal congestion, dysuria, hematuria, blood in her stools, vomiting, and rash. She denies any recent travel. She states that her teenage grandson who lives with her had 4 days of diarrhea in the 7 days. MD elicited complaint: fever and malaise Onset (ago): day(s) (1) Context: sick contacts Exacerbating factors: nothing Relieving factors: nothing Associated symptoms: myalgias, headache, shortness of breath and diarrhea Treatments prior to arrival fever: acetaminophen Related Data Home Medications Medication Instructions Recorded Confirmed atorvastatin 80 mg PO DAILY 09/07/19 12/17/19 gabapentin 100 mg capsule 100 mg PO BID 10/10/19 12/17/19 amlodipine 10 mg PO DAILY 12/13/19 12/17/19 clonidine HCl 0.2 mg PO DAILY 12/13/19 12/17/19 potassium chloride 10 meq PO DAILY 12/17/19 12/17/19 Allergies Allergy/AdvReac Type Severity Reaction Status Date / Time methylprednisolone AdvReac Agitated Verified 11/28/19 07:58 [From Solu-Medrol] prochlorperazine AdvReac Unknown Verified 11/28/19 07:58 [From Compazine] Review of Systems Constitutional: Constitutional: Denies chills, Reports fatigue and Reports fever(s) Eyes: Eyes: Denies change in vision and Denies photophobia ENT: Denies dysphagia, Denies nasal congestion and Denies sore throat Cardiovascular: Cardiovascular: Denies chest pain and Denies radiating jaw, neck or arm pain Respiratory: Respiratory: Denies chest congestion, Denies cough, Reports dyspnea and Denies wheezing Gastrointestinal: Gastrointestinal: Reports abdominal pain, Reports diarrhea, Reports nausea and Denies vomiting Musculoskeletal: Musculoskeletal: Reports myalgias, Denies arthralgias and Denies joint swelling Integumentary/Breasts: Skin/Breast: Denies pruritus, Denies erythema and Denies rash Neurologic: Denies confusion, Denies vertigo, Denies dizziness, Denies syncope, Reports headache(s), Denies focal weakness and Denies numbness Endocrine: Endocrine: Denies polydipsia and Denies polyuria Hematologic/Lymphatic: Hematologic/Lymphatic: Denies easy bleeding and Denies easy bruising Allergic/Immunologic: Allergic/Immunologic: Denies lip swelling and Denies wheezing PMFSH Past Medical History Medical History Aortic valve sclerosis Asthma Atrial flutter COPD (chronic obstructive pulmonary disease) CVA (cerebral vascular accident) GERD (gastroesophageal reflux disease) Hypercholesteremia Hypertension Morbid obesity with BMI of 45.0-49.9, adult Surgical History Surgical History H/O section H/O foot surgery Bilateral H/O: hysterectomy History of appendectomy History of cholecystectomy History of knee replacement, total Bilateral Hx of CABG Social History Social History Smoking status: Never smoker Second hand tobacco smoke exposure: Yes Alcohol intake: unknown Drinks per week: 1 Substance use: never Substance use type: does not use Living arrangements: with family Additional living arrangements comments: The patient lives with her daughter granddaughter and various other family members. She has been for 8 years. 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 Gender identity (if verbalized by the patient): Female Sexual Orientation (if Ve
--- NOTE | 2019-12-13 05:52 | ECG_ITS ---
Measurements Intervals [place] Rate: 85 P: 54 VA: 168 QRS: 88 QRSD: 109 T: 45 QT: 367 QTc: 438 Interpretive Statements SINUS RHYTHM VENTRICULAR PREMATURE COMPLEX INCOMPLETE RIGHT BUNDLE BRANCH BLOCK CONSIDER INFERIOR INFARCT, AGE INDETERMINATE BASELINE ARTIFACT- I, II, III, AVR ABNORMAL ECG Electronically Signed On 12-14-2019 17:20:50 CDT by Hiren Mccloud D.O.
[2019-12-13 06:21] LABS: Hematocrit 34.6 % (35.0-42.0); Hemoglobin 10.7 g/dL (11.7-13.8); Mean Corpuscular HGB Conc 30.9 g/dL (32.0-36.0); Mean Corpuscular Hemoglobin 28.9 pg (27.0-31.0); Mean Corpuscular Volume 93.5 fL (78.0-102.0); Mean Platelet Volume 10.7 fl (9.2-11.8); Platelet Count Result 162 K/mm3 (150-420); Red Cell Distribution Width 15.5 % (11.6-14.4); White Blood Count 11.3 K/mm3 (4.8-10.8)
[2019-12-13] MEDS: ACETAMINOPHEN 500 MG TABLET 1000 MG PO (06:24)
[2019-12-13 06:31] LABS: INR 1.1; Partial Thromboplastin Time 28.7 SEC (22.3-31.6); Prothrombin Time 11.4 Seconds (9.64-11.0)
[2019-12-13 06:36] LABS: Influenza Control Valid (Valid)
[2019-12-13 06:38] LABS: Lactic Acid Reflex 1.7 mmol/L (0.4-2.0)
[2019-12-13 06:42] LABS: Alanine Aminotransferase 17 U/L (14-59); Albumin Level 3.4 g/dL (3.4-5.0); Alkaline Phosphatase 87 U/L (46-116); Anion Gap 10.4 mmol/L (7-16); Aspartate Amino Transferase 17 U/L (15-37); Bilirubin,Total 1.7 mg/dL (0.00-1.00); Blood Urea Nitrogen 15 mg/dL (7-18); Calcium 8.1 mg/dL (8.5-10.1); Carbon Dioxide 32 mmol/L (21-32); Chloride 101 mmol/L (98-108); Estimated CRCL calculation 84 ml/min; Estimated Glomerular Filt Rate 52; Glucose 127 mg/dL (70-99); Lipase 165 U/L (73-393); Osmolality Calculated 292 mOsm/kg (285-295); Potassium 3.4 mmol/L (3.5-5.1); Sodium 140 mmol/L (136-145); Total Cells Counted 100; Total Protein 7.5 g/dL (6.4-8.2)
[2019-12-13 06:43] LABS: Band Neutrophils Percent 0 % (0-6); Basophils Percent Manual 0 % (0-1); Eosinophils Percent Manual 0 % (1-6); Lymphocytes Absolute Manual 2.03 K/mm3 (1.1-4.5); Lymphocytes Percent Manual 18 % (18-44); Monocytes Absolute Manual 1.69 K/mm3 (0.1-0.90); Monocytes Percent Manual 15 % (3-9); Neutrophils Absolute Manual 7.57 K/mm3 (1.7-7.2); Neutrophils Percent Manual 67 % (46-73); Platelet Estimate Adequate (Adequate); Troponin I < 0.02 ng/mL (0.00-0.056)
[2019-12-13 06:48] LABS: CRP 12.1 mg/dL (0.0-0.9)
[2019-12-13 07:03] LABS: Appearance Urine Clear (Clear); Bilirubin Urine Negative (Negative); Color Urine Yellow (Yellow); Glucose Urine UA Negative (Negative); Ketones Urine Trace (Negative); Leukocyte Esterase Ur Negative LEU/UL (Negative); Nitrate Urine Negative (Negative); Protein Urine Trace (Negative); Specific Grav Ur 1.025 (1.010-1.020); pH Urine 5.5 (5.0-8.0)
[2019-12-13 07:20] LABS: Add Urine Microscopic? YES; Bacteria Urine Trace /hpf; Blood Urine Trace-Intact (Negative); RBC Urine 0-2 /hpf (0-2); Squamous Epithelial Cell Urine Moderate /hpf (Few); WBC Urine 0-3 /hpf (0-3)
[2019-12-13] MEDS: SODIUM CHLORIDE 0.9% IV 1,000 ML 999 ML IV CONT ×2 (07:45→11:00)
[2019-12-13] MEDS: KETOROLAC 15 MG/ML VIAL (*BKC) IV PUSH ×2 (08:19→18:53)
--- NOTE | 2019-12-13 08:45 | PC.NURSE ---
Patient admitted to floor from ED. In bed resting. Oriented to room, call light in reach
--- NOTE | 2019-12-13 09:36 | PM.IMHP ---
H&P: HPI History of Present Illness Chief complaint: Body aches <LAURIE Alonzo - Last Filed: 12/13/19 11:13> Narrative: Padmini Monreal is a 69 year old female that presented to the ED today complaining of body aches, mild shortness of breath, headache and fever. Patient has a past medical history aortic valve stenosis, CVA, GERD cap, hypertension, morbidly obese, hypercholesteremia. it is documented that patient has a past medical history of COPD and asthma patient denies this. she does have a prescription for albuterol.according to patient yesterday morning she woke up with body aches, shortness of breath, chills, fatigue, she did have 1 episode diarrhea. Patient also notes that her grandson has been sick for a couple of days with diarrhea. She did take Tylenol at home with no relief. patient also noted that while she was going to get a chest x-ray she felt a little chest tightness. I will check her troponin. Patient's vital signs are 110/58, 90, 18, 96 % on room air and in the ER she did have a temperature of 102?. patient is being tested for COVID-19 and currently on isolation she was also given fluids in the ED her chest x-ray was unremarkable her potassium was slightly low supplement given her white count 11.3, her CRP 12.1 in her EKG is pending. Patient was currently admitted here on 11/21/2019 for uncompensated congestive heart failure she was discharged on Bumex per provider. She is being admitted to rule out COVID-19 .generalized weakness body aches and chest tightness. <LAURIE Alonzo - Last Filed: 12/13/19 11:13> Review of Systems Review of Systems: Narrative: CONSTITUTIONAL : Patient complains of generalized weakness ,fatigue and chills HEENT: Eyes: patient complains of runny noseNo diplopia or blurred vision. ENT: No earache, sore throat CARDIOVASCULAR: patient reports of chest tightness that does not radiate RESPIRATORY: patient complains of shortness of breath No cough, PND or orthopnea. GASTROINTESTINAL: patient had 1 episode of diarrhea No nausea, vomiting GENITOURINARY: No dysuria, frequency or urgency. MUSCULOSKELETAL: general body aches SKIN: No change in skin, hair or nails. NEUROLOGIC: No paresthesias, fasciculations, seizures or weakness. PSYCHIATRIC: No disorder of thought or mood. ENDOCRINE: No heat or cold intolerance, polyuria or polydipsia. HEMATOLOGICAL: No easy bruising or bleeding. <LAURIE Alonzo - Last Filed: 12/13/19 11:13> [facility] Past Medical History Medical History: Medical History Aortic valve sclerosis Asthma Atrial flutter COPD (chronic obstructive pulmonary disease) CVA (cerebral vascular accident) GERD (gastroesophageal reflux disease) Hypercholesteremia Hypertension Morbid obesity with BMI of 45.0-49.9, adult <LAURIE Alonzo - Last Filed: 12/13/19 11:13> Surgical History Surgical History: Surgical History H/O section H/O foot surgery Bilateral H/O: hysterectomy History of appendectomy History of cholecystectomy History of knee replacement, total Bilateral Hx of CABG <LAURIE Alonzo - Last Filed: 12/13/19 11:13> Social History Social History: Social History Smoking status: Never smoker Second hand tobacco smoke exposure: Yes Alcohol intake: former Drinks per week: 1 Substance use: never Substance use type: does not use Gender identity (if verbalized by the patient): Female Spiritual care concerns: No Agree to blood products: Yes <LAURIE Alonzo - Last Filed: 12/13/19 11:13> Meds Home Medications and Allergies Home medications: Home Medications Medication Instructions Recorded Confirmed Type atorvastatin 80 mg PO DAILY 09/07/19 12/13/19 History pramipexole 1 mg PO TID
[2019-12-13] MEDS: ATORVASTATIN 40 MG TABLET 80 MG PO (10:33)
[2019-12-13] MEDS: DULOXETINE HCL 30 MG CAPSULE.DR 60 MG PO (10:33)
[2019-12-13 10:34] LABS: BNP 170 pg/mL (0-100)
[2019-12-13] MEDS: ASPIRIN 81 MG ENTERIC TABLET PO (10:34)
[2019-12-13] MEDS: POTASSIUM CHLORIDE 10 MEQ TABLET 40 MEQ BY MOUTH (10:34)
[2019-12-13] MEDS: APIXABAN 2.5 MG TABLET 5 MG PO ×2 (10:34→20:54)
[2019-12-13] MEDS: GABAPENTIN 100 MG CAPSULE PO ×2 (10:34→16:50)
[2019-12-13] MEDS: PANTOPRAZOLE 40 MG TABLET PO ×2 (10:34→20:54)
[2019-12-13] MEDS: FLUTICASONE PROP 110 MCG INHALER 12 GM (*SP) 1 PUFF INHALATION ×2 (10:35→20:55)
[2019-12-13 12:28] LABS: Troponin I < 0.02 ng/mL (0.00-0.056)
[2019-12-13] MEDS: PRAMIPEXOLE 0.25 MG TABLET 1 MG PO ×3 (13:28→16:50)
[2019-12-13] MEDS: hydrOXYzine pamoate 25 MG CAPSULE PO (23:28)
[2019-12-14] MEDS: KETOROLAC 15 MG/ML VIAL (*BKC) IV PUSH ×2 (01:56→16:49)
[2019-12-14 03:49] VITALS: BP 123/46; PULSE 94; RESP 20; TEMP 36.4; O2SAT 94
[2019-12-14 06:00] LABS: Hematocrit 31.6 % (35.0-42.0); Hemoglobin 9.4 g/dL (11.7-13.8); Immature Platelet Fraction Pct 3.6 % (1.0-7.0); Mean Corpuscular HGB Conc 29.7 g/dL (32.0-36.0); Mean Corpuscular Hemoglobin 28.2 pg (27.0-31.0); Mean Corpuscular Volume 94.9 fL (78.0-102.0); Mean Platelet Volume 11.3 fl (9.2-11.8); Platelet Count Result 136 K/mm3 (150-420); Red Blood Count 3.33 M/mm3 (4.20-5.40); Red Cell Distribution Width 15.5 % (11.6-14.4); White Blood Count 13.1 K/mm3 (4.8-10.8)
[2019-12-14 06:12] LABS: Alanine Aminotransferase 16 U/L (14-59); Albumin Level 2.9 g/dL (3.4-5.0); Alkaline Phosphatase 77 U/L (46-116); Anion Gap 8.8 mmol/L (7-16); Aspartate Amino Transferase 17 U/L (15-37); Blood Urea Nitrogen 16 mg/dL (7-18); Calcium 7.7 mg/dL (8.5-10.1); Carbon Dioxide 28 mmol/L (21-32); Chloride 106 mmol/L (98-108); Estimated CRCL calculation 66 ml/min; Estimated Glomerular Filt Rate > 60; Glucose 107 mg/dL (70-99); Osmolality Calculated 289 mOsm/kg (285-295); Potassium 3.8 mmol/L (3.5-5.1); Sodium 139 mmol/L (136-145)
[2019-12-14 06:18] LABS: BNP 293 pg/mL (0-100)
[2019-12-14 06:20] LABS: CRP 15.3 mg/dL (0.0-0.9)
[2019-12-14 08:00] VITALS: BP 135/63; PULSE 104; PULSE 106; RESP 24; TEMP 37.2; O2SAT 92
[2019-12-14] MEDS: PRAMIPEXOLE 0.25 MG TABLET 1 MG PO ×3 (09:30→16:50)
[2019-12-14] MEDS: POTASSIUM CHLORIDE 10 MEQ TABLET 40 MEQ BY MOUTH (09:30)
[2019-12-14] MEDS: ASPIRIN 81 MG ENTERIC TABLET PO (09:30)
[2019-12-14] MEDS: APIXABAN 2.5 MG TABLET 5 MG PO ×2 (09:30→21:46)
[2019-12-14] MEDS: GABAPENTIN 100 MG CAPSULE PO ×2 (09:30→16:50)
[2019-12-14] MEDS: DULOXETINE HCL 30 MG CAPSULE.DR 60 MG PO (09:30)
[2019-12-14] MEDS: FLUTICASONE PROP 110 MCG INHALER 12 GM (*SP) 1 PUFF INHALATION ×2 (09:31→21:47)
[2019-12-14] MEDS: ATORVASTATIN 40 MG TABLET 80 MG PO (09:31)
[2019-12-14] MEDS: PANTOPRAZOLE 40 MG TABLET PO ×2 (09:31→21:46)
--- NOTE | 2019-12-14 11:25 | P.PN_ITS ---
Progress Note: A&P Assessment and Plan (1) Aortic valve sclerosis: Code(s): I35.8 - Other nonrheumatic aortic valve disorders Status: Acute Assessment and Plan: * stable * follow-up primary care physician and or senior operations manager (2) Anxiety with depression: Code(s): F41.8 - Other specified anxiety disorders Status: Acute Assessment and Plan: * started hydroxyzine pamoate (3) Hypertension: Code(s): I10 - Essential (primary) hypertension Status: Acute Assessment and Plan: * blood pressure 110/58 * amlodipine , and clonidine on hold * will resume when appropriate * continue vital signs is ordered (4) Hypercholesteremia: Code(s): E78.00 - Pure hypercholesterolemia, unspecified Status: Acute Assessment and Plan: * continue atorvastatin (5) CVA (cerebral vascular accident): Code(s): I63.9 - Cerebral infarction, unspecified Status: Acute Assessment and Plan: * stable no residual (6) GERD (gastroesophageal reflux disease): Code(s): K21.9 - Gastro-esophageal reflux disease without esophagitis Status: Acute Assessment and Plan: * started Protonix (7) Severe obesity (BMI >= 40): Code(s): E66.01 - Morbid (severe) obesity due to excess calories Status: Acute Assessment and Plan: * educated on healthy lifestyle (8) Congestive heart failure: Code(s): I50.9 - Heart failure, unspecified Status: Acute Assessment and Plan: * bumex on hold, will resume when appropriate * started daily weights and I&O * (9) COVID-19 ruled out: Code(s): Z03.818 - Encounter for observation for suspected exposure to other biological agents ruled out Status: Acute Assessment and Plan: * patient remains on isolation with COVID-19 pending (10) Tightness in chest: Code(s): R07.89 - Other chest pain Status: Acute Assessment and Plan: * rule out [place] * troponin negative x1 with repeat * started telemetry * continue aspirin (11) Hypokalemia: Code(s): E87.6 - Hypokalemia Status: Acute Assessment and Plan: * potassium slightly low 3.4 * supplements given * repeat in the a.m. (12) Afib: Code(s): I48.91 - Unspecified atrial fibrillation Status: Acute Assessment and Plan: * EKG pending * continue Eliquis * continue telemetry (13) DVT prophylaxis: Code(s): Z29.9 - Encounter for prophylactic measures, unspecified Status: Acute Assessment and Plan: * continue Eliquis (14) Body aches: Code(s): R52 - Pain, unspecified Status: Acute Assessment and Plan: * possibly secondary to viral infection * accompany with rhinorrhea, headache, fever, diarrhea, shortness of breath, chest tightness in fatigue * continue pain medication * monitor temperatures as ordered * continue p.r.n. breathing treatment * bolus patient with 1000 mL (15) Viral illness: Code(s): B34.9 - Viral infection, unspecified Status: Acute Assessment and Plan: * continue comfort care * continue anti emesis and pain medication * encourage patient to hydrate * patient currently afebrile continue to monitor temperature * patient denies any diarrhea today Review of Systems Review of Systems: Narrative: CONSTITUTIONAL : patient complains ofweakness or fatigue.: HEENT: Eyes: No diplo
--- NOTE | 2019-12-14 11:25 | WPDPN ---
Progress Note: A&P Assessment and Plan (1) Aortic valve sclerosis: Code(s): I35.8 - Other nonrheumatic aortic valve disorders Status: Acute Assessment and Plan: stable follow-up primary care physician and or ad taker (2) Anxiety with depression: Code(s): F41.8 - Other specified anxiety disorders Status: Acute Assessment and Plan: started hydroxyzine pamoate (3) Hypertension: Code(s): I10 - Essential (primary) hypertension Status: Acute Assessment and Plan: blood pressure 110/58 amlodipine , and clonidine on hold will resume when appropriate continue vital signs is ordered (4) Hypercholesteremia: Code(s): E78.00 - Pure hypercholesterolemia, unspecified Status: Acute Assessment and Plan: continue atorvastatin (5) CVA (cerebral vascular accident): Code(s): I63.9 - Cerebral infarction, unspecified Status: Acute Assessment and Plan: stable no residual (6) GERD (gastroesophageal reflux disease): Code(s): K21.9 - Gastro-esophageal reflux disease without esophagitis Status: Acute Assessment and Plan: started Protonix (7) Severe obesity (BMI >= 40): Code(s): E66.01 - Morbid (severe) obesity due to excess calories Status: Acute Assessment and Plan: educated on healthy lifestyle (8) Congestive heart failure: Code(s): I50.9 - Heart failure, unspecified Status: Acute Assessment and Plan: bumex on hold, will resume when appropriate started daily weights and I&O (9) COVID-19 ruled out: Code(s): Z03.818 - Encounter for observation for suspected exposure to other biological agents ruled out Status: Acute Assessment and Plan: patient remains on isolation with COVID-19 pending (10) Tightness in chest: Code(s): R07.89 - Other chest pain Status: Acute Assessment and Plan: rule out [place] troponin negative x1 with repeat started telemetry continue aspirin (11) Hypokalemia: Code(s): E87.6 - Hypokalemia Status: Acute Assessment and Plan: potassium slightly low 3.4 supplements given repeat in the a.m. (12) Afib: Code(s): I48.91 - Unspecified atrial fibrillation Status: Acute Assessment and Plan: EKG pending continue Eliquis continue telemetry (13) DVT prophylaxis: Code(s): Z29.9 - Encounter for prophylactic measures, unspecified Status: Acute Assessment and Plan: continue Eliquis (14) Body aches: Code(s): R52 - Pain, unspecified Status: Acute Assessment and Plan: possibly secondary to viral infection accompany with rhinorrhea, headache, fever, diarrhea, shortness of breath, chest tightness in fatigue continue pain medication monitor temperatures as ordered continue p.r.n. breathing treatment bolus patient with 1000 mL (15) Viral illness: Code(s): B34.9 - Viral infection, unspecified Status: Acute Assessment and Plan: continue comfort care continue anti emesis and pain medication encourage patient to hydrate patient currently afebrile continue to monitor temperature patient denies any diarrhea today Review of Systems Review of Systems: Narrative: CONSTITUTIONAL : patient complains ofweakness or fatigue.: HEENT: Eyes: No diplopia or blurred vision. ENT: No earache, sore throat or runny nose. CARDIOVASCULAR: No pressure, squeezing, strangling, tightness, heaviness or aching about the chest, neck, axilla or epigastrium. RESPIRATORY: No cough, shortness of breath, PND or orthopnea. GASTROINTESTINAL: occasional nausea, deneis vomiting or diarrhea. GENITOURINARY: No dysuria, frequency or urgency. MUSCULOSKELETAL: patient has generalized body aches SKIN: No change in skin, hair or nails. NEUROLOGIC: No paresthesias, fasciculations, seizures
[2019-12-14 12:00] VITALS: BP 132/66; PULSE 110; PULSE 112; RESP 24; TEMP 37.3; O2SAT 96
[2019-12-14] MEDS: ONDANSETRON INJ 4 MG/2 ML VIAL IV PUSH (13:50)
[2019-12-14 16:00] VITALS: BP 132/64; PULSE 102; PULSE 112; RESP 22; TEMP 37.1; O2SAT 95
[2019-12-14 20:00] VITALS: BP 123/65; PULSE 107; PULSE 93; RESP 20; TEMP 36.2; O2SAT 94
--- NOTE | 2019-12-14 20:00 | PC.NURSE ---
Patient resting in bed, no complaints at this time. sinus tach on telemetry, rate 100-107.
[2019-12-14] MEDS: hydrOXYzine pamoate 25 MG CAPSULE PO (21:46)
[2019-12-15] VITALS (9 sets, daily range): BP systolic 95–138; BP diastolic 55–72; PULSE 87–117; RESP 15–24; TEMP 36.2–37.3; O2SAT 86–99
[2019-12-15] MEDS: KETOROLAC 15 MG/ML VIAL (*BKC) IV PUSH (01:08)
--- NOTE | 2019-12-15 03:40 | PC.NURSE ---
Patient had a 23 beat run of [employer] at 0319. Custodial Maintenance Worker in to check on patient. Patient was sleeping when video game script writer entered the room. She denies any symptoms. She reports that she still has the generalized pain 5/10, but denies any change to the way the pain feels or new onset chest pain. Vital signs were obtained. Patient asking for an ensure, one was provided.
[2019-12-15] MEDS: hydrOXYzine pamoate 25 MG CAPSULE PO (05:11)
--- NOTE | 2019-12-15 05:36 | ECG_ITS ---
Measurements Intervals [place] Rate: 106 P: 53 [place]: 174 QRS: 92 QRSD: 110 T: 16 QT: 340 QTc: 453 Interpretive Statements SINUS TACHYCARDIA RIGHT AXIS DEVIATION INCOMPLETE RIGHT BUNDLE BRANCH BLOCK BORDERLINE T WAVE ABNORMALITY- INFERIOR LEADS ABNORMAL ECG Electronically Signed On 12-15-2019 7:10:10 CDT by Hiren Mccloud D.O.
--- NOTE | 2019-12-15 05:43 | PC.NURSE ---
Doctor was notified of run of on telemetry. Patient also experienced a brief episode of chest tightness on right side. EKG and troponin obtained per doctors order. doctor aware of EKG results. Waiting for troponin results.
[2019-12-15 05:49] LABS: Hematocrit 31.5 % (35.0-42.0); Hemoglobin 9.2 g/dL (11.7-13.8); Mean Corpuscular HGB Conc 29.2 g/dL (32.0-36.0); Mean Corpuscular Hemoglobin 27.6 pg (27.0-31.0); Mean Corpuscular Volume 94.6 fL (78.0-102.0); Mean Platelet Volume 11.2 fl (9.2-11.8); Platelet Count Result 135 K/mm3 (150-420); Red Blood Count 3.33 M/mm3 (4.20-5.40); Red Cell Distribution Width 15.3 % (11.6-14.4); White Blood Count 14.4 K/mm3 (4.8-10.8)
--- NOTE | 2019-12-15 05:53 | PC.NURSE ---
at approximately 0510 patient reporting mid chest pressure rated 8/10 on the pain scale. screenplay writer in to assess. she stated that the pressure came on suddenly and then started to resolve. She stated that the pressure feeling was similar to the pressure that she has been experiencing since admission. She stated that the pressure was down to a 3/10 on the pain scale before screenplay writer left the room. Vital signs were obtained. EKG was completed. SPO2 was found to be 86% on room air. Patient was started on 2 liters O2 by NC and her spot increased to 98%.
[2019-12-15 05:54] LABS: Immature Platelet Fraction Pct 3.6 % (1.0-7.0)
[2019-12-15 06:00] LABS: Alanine Aminotransferase 15 U/L (14-59); Albumin Level 2.6 g/dL (3.4-5.0); Alkaline Phosphatase 82 U/L (46-116); Anion Gap 8.8 mmol/L (7-16); Aspartate Amino Transferase 17 U/L (15-37); Bilirubin,Total 1.8 mg/dL (0.00-1.00); Blood Urea Nitrogen 17 mg/dL (7-18); Carbon Dioxide 29 mmol/L (21-32); Chloride 105 mmol/L (98-108); Estimated CRCL calculation 72 ml/min; Estimated Glomerular Filt Rate > 60; Glucose 158 mg/dL (70-99); Magnesium 1.9 mg/dL (1.8-2.4); Osmolality Calculated 292 mOsm/kg (285-295); Potassium 3.8 mmol/L (3.5-5.1); Sodium 139 mmol/L (136-145); Total Protein 5.8 g/dL (6.4-8.2)
[2019-12-15 06:09] LABS: Troponin I 0.07 ng/mL (0.00-0.056)
--- NOTE | 2019-12-15 06:11 | PC.NURSE ---
Patient trop elevated at 0.07. Dr. guerrero. Order received to report trop level in 3 hours.
--- NOTE | 2019-12-15 06:41 | P.PNCROSS_ITS ---
Event Note Event Note Event Note: Was called on patient earlier this morning patient had an episode where she had a run of SVT for [id number] and had some chest pressure. EKG was performed which showed baseline right bundle branch block with occasional premature ventricular complexes and a rate of 93. A troponin was also obtained and was elevated to 0.07. Evaluated patient currently appears more comfortable has a chest pressure that she rates it about a 3/10 with no radiation no shortness of breath no nausea or vomiting no abdominal pain no diaphoresis. Patient has a receiver stocker, Dr. Mccloud, and had an event monitor on around November 25 for AFib/a flutter. And occasional burden of SVTs. Ordered a subsequent troponin level. Again the patient was examined she is sitting at her bedside chest pressure has decreased to 3/10 and appears more comfortable and awaiting 2nd result of troponin that was ordered in 3 hours.
[2019-12-15 08:02] LABS: Troponin I 0.09 ng/mL (0.00-0.056)
[2019-12-15 09:05] LABS: CRP > 25.0 mg/dL (0.0-0.9)
[2019-12-15] MEDS: DULOXETINE HCL 30 MG CAPSULE.DR 60 MG PO (09:30)
[2019-12-15] MEDS: PANTOPRAZOLE 40 MG TABLET PO ×2 (09:30→20:36)
[2019-12-15] MEDS: PRAMIPEXOLE 0.25 MG TABLET 1 MG PO ×3 (09:30→16:48)
[2019-12-15] MEDS: GABAPENTIN 100 MG CAPSULE PO ×2 (09:31→16:48)
[2019-12-15] MEDS: ATORVASTATIN 40 MG TABLET 80 MG PO (09:31)
[2019-12-15] MEDS: APIXABAN 2.5 MG TABLET 5 MG PO ×2 (09:31→20:35)
[2019-12-15] MEDS: ASPIRIN 81 MG ENTERIC TABLET PO (09:31)
[2019-12-15] MEDS: POTASSIUM CHLORIDE 10 MEQ TABLET 40 MEQ BY MOUTH (09:31)
[2019-12-15] MEDS: FLUTICASONE PROP 110 MCG INHALER 12 GM (*SP) 1 PUFF INHALATION ×2 (09:35→20:35)
[2019-12-15 11:19] LABS: D Dimer 1.09 mg/L (0.19-0.50)
[2019-12-15 11:32] LABS: BNP 708 pg/mL (0-100)
--- NOTE | 2019-12-15 13:43 | P.PN_ITS ---
Progress Note: A&P Assessment and Plan (1) Aortic valve sclerosis: Code(s): I35.8 - Other nonrheumatic aortic valve disorders <Javier MartinezNESTOR Perez-C - Last Filed: 12/15/19 14:00> Status: Acute <Javier HernandezNESTOR-C - Last Filed: 12/15/19 14:00> Assessment and Plan: * stable * follow-up primary care physician and or head trimmer DR. ODMINGUEZ <Javier MartinezNESTOR Perez-C - Last Filed: 12/15/19 14:00> (2) Anxiety with depression: Code(s): F41.8 - Other specified anxiety disorders <Javier MartinezNESTOR Perez-C - Last Filed: 12/15/19 14:00> Status: Acute <Adriakenenth MichelleMaciej DavidNESTOR-C - Last Filed: 12/15/19 14:00> Assessment and Plan: * CONTINUE hydroxyzine pamoate <NESTOR Alonzo-C - Last Filed: 12/15/19 14:00> (3) Hypertension: Code(s): I10 - Essential (primary) hypertension <Javier Dorado NESTOR Hernandez-C - Last Filed: 12/15/19 14:00> Status: Acute <Javier HernandezNESTOR-C - Last Filed: 12/15/19 14:00> Assessment and Plan: * blood pressure SOFT * amlodipine , and clonidine on hold * will resume when appropriate * continue vital signs is ordered <LAURIE Alonzo - Last Filed: 12/15/19 14:00> (4) Hypercholesteremia: Code(s): E78.00 - Pure hypercholesterolemia, unspecified <Javier MartinezNESTOR Perez-C - Last Filed: 12/15/19 14:00> Status: Acute <Javier MichelleNESTOR Perez-C - Last Filed: 12/15/19 14:00> Assessment and Plan: * continue atorvastatin <NESTOR Alonzo-C - Last Filed: 12/15/19 14:00> (5) CVA (cerebral vascular accident): Code(s): I63.9 - Cerebral infarction, unspecified <LAKE AlonzoP-C - Last Filed: 12/15/19 14:00> Status: Acute <NESTOR Alonzo-C - Last Filed: 12/15/19 14:00> Assessment and Plan: * stable no residual <NESTOR Alonzo-C - Last Filed: 12/15/19 14:00> (6) GERD (gastroesophageal reflux disease): Code(s): K21.9 - Gastro-esophageal reflux disease without esophagitis <Javier Hernandez NESTOR-C - Last Filed: 12/15/19 14:00> Status: Acute <Javier Hernandez NESTOR-C - Last Filed: 12/15/19 14:00> Assessment and Plan: * CONTINUE Protonix <Javier Hernandez NESTOR-C - Last Filed: 12/15/19 14:00> (7) Severe obesity (BMI >= 40): Code(s): E66.01 - Morbid (severe) obesity due to excess calories <Javier Hernandez NESTOR-C - Last Filed: 12/15/19 14:00> Status: Acute <Javier Hernandez NESTOR-C - Last Filed: 12/15/19 14:00> Assessment and Plan: * educated on healthy lifestyle <Javier Hernandez NESTOR-C - Last Filed: 12/15/19 14:00> (8) Congestive heart failure: Code(s): I50.9 - Heart failure, unspecified <Javeir Hernandez NESTOR-C - Last Filed: 12/15/19 14:00> Status: Acute <Javier Hernandez NESTOR-C - Last Filed: 12/15/19 14:00> Assessment and Plan: * bumex on hold, will resume when appropriate * started daily weights and I&O * <Javier Hernandez NESTOR-C - Last Filed: 12/15/19 14:00> (9) COVID-19 ruled out: Code(s): Z03.818 - Encounter for observation for suspected exposure to other biological agents ruled out <Javier Hernandez PICKLE WATER PUMP OPERATOR-C - Last Filed: 12/15/19 14:00> Status: Acute <LAURIE Alonzo - Last Filed: 12/15/19 14:00> Assessment and Plan: * patient remains on isolation with COVID-19 pending <LAURIE Alonzo - Last Filed: 12/15/19 14:00> (10) Tightness in chest: Code(s): R07.89 -
--- NOTE | 2019-12-15 13:43 | WPDPN ---
Progress Note: A&P Assessment and Plan (1) Aortic valve sclerosis: Code(s): I35.8 - Other nonrheumatic aortic valve disorders <Javier MartinezMaciej DavidNESTOR-C - Last Filed: 12/15/19 14:00> Status: Acute <Javier HernandezNESTOR-C - Last Filed: 12/15/19 14:00> Assessment and Plan: stable follow-up primary care physician and or portal architect DR. DOMINGUEZ <Javier MartinezNESTOR Perez-C - Last Filed: 12/15/19 14:00> (2) Anxiety with depression: Code(s): F41.8 - Other specified anxiety disorders <Javier MartinezNESTOR Perez-C - Last Filed: 12/15/19 14:00> Status: Acute <Javier MartinezMaciej DavidNESTOR-C - Last Filed: 12/15/19 14:00> Assessment and Plan: CONTINUE hydroxyzine pamoate <AdriaNESTOR Valero-C - Last Filed: 12/15/19 14:00> (3) Hypertension: Code(s): I10 - Essential (primary) hypertension <Javier MartinezNESTOR Perez-C - Last Filed: 12/15/19 14:00> Status: Acute <Javier MartinezMaciej DavidNESTOR-C - Last Filed: 12/15/19 14:00> Assessment and Plan: blood pressure SOFT amlodipine , and clonidine on hold will resume when appropriate continue vital signs is ordered <NESTOR Alonzo-C - Last Filed: 12/15/19 14:00> (4) Hypercholesteremia: Code(s): E78.00 - Pure hypercholesterolemia, unspecified <Javier MartinezNESTOR Perez-C - Last Filed: 12/15/19 14:00> Status: Acute <Javier MichelleNESTOR Perez-C - Last Filed: 12/15/19 14:00> Assessment and Plan: continue atorvastatin <NESTOR Alonzo-C - Last Filed: 12/15/19 14:00> (5) CVA (cerebral vascular accident): Code(s): I63.9 - Cerebral infarction, unspecified <NESTOR Alonzo-C - Last Filed: 12/15/19 14:00> Status: Acute <Javier Hernandez HOTEL FRONT DESK CLERK-C - Last Filed: 12/15/19 14:00> Assessment and Plan: stable no residual <Javier Hernandez HOTEL FRONT DESK CLERK-C - Last Filed: 12/15/19 14:00> (6) GERD (gastroesophageal reflux disease): Code(s): K21.9 - Gastro-esophageal reflux disease without esophagitis <Javier Hernandez HOTEL FRONT DESK CLERK-C - Last Filed: 12/15/19 14:00> Status: Acute <Javier Hernandez HOTEL FRONT DESK CLERK-C - Last Filed: 12/15/19 14:00> Assessment and Plan: CONTINUE Protonix <Javier Hernandez HOTEL FRONT DESK CLERK-C - Last Filed: 12/15/19 14:00> (7) Severe obesity (BMI >= 40): Code(s): E66.01 - Morbid (severe) obesity due to excess calories <Javier Dorado David HOTEL FRONT DESK CLERK-C - Last Filed: 12/15/19 14:00> Status: Acute <Javier Hernandez HOTEL FRONT DESK CLERK-C - Last Filed: 12/15/19 14:00> Assessment and Plan: educated on healthy lifestyle <Javier Hernandez HOTEL FRONT DESK CLERK-C - Last Filed: 12/15/19 14:00> (8) Congestive heart failure: Code(s): I50.9 - Heart failure, unspecified <Javier MartinezMaciej David HOTEL FRONT DESK CLERK-C - Last Filed: 12/15/19 14:00> Status: Acute <Javier Hernandez HOTEL FRONT DESK CLERK-C - Last Filed: 12/15/19 14:00> Assessment and Plan: bumex on hold, will resume when appropriate started daily weights and I&O <Adriakenneth MichelleNESTOR Perez-C - Last Filed: 12/15/19 14:00> (9) COVID-19 ruled out: Code(s): Z03.818 - Encounter for observation for suspected exposure to other biological agents ruled out <NESTOR Alonzo-C - Last Filed: 12/15/19 14:00> Status: Acute <Javier MichelleMaciej Hernandez HOTEL FRONT DESK CLERK-C - Last Filed: 12/15/19 14:00> Assessment and Plan: patient remains on isolation with COVID-19 pending <LAURIE Alonzo - Last Filed: 12/15/19 14:00> (10) Tightness in chest: Code(s): R07.89 - Other chest pain <LAURIE Alonzo - Last Filed: 12/15/19 14:00> Status: Acute <LAURIE Alonzo - Last Filed: 12/15/19 14:00> Assessment and Plan: POSSIBLY SECONDARY [place] VERSUS PE VERSUS COPD EXCERBATION ACCORDING TO NURSE PATIENT HAD A RUN SVT APPROXIMATELY 23 SECONDS WITH A HEART 160 EKG INDICATES RIGHT BUNDLE B
[2019-12-15] MEDS: methylPREDNISolone SOD SUCC 125 MG VIAL IV PUSH (14:38)
[2019-12-15] MEDS: FUROSEMIDE 20 MG TABLET PO (14:38)
[2019-12-15 18:54] LABS: SARS-CoV-2 RNA PCR Negative
[2019-12-15 19:25] LABS: Troponin I 0.05 ng/mL (0.00-0.056)
[2019-12-16] VITALS (7 sets, daily range): BP systolic 94–122; BP diastolic 48; PULSE 69–115; RESP 20; TEMP 36.1–36.2; O2SAT 94–100
--- NOTE | 2019-12-16 02:46 | PC.NURSE ---
Pt has lg red hard area L buttock with some lt red drainage. Area cleansed with wd cleanser. 4x4 folded in hald & put in place. Findings reported to charge nurse.
--- NOTE | 2019-12-16 05:31 | PC.NURSE ---
Lab here. elemetry continues. No complaint of chest pain. No nausea, vomiting or loose stool this shift.
[2019-12-16 05:36] LABS: Hematocrit 32.6 % (35.0-42.0); Hemoglobin 9.9 g/dL (11.7-13.8); Mean Corpuscular HGB Conc 30.4 g/dL (32.0-36.0); Mean Corpuscular Hemoglobin 28.9 pg (27.0-31.0); Mean Corpuscular Volume 95.3 fL (78.0-102.0); Mean Platelet Volume 10.7 fl (9.2-11.8); Platelet Count Result 150 K/mm3 (150-420); Red Blood Count 3.42 M/mm3 (4.20-5.40); White Blood Count 14.7 K/mm3 (4.8-10.8)
[2019-12-16 05:54] LABS: Alanine Aminotransferase 18 U/L (14-59); Albumin Level 2.6 g/dL (3.4-5.0); Alkaline Phosphatase 98 U/L (46-116); Anion Gap 9.7 mmol/L (7-16); Aspartate Amino Transferase 17 U/L (15-37); Bilirubin,Total 0.9 mg/dL (0.00-1.00); Blood Urea Nitrogen 18 mg/dL (7-18); Calcium 8.5 mg/dL (8.5-10.1); Carbon Dioxide 30 mmol/L (21-32); Chloride 104 mmol/L (98-108); Estimated CRCL calculation 63 ml/min; Estimated Glomerular Filt Rate 59; Glucose 197 mg/dL (70-99); Magnesium 1.9 mg/dL (1.8-2.4); Osmolality Calculated 294 mOsm/kg (285-295); Potassium 4.7 mmol/L (3.5-5.1); Sodium 139 mmol/L (136-145)
[2019-12-16 06:11] LABS: CRP > 25.0 mg/dL (0.0-0.9)
[2019-12-16] MEDS: KETOROLAC 15 MG/ML VIAL (*BKC) IV PUSH (07:42)
[2019-12-16 08:43] LABS: BNP 621 pg/mL (0-100)
[2019-12-16] MEDS: BUMETANIDE 1 MG TABLET 2 MG PO (09:08)
[2019-12-16] MEDS: FLUTICASONE PROP 110 MCG INHALER 12 GM (*SP) 1 PUFF INHALATION (09:08)
[2019-12-16] MEDS: PRAMIPEXOLE 0.25 MG TABLET 1 MG PO (09:08)
[2019-12-16] MEDS: ASPIRIN 81 MG ENTERIC TABLET PO (09:09)
[2019-12-16] MEDS: DULOXETINE HCL 30 MG CAPSULE.DR 60 MG PO (09:09)
[2019-12-16] MEDS: POTASSIUM CHLORIDE 10 MEQ TABLET 40 MEQ BY MOUTH (09:09)
[2019-12-16] MEDS: APIXABAN 2.5 MG TABLET 5 MG PO (09:10)
[2019-12-16] MEDS: GABAPENTIN 100 MG CAPSULE PO (09:10)
[2019-12-16] MEDS: PANTOPRAZOLE 40 MG TABLET PO (09:10)
[2019-12-16] MEDS: ATORVASTATIN 40 MG TABLET 80 MG PO (09:10)
--- NOTE | 2019-12-16 10:21 | PC.NURSE ---
Patient transported off of floor, via wheelchair for buttock CT
--- NOTE | 2019-12-16 10:28 | PC.NURSE ---
Patient transported back to floor, via wheelchair
--- NOTE | 2019-12-16 10:39 | HOMEO2EVAL ---
Home Oxygen Evaluation RC: Home Oxygen (O2) Evaluation Start: 12/16/19 09:50 Freq: ONCE Status: Active Protocol: RPE Activity Type Activity Date Activity User E-Sign Co-Sign Detail Recorded Client Recorded Date Recorded By Document 12/16/19 10:08 GEORGINA [id number] 12/16/19 10:39 GEORGINA Document 12/16/19 10:10 GEORGINA [id number] 12/16/19 10:39 GEORGINA 12/16/19 12/16/19 10:08 10:10 Home O2 Evaluation Test Phase Resting Exercise Oxygen Delivery Room Air Room Air Pulse Oximetry (90-100 %) 95 94 Pulse Rate (60-100 beats/min) 84 115 H Activity Tolerance Excellent Rating of Perceived Dyspnea (PD) +2 Mild, Some +3 Moderate Difficulty, Difficulty, But Noticeable to Can Continue the Observer Rate of Perceived Exertion (PE) 9 Very light 11 Fairly light Ambulation Distance (feet) 600 Home Oxygen Evaluation Comments patient walked, on room air, pushing wheelchair for balance, with no rest stops. encouraged PLB. walks with short quick steps. Sp02 > 93% during exercise with HR from 84-115. Treatment Charges O2 Evaluation
--- NOTE | 2019-12-16 12:23 | P.DS_ITS ---
DS: Admitting Diagnosis Admitting Diagnosis Admitting Diagnosis: Other nonrheumatic aortic valve disorders DS: Discharge Diagnosis Discharge Diagnosis (1) Aortic valve sclerosis: Code(s): I35.8 - Other nonrheumatic aortic valve disorders Status: Acute Assessment and Plan: * stable * follow-up primary care physician and or hypercil core transformer assembler DR. DOMINGUEZ (2) Anxiety with depression: Code(s): F41.8 - Other specified anxiety disorders Status: Acute Assessment and Plan: * CONTINUE Xanax (3) Hypertension: Code(s): I10 - Essential (primary) hypertension Status: Acute Assessment and Plan: * stable * continue amlodipine , and clonidine * will resume when appropriate * continue vital signs is ordered (4) Hypercholesteremia: Code(s): E78.00 - Pure hypercholesterolemia, unspecified Status: Acute Assessment and Plan: * continue atorvastatin (5) CVA (cerebral vascular accident): Code(s): I63.9 - Cerebral infarction, unspecified Status: Acute Assessment and Plan: * stable no residual (6) GERD (gastroesophageal reflux disease): Code(s): K21.9 - Gastro-esophageal reflux disease without esophagitis Status: Acute Assessment and Plan: * CONTINUE home medication (7) Severe obesity (BMI >= 40): Code(s): E66.01 - Morbid (severe) obesity due to excess calories Status: Acute Assessment and Plan: * educated on healthy lifestyle (8) Congestive heart failure: Code(s): I50.9 - Heart failure, unspecified Status: Acute Assessment and Plan: continue Bumex * (9) COVID-19 ruled out: Code(s): Z03.818 - Encounter for observation for suspected exposure to other biological agents ruled out Status: Acute Assessment and Plan: * patient remains on isolation with COVID-19 pending (10) Tightness in chest: Code(s): R07.89 - Other chest pain Status: Acute Assessment and Plan: * POSSIBLY SECONDARY [place] VERSUS PE VERSUS COPD EXCERBATION * not believed to be cardiac related * EKG INDICATES RIGHT BUNDLE BLOCK BRANCH WITH OCCASIONAL PVCS ARE RATE OF 93 * REPEAT TROPONIN 1 elevated troponin thereafter trended down * follow-up with hypercil core transformer assembler * continue aspirin * D-DIMER ELEVATED CTA negative for PE * CHEST X-RAY UNREMARKABLE DOES NOT INDICATE PULMONARY EDEMA (11) Hypokalemia: Code(s): E87.6 - Hypokalemia Status: Acute Assessment and Plan: * potassium within normal limits * continue supplements (12) Afib: Code(s): I48.91 - Unspecified atrial fibrillation Status: Acute Assessment and Plan: * EKG INDICATES RIGHT BUNDLE BLOCK BRANCH WITH PVCS * continue Eliquis (13) DVT prophylaxis: Code(s): Z29.9 - Encounter for prophylactic measures, unspecified Status: Acute Assessment and Plan: * continue Eliquis (14) Body aches: Code(s): R52 - Pain, unspecified Status: Acute Assessment and Plan: * possibly secondary to viral infection * accompany with rhinorrhea, headache, fever, diarrhea, shortness of breath, chest tightness in fatigue * discharged with pain medication * follow-up with primary care physician (15) Viral illness: Code(s): B34.9 - Viral infection, unspecified Status: Acute Assessment and Plan: * wbc's elevated possibly secondary to steroid use * c
--- NOTE | 2019-12-16 12:23 | PM.DS ---
DS: Admitting Diagnosis Admitting Diagnosis Admitting Diagnosis: Other nonrheumatic aortic valve disorders DS: Discharge Diagnosis Discharge Diagnosis (1) Aortic valve sclerosis: Code(s): I35.8 - Other nonrheumatic aortic valve disorders Status: Acute Assessment and Plan: stable follow-up primary care physician and or barnworker groom DR. DOMINGUEZ (2) Anxiety with depression: Code(s): F41.8 - Other specified anxiety disorders Status: Acute Assessment and Plan: CONTINUE Xanax (3) Hypertension: Code(s): I10 - Essential (primary) hypertension Status: Acute Assessment and Plan: stable continue amlodipine , and clonidine will resume when appropriate continue vital signs is ordered (4) Hypercholesteremia: Code(s): E78.00 - Pure hypercholesterolemia, unspecified Status: Acute Assessment and Plan: continue atorvastatin (5) CVA (cerebral vascular accident): Code(s): I63.9 - Cerebral infarction, unspecified Status: Acute Assessment and Plan: stable no residual (6) GERD (gastroesophageal reflux disease): Code(s): K21.9 - Gastro-esophageal reflux disease without esophagitis Status: Acute Assessment and Plan: CONTINUE home medication (7) Severe obesity (BMI >= 40): Code(s): E66.01 - Morbid (severe) obesity due to excess calories Status: Acute Assessment and Plan: educated on healthy lifestyle (8) Congestive heart failure: Code(s): I50.9 - Heart failure, unspecified Status: Acute Assessment and Plan: continue Bumex (9) COVID-19 ruled out: Code(s): Z03.818 - Encounter for observation for suspected exposure to other biological agents ruled out Status: Acute Assessment and Plan: patient remains on isolation with COVID-19 pending (10) Tightness in chest: Code(s): R07.89 - Other chest pain Status: Acute Assessment and Plan: POSSIBLY SECONDARY [place] VERSUS PE VERSUS COPD EXCERBATION not believed to be cardiac related EKG INDICATES RIGHT BUNDLE BLOCK BRANCH WITH OCCASIONAL PVCS ARE RATE OF 93 REPEAT TROPONIN 1 elevated troponin thereafter trended down follow-up with barnworker groom continue aspirin D-DIMER ELEVATED CTA negative for PE CHEST X-RAY UNREMARKABLE DOES NOT INDICATE PULMONARY EDEMA (11) Hypokalemia: Code(s): E87.6 - Hypokalemia Status: Acute Assessment and Plan: potassium within normal limits continue supplements (12) Afib: Code(s): I48.91 - Unspecified atrial fibrillation Status: Acute Assessment and Plan: EKG INDICATES RIGHT BUNDLE BLOCK BRANCH WITH PVCS continue Eliquis (13) DVT prophylaxis: Code(s): Z29.9 - Encounter for prophylactic measures, unspecified Status: Acute Assessment and Plan: continue Eliquis (14) Body aches: Code(s): R52 - Pain, unspecified Status: Acute Assessment and Plan: possibly secondary to viral infection accompany with rhinorrhea, headache, fever, diarrhea, shortness of breath, chest tightness in fatigue discharged with pain medication follow-up with primary care physician (15) Viral illness: Code(s): B34.9 - Viral infection, unspecified Status: Acute Assessment and Plan: wbc's elevated possibly secondary to steroid use continue comfort care continue anti emesis and pain medication encourage patient to hydrate patient currently afebrile continue to monitor temperature patient denies any diarrhea today (16) Abscess: Code(s): L02.91 - Cutaneous abscess, unspecified Status: Acute Assessment and Plan: CT indicatesLeft buttock phlegmon, induration without discrete organized abscess. patient discharged with clindamycin and probiotic and instructions on proper use of sitz bath woun
--- NOTE | 2019-12-16 14:45 | PM.EVENT ---
Event Note Event Note Event Note: This to the patient this morning with the nurse practitioner on morning rounds. The patient states that she is feeling better and is ready for discharge today. Patient does have and abscess over her left buttock area and that seems to be draining bloody purulent drainage. I do concur with the nurse practitioner's assessment and plan and discharge and continue the patient on the medications as discussed in discharge plans
== END 2019-12-16 12:20 | disposition home or self-care (01) | DRG 866 ==
LOC: CHSED 08:35 → CHS2ND 08:38
PROVIDERS: Emergency Medicine; Nurse Practitioner; Admitting Provider Family Medicine; Emergency Provider Family Medicine; PCP Nurse Practitioner Family; Visit Provider Family Medicine
DX: B34.9 Viral infection, unspecified (principal); I48.92 Unspecified atrial flutter; L02.91 Cutaneous abscess, unspecified; I11.0 Hypertensive heart disease with heart failure; I50.9 Heart failure, unspecified; R07.9 Chest pain, unspecified; I35.0 Nonrheumatic aortic (valve) stenosis; E87.6 Hypokalemia; K21.9 Gastro-esophageal reflux disease without esophagitis; E78.00 Pure hypercholesterolemia, unspecified; E66.01 Morbid (severe) obesity due to excess calories; Z96.653 Presence of artificial knee joint, bilateral; Z86.73 Personal history of transient ischemic attack (TIA), and cerebral infarction without residual deficits
CPT/HCPCS: 36415; 71045; 71046; 71275; 72192; 80053; 81001; 83605; 83690; 83735; 83880; 84484; 85025; 85027; 85055; 85380; 85610; 85730; 86140; 87040; 87070; 87147; 87186; 87205; 87635; 87804; 93005; 94618; 96361; 96374; 96375; 96376; 99285; A9270; C9803; G0378; J1885; J2405; J2930; J7030; Q9965; U0003

== ENCOUNTER 2019-12-17 00:21 | Inpatient (IN) | payer MEDICARE, SELFPAY ==
[2019-12-17] VITALS (53 sets, daily range): BP systolic 80–252; BP diastolic 25–99; PULSE 75–141; RESP 16–31; TEMP 37–39.4; O2SAT 94–100; BMI 45.6
--- NOTE | ~2019-12-17 | CT_ITS ---
EXAMINATION: CT abdomen pelvis w con DATE: 12/17/2019 01:29 INDICATION: Buttock cellulitis. Evaluate for abscess. TECHNIQUE: Computed tomography (CT) of the abdomen and pelvis was performed with 100 cc Omnipaque 350 intravenous contrast. The dose-length product was 1554.28 mGy-cm. Automated exposure control and ite rative reconstruction technique were employed. COMPARISON: CT dated 12/16/2019 FINDINGS: Small pleural effusions. Cardiomegaly. There is atherosclerosis. There are median sternotom y wires. Lung parenchyma unremarkable. No pericardial effusion. There are calcified granulomas in the spleen. The pancreas, adrenal glands and kidneys are unremarkab le. Small anterior abdominal wall fat-containing hernias. Colonic diverticulosis without evidence for diverticulitis. No evidence for significant vascular abnormality. No lymphadenopathy. Nonobstructive bowel gas pattern. No free air or free fluid. There are phlegmonous changes in the left buttocks flornece suring 10 x 3 cm region. No drainable abscess identified. IMPRESSION: 1. Phlegmonous changes left buttocks, consistent with cellulitis. No drainable abscess. 2: Small pleural effusions. 3: Cardiomegaly. Reviewed, dictated and finalized at location A.
--- NOTE | ~2019-12-17 | XR_ITS ---
EXAMINATION: XR chest 1V portable DATE: 12/20/2019 05:55 INDICATION: Post extubation TECHNIQUE: frontal view of the chest was obtained. COMPARISON: Chest radiograph dated 12/19/2019 FINDINGS: Endotracheal tube and nasogastric tube and remove. Unchanged right internal jugular central venous ca theter with distal tip at the right atrium. Linear and mild patchy airspace opacities in the bilateral mid and lower lung zones, left greater amanda n right. Blunting at the costophrenic angles consistent with small left and tiny right pleural effusi ons. Cardiomegaly with dense mitral annular calcification. Median sternotomy wires and mediastinal schultz rgical clips are seen, likely from prior coronary artery bypass grafting. IMPRESSION: 1. Small left and tiny right pleural effusions. 2. No significant change in the lateral airspace opacities, left greater than right which could repre sent atelectasis and/or pneumonia. 3. Cardiomegaly. Reviewed, dictated and finalized at location A. IMPRESSION: 1. Small left and tiny right pleural effusions. 2. No significant change in the lateral airspace opacities, left greater than r ight which could represent atelectasis and/or pneumonia. 3. Cardiomegaly.
--- NOTE | ~2019-12-17 | XR_ITS ---
EXAMINATION: XR chest 1V portable DATE: 12/18/2019 05:49 INDICATION: Acute respiratory failure. Septic shock. TECHNIQUE: frontal view of the chest was obtained. COMPARISON: Chest radiograph dated 12/17/2019 FINDINGS: Endotracheal tube tip 2.9 cm above the ender. Right internal jugular central venous catheter with di stal tip in the right atrium. Nasogastric tube extends below the left hemidiaphragm with distal tip collimated off the study. Patient is rotated towards the right. Opacities in the bilateral lower lung zones consistent with sma ll left and tiny right pleural effusions with associated atelectasis and/or pneumonia. No pneumothora x. Cardiomegaly. IMPRESSION: 1. Small left and tiny right pleural effusions with associated basilar atelectasis and/or pneumonia. 2. Cardiomegaly. Reviewed, dictated and finalized at location A. IMPRESSION: 1. Small left and tiny right pleural effusions with associated basilar atelecta sis and/or pneumonia. 2. Cardiomegaly.
--- NOTE | ~2019-12-17 | XR_ITS ---
EXAMINATION: XR chest ET placement, XR abdomen NG/feed tube insert DATE: 12/17/2019 10:53 INDICATION: Endotracheal tube and orogastric tube placement TECHNIQUE: 1. frontal view of the chest was obtained. 2. Frontal view of the abdomen was obtained. COMPARISON: Chest radiograph dated 12/17/2019 at 3:21 AM FINDINGS: Chest: Endotracheal tube tip in 0.2 cm above the ender. Right internal jugular central venous catheter with distal tip in the right atrium. Increased interstitial pattern in the bilateral lower lung zones. Malcolm zy opacity in the left lower lung zone with blunting of the costophrenic angle consistent related to large left paracardial fat pad but appreciated on CT. No pneumothorax or definitive pleural effusion. Cardiomegaly. Dense mitral annular calcification. Median sternotomy wires and mediastinal surgical c lips are seen, likely from prior coronary artery bypass grafting. Calcified left hilar lymph nodes co nsistent with old granulomatous disease. Abdomen: Nasogastric tube tip and proximal side port in the body of the stomach. Cholecystectomy clips at the right upper quadrant. No dilated loops of gas-filled bowel to suggest obstruction. IMPRESSION: 1. Lines and tubes in expected positions as detailed above. 2. Mild increased interstitial pattern at the bilateral lung bases and favor mild pulmonary edema or atelectasis over pneumonia. 3. Cardiomegaly. Reviewed, dictated and finalized at location A. IMPRESSION: 1. Lines and tubes in expected positions as detailed above. 2. Mild increased interstitial pattern at the bilateral lung bases and favor mi ld pulmonary edema or atelectasis over pneumonia. 3. Cardiomegaly.
--- NOTE | ~2019-12-17 | XR_ITS ---
EXAMINATION: XR chest 1V portable DATE: 12/19/2019 05:54 INDICATION: Acute respiratory failure. Septic shock. TECHNIQUE: frontal view of the chest was obtained. COMPARISON: Chest radiograph dated 12/18/2019 FINDINGS: Endotracheal tube tip 2.4 cm above the ender. Right internal jugular central venous catheter with di stal tip in the right atrium. Nasogastric tube with proximal side-port in the body of the stomach and with distal tip collimated off the study. Opacities in the left mid to lower lung zone with blunting at the costophrenic angle consistent with small left pleural effusion and associated atelectasis and/or pneumonia. Minimal scattered opacities in the right lung which could also represent atelectasis or pneumonia. No pneumothorax or right-sided pleural effusion. Cardiomegaly. Median sternotomy wires and mediastinal surgical clips are seen, lik lolis from prior coronary artery bypass grafting. IMPRESSION: 1. Small left pleural effusion. 2. Bilateral airspace opacities, left greater than right which could represent atelectasis and/or pne umonia. Reviewed, dictated and finalized at location A. IMPRESSION: 1. Small left pleural effusion. 2. Bilateral airspace opacities, left greater than right which could represent atelectasis and/or pneumonia.
--- NOTE | ~2019-12-17 | XR_ITS ---
EXAMINATION: XR chest port-a-cath/central DATE: 12/17/2019 03:22 INDICATION: Central line placement TECHNIQUE: frontal view of the chest was obtained. COMPARISON: Chest radiograph dated 12/17/2019 FINDINGS: New right internal jugular central venous catheter with distal tip at the high right atrium. Mild predominantly linear opacities in the bilateral mid and lower lung zones and favor atelectasis o vicki pulmonary edema or pneumonia. No pneumothorax or pleural effusion. Cardiomegaly. Median sternotom y wires which may be related to prior prior coronary artery bypass grafting. IMPRESSION: 1. Bilateral scattered linear opacities and favor atelectasis over pulmonary edema or pneumonia. Reviewed, dictated and finalized at location A. IMPRESSION: 1. Bilateral scattered linear opacities and favor atelectasis over pulmonary ed giuseppe or pneumonia.
--- NOTE | ~2019-12-17 | XR_ITS ---
EXAMINATION: XR chest 2V DATE: 12/17/2019 01:11 INDICATION: Chest pressure TECHNIQUE: frontal and lateral views of the chest were obtained. COMPARISON: Chest radiograph and CT dated 12/15/2019 FINDINGS: Very small bilateral pleural effusions with blunting at the posterior sulci on the lateral projection . Prominent left paracardial fat pad at the anterior left lower lung zone. No focal airspace opacitie s, pulmonary edema or pneumothorax. Radio megaly with dense mitral annular calcification. Median ster notomy wires likely related to prior coronary artery bypass grafting. Calcified left hilar lymph node s consistent with old granulomatous disease. IMPRESSION: 1. Very small bilateral pleural effusions. 2. Cardiomegaly. Reviewed, dictated and finalized at location A.
--- NOTE | 2019-12-17 00:33 | ECG_ITS ---
Measurements Intervals [place] Rate: 136 P: 33 SC: 112 QRS: 97 QRSD: 102 T: -15 QT: 277 QTc: 417 Interpretive Statements SINUS TACHYCARDIA WITH SHORT SC INTERVAL RIGHT AXIS DEVIATION INCOMPLETE RIGHT BUNDLE BRANCH BLOCK BORDERLINE R WAVE PROGRESSION, ANTERIOR LEADS BORDERLINE ST-T WAVE ABNORMALITY- INFERIOR LEADS ABNORMAL ECG Electronically Signed On 12-17-2019 7:11:31 CDT by Hiren Mccloud D.O.
[2019-12-17 00:49] LABS: Basophils Absolute Auto 0.1 K/mm3 (0.0-0.1); Basophils Percent Auto 0.3 % (0.2-1.2); Eosinophils Percent Auto 0.2 % (0-4.4); Hematocrit 35.4 % (37.0-47.0); Hemoglobin 10.4 g/dL (12.0-15.0); Immature Granulocyte Absolute 0.29 K/mm3 (0.00-0.031); Immature Granulocyte Percent A 1.6 % (0-0.5); Lymphocytes Absolute Auto 1.03 K/mm3 (0.9-3.2); Lymphocytes Percent Auto 5.6 % (18.3-44.2); Mean Corpuscular HGB Conc 29.4 g/dl (32-36); Mean Corpuscular Volume 95.2 fl (80-100); Mean Platelet Volume 11.4 fl (7.4-10.4); Monocytes Absolute Auto 2.7 K/mm3 (0.1-0.6); Monocytes Percent Auto 14.8 % (2.6-8.5); Neutrophils Absolute Auto 14.2 K/mm3 (1.3-6.7); Neutrophils Percent Auto 77.5 % (45.5-73.1); Platelet Count Result 173 k/mm3 (150-375); Red Blood Count 3.72 M/mm3 (4.2-5.4); Red Cell Distribution Width 15.1 % (11.5-14.5); White Blood Count 18.3 K/mm3 (4.5-10.0)
[2019-12-17 00:59] LABS: INR 1.5; Prothrombin Time 17.6 Seconds (11.1-14.7)
[2019-12-17 01:00] LABS: Blood Urea Nitrogen 20 mg/dL (7-17); Calcium 8.9 mg/dL (8.4-10.2); Carbon Dioxide 23 mmol/L (22-30); Chloride 102 mmol/L (98-107); Estimated Glomerular Filt Rate 55; Glucose 119 mg/dL (65-105); Partial Thromboplastin Time 33.4 SECONDS (22.3-36.8); Potassium 4.5 mmol/L (3.4-5.0); Sodium 137 mmol/L (137-145)
--- NOTE | 2019-12-17 01:00 | ED.CHESTPAIN ---
HPI - Chest Pain General Chief Complaint: Chest Pain Stated Complaint: CP Time Seen by Provider: 12/17/19 00:52 History of Present Illness HPI narrative: Patient presents to the ED with her boyfriend. States she has had chest pain for 2 days upper chest radiating to lower chest, with a history of coronary artery disease and COPD. She has no cough, but has a fever of 102.5. She has had the fever for 3 days. She has 2 sores on her buttock, that is been there over a week, and the swelling and redness has been expanding, and there is drainage. She denies diabetes. MD complaint: chest pain Pertinent past history: coronary artery disease Onset (ago): day(s) Timing of current episode: episodic Prior episodes: Yes Severity: severe Related Data Home Medications Medication Instructions Recorded Confirmed atorvastatin 80 mg PO DAILY 09/07/19 12/13/19 pramipexole 1 mg PO TID 09/07/19 12/13/19 gabapentin 100 mg capsule 100 mg PO BID 10/10/19 12/13/19 amlodipine 10 mg PO DAILY 12/13/19 12/13/19 clonidine HCl 0.2 mg PO DAILY 12/13/19 12/13/19 Allergies Allergy/AdvReac Type Severity Reaction Status Date / Time methylprednisolone AdvReac Agitated Verified 11/28/19 07:58 [From Solu-Medrol] prochlorperazine AdvReac Unknown Verified 11/28/19 07:58 [From Compazine] Review of Systems Review of Systems: Narrative: CONSTITUTIONAL: She has fever, but not chills, or sweats. EYES: Denies visual changes, redness, or discharge. ENT: Denies rhinorrhea, congestion, sore throat, or otalgia. CARDIOVASCULAR: Denies chest pain, palpitations, or edema. RESPIRATORY: Denies cough but does have shortness of breath.. GASTROINTESTINAL: Denies abdominal pain, nausea, vomiting, or diarrhea. But does have sores on her bottom. GENITOURINARY: Denies dysuria or hematuria. SKIN: Denies rash or itching. MUSCULOSKELETAL: Denies back pain, joint pain, or myalgia. NEUROLOGIC: Denies headache, numbness, or weakness. [facility] Past Medical History Medical History Aortic valve sclerosis Asthma Atrial flutter COPD (chronic obstructive pulmonary disease) CVA (cerebral vascular accident) GERD (gastroesophageal reflux disease) Hypercholesteremia Hypertension Morbid obesity with BMI of 45.0-49.9, adult Surgical History Surgical History H/O section H/O foot surgery Bilateral H/O: hysterectomy History of appendectomy History of cholecystectomy History of knee replacement, total Bilateral Hx of CABG Social History Social History Smoking status: Never smoker Second hand tobacco smoke exposure: Yes Alcohol intake: never Drinks per week: 1 Substance use: never Substance use type: does not use Gender identity (if verbalized by the patient): Female Spiritual care concerns: No Agree to blood products: Yes Exam Narrative: Exam Narrative: GENERAL: Morbidly obese, lying in position on her left side, no direct eye contact. HEAD: Normocephalic, atraumatic. EYES: PERRLA and EOMI. ENT: Nares clear, no rhinorrhea or epistaxis. Mucous membranes moist. NECK: Supple. CHEST: Clear to auscultation. No respiratory distress. HEART: Regular rate and rhythm. No murmur heard. Normal peripheral pulses. ABDOMEN: Soft, nontender, nondistended, normal active bowel sounds. Left buttock cheek with redness and swelling and drainage. EXTREMITIES: Normal range of motion. No edema. SKIN: Warm, dry, no rash. Flushed hot skin in her upper chest. NEURO: No focal deficits. Alert and oriented x3. PSYCH: Flat affect, poor eye contact. Course Consultations Consultation #1: Call Dr. Cat, and we discussed the case. He agrees to consult in the ICU. Date: 12/17/19 Time: 03:21 Consultation #2: Call Dr. Allen, and he agrees with ICU admission. Date: 12/17/19 Time: 03:21 Consultatio
[2019-12-17 01:09] LABS: Add Urine Microscopic? YES; Appearance Urine Cloudy (Clear); Bacteria Urine Trace /hpf; Bilirubin Urine Negative (Negative); Blood Urine Negative (Negative); Color Urine Yellow (Yellow); Glucose Urine UA Negative (Negative); Hyaline Casts Urine 50+ /lpf; Ketones Urine Negative (Negative); Leukocyte Esterase Ur Negative LEU/UL (Negative); Mucus Urine Moderate /lpf; Nitrate Urine Negative (Negative); Protein Urine Negative (Negative); Specific Grav Ur 1.016 (1.001-1.035); Squamous Epithelial Cell Urine Many /hpf (Few)
[2019-12-17 01:16] LABS: Troponin I 0.076 ng/mL (0.000-0.034)
[2019-12-17] MEDS: SODIUM CHLORIDE 0.9% IV 1,000 ML 999 ML IV CONT ×3 (01:33→06:50)
[2019-12-17] MEDS: ACETAMINOPHEN 325 MG TABLET 650 MG PO (01:33)
[2019-12-17 01:57] LABS: Alveolar/Arterial O2 Gradient 71.2 mmHg; Base Excess ABG 1.6 mEq/l (+/-2.0); Fractional Inspired Oxygen 21 %; HCO3 ABG 27.4 mEq/l (22.0-26.0); Oxygen Content ABG 3.7 %vol (16.0-22.0); Oxyhemoglobin 27.1 % THb (90.0-100.0); PCO2 ABG 48.7 mmHg (35.0-45.0); PO2 FiO2 Ratio Arterial Blood 0.96 %; Total Hemoglobin 9.7 g/dL (12.0-18.0); pH ABG 7.368 (7.350-7.450)
[2019-12-17 01:59] LABS: Device ROOM AIR; Modified Allen's Test Pass; Oxygen Saturation ABG 30.8 % (95.0-100.0); PO2 ABG 20.2 mmHg (80.0-100.0); Site Drawn LEFT RADIAL
[2019-12-17] MEDS: MORPHINE SULFATE 2 MG/ML INJ IV PUSH (02:00)
[2019-12-17 02:04] LABS: NT Pro B Type Natriuretic Pept 2440 PG/ML (5-100)
[2019-12-17 02:20] LABS: Lactic Acid 2.6 mmol/L (0.7-2.1)
--- NOTE | 2019-12-17 02:54 | PC.NURSE ---
edp isela in room for central line placement. pt signed consent.
[2019-12-17] MEDS: NOREPINEPHRINE 8 MG/D5W 250 ML 8 MG/250 ML BAG 18.8 MG IV CONT (03:37)
[2019-12-17] MEDS: FUROSEMIDE INJ 40 MG/4 ML VIAL IV PUSH (04:13)
--- NOTE | 2019-12-17 05:14 | PC.NURSE ---
pt admitted to ICu 10 on room air placed on monitor
[2019-12-17] MEDS: SODIUM CHLORIDE 0.9% IV 1,000 ML 125 ML IV CONT ×2 (05:54→08:01)
--- NOTE | 2019-12-17 06:18 | PM.IMHP ---
H&P: HPI History of Present Illness Chief complaint: Right chest pressure Narrative: Patient contact: 12/17/2019 at 5:40 a.m. Padmini Monreal is a 69 year old female with a past medical history of atrial flutter, morbid obesity, and obstructive sleep apnea who presented to the ER with right-sided chest pressure. The patient had been hospitalized at [facility] 12/13/2019 through 12/16/2019. Her chest pain was in the upper chest and radiating into her lower chest. She had not had any cough. When she was hospitalized at [facility] she had a CT of her chest that was negative for PE. She had serial troponins that were minimally elevated with a flat profile. Due to her chest pain and respiratory symptoms she was tested for COVID-19 which was found to be negative. She was having chest tightness at that time and it was thought that she may have a COPD exacerbation. Febrile when she initially presented to [facility] with temperature of a 102? degrees on 12/13/2019. However she was afebrile since the morning of the . The patient continued to have leukocytosis that actually went up slightly prior to the patient's discharge. On the day of discharge the patient has CT of her pelvis with contrast which demonstrated phlegmon and induration along the interior aspect of the left buttock without discrete organized abscess. The patient reports that her buttock had been causing her pain for 3 days prior to [address] being performed. On exam the patient was noted to have a open abscess that was draining serosanguineous fluid. She had marked area of induration and tenderness to palpation. The patient had been afebrile, with normal heart rate and only mild tachypnea prior to discharge from [facility]. She had been discharged home in the early afternoon. She had arrived to our ER just after midnight. ER the patient temperature was a 102.5?, her heart rate was in the 110s, she was tachypneic andWith blood pressures of 80/40. 2 L of normal saline bolus. She remained hypotensive and a central line was placed by the ER provider. The patient was started on Levophed at that time. After Levophed was initiated the ER physician was concerned that the patient may have some fluid overload given a BNP of 2440. She subsequently was given 40 of IV Lasix push. The patient had only had 100 mL of urine output on arrival to the ICU. She appeared clinically dry with dry mucous membranes. Subsequently I gave the patient an additional L of IV fluids. The patient reports that she has chronic lower extremity edema but her edema is significantly decreased from her baseline. She denies any nausea or vomiting. Review of Systems Review of Systems: Narrative: 12 systems were reviewed with pertinent positives and negatives per HPI. Except as documented in the HPI, all other systems were reviewed and are negative. However limited as the patient is somnolent and falls asleep multiple times throughout the interview process. [facility] Past Medical History Medical History (Updated 12/17/19 @ 06:39 by Elisa Arevalo DO) Anxiety with depression Aortic valve stenosis Moderate aortic valve stenosis with a peak velocity of 356, mean gradient of 22 with the aortic valve area of 1.2 Asthma Atrial flutter Congestive heart failure Diastolic congestive heart failure noted on echocardiogram from September 2019, EF of 65-70%, moderately increased left ventricular wall thickness, E/e'significantly elevated at 30 COPD (chronic obstructive pulmonary disease) Coronary artery disease CVA (cerebral vascular accident) GERD (gastroesophageal reflux disease) Hypercholesteremia Hypertension Mild pulmonary hypertension Noted on echocardiogram September 2019 with RVSP of 45 Morbid obesity with BMI of 45.0-49.9, adult Obstructive sleep apnea Severe obesity (BMI >= 40) Surgical History Surgical History (Updated 12/17/19 @ 07:43 by Elisa Arevalo DO) H/O section H/O foot surgery Bilateral Histo
[2019-12-17 07:11] LABS: Lactic Acid Reflex 1.4 mmol/L (0.7-2.1)
[2019-12-17 07:28] LABS: Troponin I 0.215 ng/mL (0.000-0.034)
--- NOTE | 2019-12-17 09:08 | PM.CNCAR ---
Assessment and Plan Assessment and plan (1) Elevated troponin: Code(s): R79.89 - Other specified abnormal findings of blood chemistry Status: Acute (2) Septic shock: Code(s): A41.9 - Sepsis, unspecified organism; R65.21 - Severe sepsis with septic shock Status: Acute Assessment and Plan: Mild troponin elvation most probably due to sepsis. No acute EKG changes. Recent ECHO with normal LV systolic function (LVEF 60-65%) treat underlying infectious process. cont statin. restart Bblocker when hypotension resolves. (3) Cellulitis and abscess of buttock: Code(s): L02.31 - Cutaneous abscess of buttock; L03.317 - Cellulitis of buttock Status: Acute Assessment and Plan: surgery fu (4) COPD (chronic obstructive pulmonary disease): Qualifiers: COPD type: unspecified COPD Qualified Code(s): J44.9 - Chronic obstructive pulmonary disease, unspecified Code(s): J44.9 - Chronic obstructive pulmonary disease, unspecified Status: Acute Assessment and Plan: management per dope firer (5) CVA (cerebral vascular accident): Code(s): I63.9 - Cerebral infarction, unspecified Status: Acute (6) Hypertension: Code(s): I10 - Essential (primary) hypertension Status: Acute Assessment and Plan: Hold BP meds till on vaspressors Than you for consult Will fu History of Present Illness History of Present Illness Consult date/time: 12/17/19 09:08 Pt is a pleasant 69 y/o female with PMH COPD, CAD, HTN, CVA who was admitted last night due to fever and chest discomfort. pt is a poor historian and most of the history is obtained from medical records and nursing staff. Pt was admitted to [facility] on 12/13/19. At that time was complaining for R sided chest discomfort. She was found to be febrile. Her temp improved and she was dc yesterday. Last night developed fever 102.5 and came to [facility]. Pt was found to have an abscess of buttock and is going for surgery today. WBC 18 k, trop 0.2, no acut EKG changes. recent ECHO LVEF 60-65%. Now is in ICU under care of dope firer. On vasopressors with BP 120/80. no CP or SOB. Pt was seen and examined, chart was reviewed, case d/w pt's nurse. Reason For Visit: Right chest pressure Review of Systems Review of Systems: All systems reviewed & are unremarkable except as noted in HPI and below Constitutional: Constitutional: Reports as per HPI Eyes: Eyes: Reports as per HPI ENT: Reports system reviewed and no additional complaints, except as documented and Reports as per HPI Cardiovascular: Cardiovascular: Reports as per HPI Respiratory: Respiratory: Reports as per HPI Gastrointestinal: Gastrointestinal: Reports as per HPI Genitourinary: Genitourinary: Reports as per HPI Musculoskeletal: Musculoskeletal: Reports as per HPI [facility] Past Medical History Medical History (Updated 12/17/19 @ 06:39 by Elisa Arevalo DO) Anxiety with depression Aortic valve stenosis Moderate aortic valve stenosis with a peak velocity of 356, mean gradient of 22 with the aortic valve area of 1.2 Asthma Atrial flutter Congestive heart failure Diastolic congestive heart failure noted on echocardiogram from September 2019, EF of 65-70%, moderately increased left ventricular wall thickness, E/e'significantly elevated at 30 COPD (chronic obstructive pulmonary disease) Coronary artery disease CVA (cerebral vascular accident) GERD (gastroesophageal reflux disease) Hypercholesteremia Hypertension Mild pulmonary hypertension Noted on echocardiogram September 2019 with RVSP of 45 Morbid obesity with BMI of 45.0-49.9, adult Obstructive sleep apnea Severe obesity (BMI >= 40) Surgical History Surgical History (Updated 12/17/19 @ 07:43 by Elisa Arevalo DO) H/O section H/O foot surgery Bilateral History of appendectomy History of cholecystectomy History of hysterectomy History of knee replacement, total
[2019-12-17 09:23] LABS: Alveolar/Arterial O2 Gradient 42.3 mmHg; Device ROOM AIR; Fractional Inspired Oxygen 21 %; HCO3 ABG 21.9 mEq/l (22.0-26.0); Modified Allen's Test Pass; Oxygen Content ABG 15.4 %vol (16.0-22.0); Oxygen Saturation ABG 95.3 % (95.0-100.0); Oxyhemoglobin 94.1 % THb (90.0-100.0); PCO2 ABG 30.9 mmHg (35.0-45.0); PO2 ABG 70.4 mmHg (80.0-100.0); PO2 FiO2 Ratio Arterial Blood 3.35 %; Site Drawn LEFT RADIAL; Total Hemoglobin 11.6 g/dL (12.0-18.0); pH ABG 7.469 (7.350-7.450)
[2019-12-17] MEDS: PANTOPRAZOLE SODIUM IV 40 MG VIAL IV PUSH ×2 (10:55→20:03)
--- NOTE | 2019-12-17 11:19 | PM.CNGS ---
Assessment and Plan Assessment and plan (1) Perirectal abscess: Code(s): K61.1 - Rectal abscess Status: Acute Assessment and Plan: I spoke with the rug cleaner hand, Dr. Allen. Although the patient has had Eliquis just yesterday, she is in septic shock with the likely source of the shock is her perirectal abscess. We will go ahead and proceed with incision and drainage urgently today. I discussed the procedure with the patient. She is agreeable to going ahead. I explained that she will need to be intubated on a ventilator postoperatively. (2) Septic shock: Code(s): A41.9 - Sepsis, unspecified organism; R65.21 - Severe sepsis with septic shock Status: Acute Assessment and Plan: Currently on Levophed. Proceed with source control as above. (3) Acute dyspnea: Code(s): R06.00 - Dyspnea, unspecified Status: Acute Assessment and Plan: Patient very tachypnea can and may well need to be intubated before surgery anyway. (4) COPD (chronic obstructive pulmonary disease): Qualifiers: COPD type: unspecified COPD Qualified Code(s): J44.9 - Chronic obstructive pulmonary disease, unspecified Code(s): J44.9 - Chronic obstructive pulmonary disease, unspecified Status: Chronic History of Present Illness Consult details Consult date: 12/17/19 Reason for consult: other (Perirectal abscess with septic shock) Narrative: The patient is a 69-year-old woman who came to the emergency room very early today with a perirectal abscess. She has numerous medical conditions and was just discharged from [facility] yesterday. She has been in the ICU and is gone into septic shock. She has tachypnea and is on Levophed. I was asked to see her regarding a perirectal abscess believe to be the source of her sepsis. Review of Systems Review of Systems: All systems reviewed & are unremarkable except as noted in HPI and below Constitutional: Constitutional: Reports body ache(s), Reports chills, Reports fatigue and Reports weakness Cardiovascular: Cardiovascular: Denies chest pain, Reports dyspnea, Reports dyspnea on exertion and Reports orthopnea Respiratory: Respiratory: Denies cough, Reports dyspnea and Reports dyspnea on exertion Gastrointestinal: Gastrointestinal: Denies bloating, Denies constipation and Denies nausea Neurologic: Denies confusion and Denies headache(s) Psychiatric: Psychiatric: Denies confusion Hematologic/Lymphatic: Hematologic/Lymphatic: Reports easy bleeding and Reports easy bruising Comments: Patient takes Eliquis. Has not been given today but has had doses recently. [facility] Past Medical History Medical History Anxiety with depression Aortic valve stenosis Moderate aortic valve stenosis with a peak velocity of 356, mean gradient of 22 with the aortic valve area of 1.2 Asthma Atrial flutter Congestive heart failure Diastolic congestive heart failure noted on echocardiogram from September 2019, EF of 65-70%, moderately increased left ventricular wall thickness, E/e'significantly elevated at 30 COPD (chronic obstructive pulmonary disease) Coronary artery disease CVA (cerebral vascular accident) GERD (gastroesophageal reflux disease) Hypercholesteremia Hypertension Mild pulmonary hypertension Noted on echocardiogram September 2019 with RVSP of 45 Morbid obesity with BMI of 45.0-49.9, adult Obstructive sleep apnea Severe obesity (BMI >= 40) Surgical History Surgical History H/O section H/O foot surgery Bilateral History of appendectomy History of cholecystectomy History of hysterectomy History of knee replacement, total Bilateral History of mitral valve replacement with bioprosthetic valve Hx of CABG This single-vessel bypass at the time of valve replacement surgery Family History Family History (Reviewed 12/17/19 @ 11:23
[2019-12-17] MEDS: ACETAMINOPHEN ELIXIR 325 MG/10.15 ML UDC 650 MG PO (11:27)
--- NOTE | 2019-12-17 12:02 | WPDCNINT ---
Assessment and Plan Assessment and plan (1) Acute respiratory failure: Qualifiers: Respiratory failure complication: unspecified whether with hypoxia or hypercapnia Qualified Code(s): J96.00 - Acute respiratory failure, unspecified whether with hypoxia or hypercapnia Code(s): J96.00 - Acute respiratory failure, unspecified whether with hypoxia or hypercapnia Status: Acute Assessment and Plan: Patient with septic shock, tachypneic, having difficulty breathing, blood gases were within normal limits, patient. Decided intubated the patient placed on mechanical ventilation likely related to septic shock. Patient was intubated on 12/17/2019 -chest x-ray and ABGs reviewed post intubation, ventilator will be adjusted -continue bronchodilators -patient on vanc and Zosyn -sedation with fentanyl and Versed infusion, maintain RASS of 0 to -2, daily sedation vacation (2) Septic shock: Code(s): A41.9 - Sepsis, unspecified organism; R65.21 - Severe sepsis with septic shock Status: Acute Assessment and Plan: Septic shock most likely related to perirectal abscess, cellulitis -appreciate surgery evaluation recommendation, patient will be taken to the OR -antibiotics as above -lactic acid has normalized -patient was adequately fluid resuscitated, continue maintenance IV fluids -remains febrile likely related to the abscess/cellulitis (3) Cellulitis and abscess of buttock: Code(s): L02.31 - Cutaneous abscess of buttock; L03.317 - Cellulitis of buttock Status: Acute Assessment and Plan: Cellulitis and abscess of the buttock/pain rectal abscess -for I&D today (4) Elevated troponin: Code(s): R79.89 - Other specified abnormal findings of blood chemistry Status: Acute Assessment and Plan: Elevated troponin most likely related to ischemic demand -appreciate Cardiology evaluation who also think that this is secondary to septic shock and infection -echocardiogram has been ordered (5) COPD (chronic obstructive pulmonary disease): Qualifiers: COPD type: unspecified COPD Qualified Code(s): J44.9 - Chronic obstructive pulmonary disease, unspecified Code(s): J44.9 - Chronic obstructive pulmonary disease, unspecified Status: Chronic Assessment and Plan: History of COPD -continue antibiotics and bronchodilators -no wheezing noted, and given infection, will hold off steroids (6) DVT prophylaxis: Code(s): Z29.9 - Encounter for prophylactic measures, unspecified Status: Acute Assessment and Plan: Patient is on Eliquis at home which is currently on hold as patient is will be taken to the OR for I and D -continue SCDs Stress ulcer prophylaxis: Protonix Additional Plan Discussed with patient updated with her condition and plan of care. She was having respiratory distress and I discussed with her regarding intubation to which she was agreeable. Code status: Full code Critical care time spent: 49 minutes Due to a high probability of clinically significant, life threatening deterioration, the patient required my highest level of preparedness to intervene emergently and I personally spent this critical care time directly and personally managing the patient. This critical care time included obtaining a history; examining the patient; pulse oximetry; ordering and review of studies; arranging urgent treatment with development of a management plan; evaluation of patient's response to treatment; frequent reassessment; and discussions with other providers. It was exclusive of separately billable procedures and treating other patients and teaching time. Please see Assessment and Plan section and the rest of the note for further information on patient assessment and treatment Chairman & Chief Executive Officer Consult Note Consult date: 12/17/19 Time Seen: 07:01 Reason for consult: Septic shock, perirectal abscess, cellulitis, acute respiratory failure requiring
[2019-12-17 12:08] LABS: Base Excess ABG -2.1 mEq/l (+/-2.0); Fractional Inspired Oxygen 80 %; HCO3 ABG 22.1 mEq/l (22.0-26.0); Oxygen Content ABG 19.8 %vol (16.0-22.0); Oxygen Saturation ABG 99.7 % (95.0-100.0); Oxyhemoglobin 98.3 % THb (90.0-100.0); PCO2 ABG 36.1 mmHg (35.0-45.0); PO2 ABG 288.5 mmHg (80.0-100.0); PO2 FiO2 Ratio Arterial Blood 3.61 %; Total Hemoglobin 13.8 g/dL (12.0-18.0); pH ABG 7.405 (7.350-7.450)
[2019-12-17 12:09] LABS: Device VENTILATOR; Modified Allen's Test Pass; Site Drawn LEFT RADIAL
[2019-12-17 12:10] LABS: Arterial Blood Gas PEEP 5 cmH2O; Arterial Blood Gas Tidal Volume 370 ml; Arterial Blood Gas Vent Mode CMV; Arterial Blood Gas Ventilator rate 18 /MIN
--- NOTE | 2019-12-17 12:20 | WPDPROCEDUR ---
Procedures Intubation Intubation Date: 12/17/19 Intubation Time: 10:15 A pre-procedural Time-Out was completed immediately before starting the procedure and confirmed: Patient Identification, Site, Procedure, Patient Position and the Availability of Requisite Equipment: Yes Sedative: etomidate Paralytic: succinylcholine Laryngoscope: fiber optic video scope ET tube size: 7.5 Tube secured depth (cm): 23 Tube secured location: lips Tube placement confirmation: visualized tube passing through cords, equal breath sounds bilaterally, no breath sounds over epigastrium and confirmation by capnometry Patient tolerated procedure: well and no complications Intubation complications: none Additional comments: After obtaining consent from the patient and explaining the rationale for intubation. it was decided to go ahead and intubate the patient. The patient was lying in the supine position. Preoxygenation via BVM was provided for a minimum of 3 minutes. The patient had continuous cardiac as well as pulse oximetry monitoring during the procedure. Rapid sequence induction was provided by administration of Etomidate and Succinylcholine. A Glidescope blade 4 was used to directly visualize the vocal cords. A 7.5 mm endotracheal tube was visualized advancing between the cords to a level of 23 cm at the lip. The stylette was then removed. Tube placement was also noted by fogging in the tube, equal and bilateral breath sounds, no sounds over the epigastrium, and end-tidal colorimetric monitoring. The cuff was then inflated with 10 ml of air and the tube secured using a commercially available device. A good pulse oximetry wave form was seen on the monitor throughout the procedure. The patient was then connected to the ventilator at a tidal volume of 372 ml; rate of 18; FiO2 of 80%; and PEEP of 5. A portable chest x-ray has been ordered for placement. Continued sedation will be provided by Fentanyl and Versed continuous infusion titrated to a RASS of -2. The patient tolerated the procedure well.
--- NOTE | 2019-12-17 12:24 | WPDANESEPPF ---
Anes - Initial Pre Proc Eval Procedure: Operation Date: 12/17/19 13:30 Proposed Procedures p Incision and Drainage Kay-Rectal Abscess - To Delvalle MD Date/Time: 12/17/19 12:24 Surgeon: Elisa Arevalo DO Pre Op Diagnosis: Right chest pressure Patient Data Age: 69 Gender: F Height: 1.6 m Weight: 117 kg Last Vital Signs Temp 38.5 C H 12/17/19 12:00 Pulse 138 H 12/17/19 12:00 Resp 23 H 12/17/19 12:00 BP 88/36 L 12/17/19 12:00 Pulse Ox 99 12/17/19 12:00 Allergies Allergy/AdvReac Type Severity Reaction Status Date / Time methylprednisolone AdvReac Agitated Verified 11/28/19 07:58 [From Solu-Medrol] prochlorperazine AdvReac Unknown Verified 11/28/19 07:58 [From Compazine] Home Medications Medication Instructions Recorded Confirmed Type atorvastatin 80 mg PO DAILY 09/07/19 12/17/19 History duloxetine 60 mg capsule,delayed 60 mg PO DAILY #90 cap 09/26/19 12/17/19 Rx release gabapentin 100 mg capsule 100 mg PO BID 10/10/19 12/17/19 History apixaban 5 mg tablet 5 mg PO BID #180 tablet 10/17/19 12/17/19 Rx Flovent HFA 1 puff INHALATION Q12HR 30 Days gm 11/21/19 12/17/19 Rx bumetanide 2 mg PO BID 30 Days #30 tablet 11/21/19 12/17/19 Rx omeprazole 40 mg capsule,delayed 80 mg PO DAILY #180 cap 12/10/19 12/17/19 Rx release amlodipine 10 mg PO DAILY 12/13/19 12/17/19 History clonidine HCl 0.2 mg PO DAILY 12/13/19 12/17/19 History albuterol sulfate 1.25 mg INHALATION Q4H #90 ml 12/16/19 12/17/19 Rx albuterol sulfate 90 mcg/actuation 2 puff INHALATION .every 6 hours 12/16/19 12/17/19 Rx aerosol inhaler PRN #18 gm clindamycin HCl 300 mg PO Q8H 7 Days #21 cap 12/16/19 12/17/19 Rx tramadol 50 mg PO Q6H PRN #14 tablet 12/16/19 12/17/19 Rx potassium chloride 10 meq PO DAILY 12/17/19 12/17/19 History Laboratory Tests 12/17/19 12/17/19 12/17/19 00:44 00:44 00:44 WBC 18.3 K/mm3 H K/mm3 (4.5-10.0) RBC 3.72 M/mm3 L M/mm3 (4.2-5.4) Hgb 10.4 g/dL L g/dL (12.0-15.0) Hct 35.4 % L % (37.0-47.0) MCV 95.2 fl fl (80-100) MCH 28.0 pg pg (26-34) MCHC 29.4 g/dl L g/dl (32-36) RDW 15.1 % H % (11.5-14.5) Plt Count 173 k/mm3 k/mm3 (150-375) MPV 11.4 fl H fl (7.4-10.4) Immature Gran % (Auto) 1.6 % H % (0-0.5) Neut % (Auto) 77.5 % H % (45.5-73.1) Lymph % (Auto) 5.6 % L % (18.3-44.2) [place] % (Auto) 14.8 % H % (2.6-8.5) Eos % (Auto) 0.2 % % (0-4.4) Baso % (Auto) 0.3 % % (0.2-1.2) Lymph # (Auto) 1.03 K/mm3 K/mm3 (0.9-3.2) [place] # (Auto) 2.7 K/mm3 H K/mm3 (0.1-0.6) Eos # (Auto) 0.0 K/mm3 K/mm3 (0-0.3) Baso # (Auto) 0.1 K/mm3 K/mm3 (0.0-0.1) Abs Immat Gran (auto) 0.29 K/mm3 H K/mm3 (0.00-0.031) Absolute Neuts (auto) 14.2 K/mm3 H K/mm3 (1.3-6.7) Absolute Nucleated RBC 0.0 K/mm3 K/mm3 (0.0-0.012) Nucleated RBC % 0.0 % % (0.0-0.2) PT 17.6 Seconds H Seconds (11.1-14.7) INR 1.5 APTT 33.4 SECONDS SECONDS (22.3-36.8) Puncture Site ABG pH ABG pCO2 ABG pO2 ABG PO2/FiO2 Ratio ABG HCO3 ABG O2 Saturation ABG O2 Content ABG Base Excess A-a Gradient Oxyhemoglobin Total Hemoglobin O2 Delivery Device O2 Liters/Min Minute Volume Vent Rate Vent Mode FiO2 Tidal Volume PEEP Peak Inspir Pressure Pressure Support Sodium 137 mmol/L mmol/L (137-145) Potassium 4.5 mmol/L mmol/L (3.4-5.0) Chloride 102 mmol/L mmol/L (98-107) Carbon Dioxide 23 mmol/L mmol/L (22-30) BUN 20 mg/dL H mg/dL
--- NOTE | 2019-12-17 13:03 | PC.NURSE ---
1250-Pt. transported to OR accompanied by myself, RT, and OR transporter. Bedside report given to Yony ZAIDI in OR. Pt. stable upon handoff. Versed, Fentanyl, and Levophed infusing per MAR.
--- NOTE | 2019-12-17 13:57 | PM.PROC ---
Procedure Note - Detailed Date of procedure: 12/17/19 Pre-op diagnosis: Perirectal abscess, septic shock Perirectal abscess, septic shock Post-op diagnosis: same Procedure performed: Incision and drainage complicated perirectal abscess Description of procedure: Patient was intubated on a mechanical ventilator in the intensive care unit. She is also on vasopressor of agents to support her blood pressure. She was taken directly from the intensive care unit to the operating room. She was induced into general anesthesia and then turned prone and placed in prone lexie-knife position. The buttocks were taped apart. Prep and drape was carried out. The abscess was on the left side of the rectum. An external opening was located cephalad to the rectum and then there was some necrotic tissue even further cephalad on the medial left buttocks. I probed the external opening both towards the necrotic tissue and towards the rectum. It tracked down to a posterior midline internal opening. I passed a curved clamp through this and grasped a quarter-inch Sabina drain. I pulled this through the tract. I then opened the external opening a bit larger so that I could get a finger into the wound. I broke up loculations and then excised the larger of the 2 areas of gangrenous skin. There was purulence in the subcutaneous and the skin here. The skin only over lied the tract between the original external opening and the gangrenous area. I then opened up this area of skin and debrided it. I excisionally debrided skin and subcutaneous between the external opening and the gangrenous area on the left side of the upper buttock. There was quite a bit of purulence coming from below the gangrenous area and I went ahead and got cultures of this. I then found several wound tracks and opened these into 1 cavity. This was done with the cautery as well as some blunt dissection. The patient had been taking Eliquis and surprisingly there was not that much bleeding associated with this excisional debridement. I then checked from the external opening down to the internal opening. This was a fairly wide area which I thought would respond well to using the Mccoy drain as a seton. I did probe towards the right side of the perianal area and found no tracking on the right side. I used the cautery for hemostasis primarily on the skin and the superficial subcutaneous. I packed the deeper abscess cavity with a laparotomy sponge. I then sutured the Sabina to itself using an 0 silk suture. I cut off the excess Mccoy drain. This formed a nice seton between the internal opening in the external opening. I then removed a laparotomy sponge and packed the deeper abscess cavity with Betadine moistened vaginal packing. There was essentially no bleeding at this point. We then placed fluffs ABDs and promise panties. The patient was returned to a supine position. She was kept intubated and taken directly back to the intensive care unit in good condition. Sponge and needle counts were correct x2. Anesthesia: GETA Surgeon: To Delvalle MD Toeing Stockings: Wilda ESTEVEZ Estimated blood loss (mL): 10 Drains: Yes (Sabina drain as a seton) Packing: Yes (Vaginal packing) Pathology: yes (Cultures only) Complications: None Condition: critical Disposition: ICU Findings: Large complicated left-sided perirectal abscess with necrotic skin and infected subcutaneous tissue requiring drainages well as excisional debridement of both skin and subcutaneous.
--- NOTE | 2019-12-17 14:22 | PC.NURSE ---
1355-Pt. back to room via anesthesia and [employer]ATION [employer]. I received bedside report. Pt. stable upon transfer. Will assume care.
[2019-12-17] MEDS: IPRATROPIUM BR 0.02% INH SOLN 0.5 MG/2.5 ML VIAL INHALATION ×2 (14:27→20:28)
--- NOTE | 2019-12-17 16:10 | PM.IMPN ---
Progress Note: A&P Assessment and Plan (1) Septic shock: Code(s): A41.9 - Sepsis, unspecified organism; R65.21 - Severe sepsis with septic shock Status: Acute Assessment and Plan: Due to cellulitis and/or abscess of buttock. Continue broad-spectrum antibiotic coverage. Await blood and wound cultures. Continue IV fluid hydration. Wean Levophed as tolerated. per can washer (2) Cellulitis and abscess of buttock: Code(s): L02.31 - Cutaneous abscess of buttock; L03.317 - Cellulitis of buttock Status: Acute Assessment and Plan: The patient has been started on Zosyn and vancomycin. Blood cultures are pending. Wound cultures from outside facility are pending. Blood cultures from outside facility are negative to date. Patient received 2 L normal saline in the ER and was started on Levophed. general surgery I&D ed today and further cultures obtained (3) Elevated troponin: Code(s): R79.89 - Other specified abnormal findings of blood chemistry Status: Acute Assessment and Plan: secondary to demand ischemia from the patient's septic shock and hypotension. Will continue to trend troponins and monitor telemetry. Not secondary to acute plaque rupture. Subjective Date/time seen: 12/17/19 16:10 Interval history: Date of visit 12/16. Hypertensive white female with history diastolic heart failure admitted with cellulitis abscess perirectal and sepsis with hypotension. Presently mechanically ventilated and on pressors in the ICU unresponsive Exam Narrative: Exam Narrative: PHYSICAL EXAM: Blood pressure 102/60 pulse 120 saturating 99% on FiO2 of 60% in fee per 5 General: Acutely ill-appearing, morbidly obese HEENT: , no scleral icterus Neck: Large neck circumference no significant lymphadenopathy, trachea midline Respiratory: Clear to auscultation bilaterally Cardiovascular: Systolic murmur, sinus tachycardia, 1+ bilateral radial pulses, 2+ bilateral pedal pulses Gastrointestinal: Obese, nontender, nondistended, positive bowel sounds Skin: wound left buttock now covered after I&D Extremities: Chronic venous stasis changes ,mild bilateral lower extremities, no pitting edema, Neurological: sedated on vent Objective Data Vital Signs Vital Signs: Vital Signs - 24 hr 12/17/19 00:17 12/17/19 00:31 12/17/19 01:52 Temperature 39.2 C H Pulse Rate 131 H 115 H Respiratory Rate 27 H 24 H Blood Pressure 114/53 L 105/67 Pulse Oximetry 94 99 98 12/17/19 02:03 12/17/19 02:37 12/17/19 02:46 Temperature 37.9 C H 37.9 C H Pulse Rate 117 H 113 H Respiratory Rate 25 H 26 H Blood Pressure 80/40 L 93/47 L Pulse Oximetry 100 100 12/17/19 03:37 12/17/19 03:57 12/17/19 04:36 Temperature 37.8 C H Pulse Rate 112 H 107 H 112 H Respiratory Rate 21 H 25 H Blood Pressure 93/47 L 126/61 133/55 L Pulse Oximetry 95 100 12/17/19 04:41 12/17/19 05:52 12/17/19 08:00 Temperature 37.2 C 37.2 C Pulse Rate 111 H 113 H 117 H Respiratory Rate 21 H 31 H Blood Pressure 81/29 L 91/51 L 135/75 Pulse Oximetry 97 96 12/17/19 09:20 12/17/19 10:00 12/17/19 10:35 Temperature 39.4 C H Pulse Rate 130 H 122 H Respiratory Rate 29 H Blood Pressure 138/69 Pulse Oximetry 97 100 100 12/17/19 10:36 12/17/19 10:37 12/17/19 11:00 Temperature Pulse Rate 124 H 121 H Respiratory Rate 25 H 24 H Blood Pressure 87/34 L Pulse Oximetry 12/17/19 11:27 12/17/19 11:30 12/17/19 11:49 Temperature 39.1 C H Pulse Rate Respiratory Rate Blood Pressure 91/36 L 82/39 L Pulse Oximetry 12/17/19 12:00 12/17/19 12:27 12/17/19 13:08 Temperature 38.5 C H 37.7 C H Pulse Rate 138 H Respiratory Rate 23 H Blood Pressure 88/36 L 100/78 Pulse Oximetry 99 12/17/19 14:00 12/17/19 14:04 12/17/19 14:15 Temperature 37.3 C 37.3 C Pulse Rate 130 H 139 H 131 H Respiratory Rate 26 H 21 H Blood Pressure 252/99 H 117/43 L Pulse Oxi
[2019-12-17] MEDS: ALBUTEROL SULFATE NEB 2.5 MG/0.5 ML INH 1.25 MG INHALATION (20:29)
[2019-12-18] VITALS (58 sets, daily range): BP systolic 85–150; BP diastolic 42–76; PULSE 65–105; RESP 13–25; TEMP 36.9–37.8; O2SAT 97–100
--- NOTE | 2019-12-18 | ECHO_ITS ---
Patient Info Name: Padmini Monreal Age: 69 years : 1950 Gender: Female Ht: 63 in Wt: 257 lbs BSA: 2.34 m2 HR: 68 bpm BP: 100 / 46 mmHg Heart Rhythm: Sinus Rhythm Technical Quality: Fair Exam Date: 12/18/2019 2:50 PM Exam Location: [facility] Pulmonary Exam Room: ICU 10 Patient Status: Inpatient Admit Date: 12/17/2019 Staff Ordering Physician: Hiren Mccloud DO Vending Machine Filler: Karli Castro RDCS Attending Provider: Elisa Arevalo DO Referring Physician: Rogers COLBERT; Exam Type: CA echo doppler color flow Study Info Indications - ELEVATED TROPONINS SEPSIS Complete two-dimensional, color flow and Doppler transthoracic echocardiogram is performed. History/Risk Factors Hypertension: Yes Dyslipidemia: Yes Congenital Heart Disease (CHD): No Peripheral Arterial Disease (PAD): No Myocardial Infarction (DE): No Chronic Lung Disease: No Obesity: Yes Renal Disease: No Coronary Artery Disease (CAD) Yes Congestive Heart Failure (CHF): Hx CHF Cardiomyopathy/LV Systolic Dysfunction: No Diabetes Mellitus: No COPD: On Meds Tobacco Use: Never Cerebrovascular Disease: No Family History: Coronary Artery Disease Deep Vein Thrombosis (DVT): None Dialysis: None Frailty Scale (CSHA): 4: Vulnerable Cardiac Arrest: No Summary 1. Left ventricular chamber dimension is normal. 2. Left ventricular systolic function is normal, estimated at 60-65%. 3. There is mildly increased left ventricular wall thickness. 4. Left ventricular septal wall motion is abnormal with septal motion related to bundle branch block. 5. The left ventricular diastolic function is grade I diastolic dysfunction. 6. Left atrial chamber dimension is severely enlarged. 7. Right atrial chamber dimension is mildly enlarged. 8. There is severe aortic valve sclerosis. 9. There is moderate aortic valve stenosis with a peak velocity of 344 cm/s, mean gradient of 23 mmHg, and aortic valve area of 1.3 cm2. 10. The mitral valve has not well visualized and severely calcified annulus. 11. Thickening of mitral valve leaflets suggests bioprosthetic mitral valve. 12. There is mild to moderate tricuspid valve regurgitation. 13. Mild pulmonary hypertension, estimated pulmonary arterial systolic pressure is 48 mmHg. 14. There is trace pulmonic regurgitation. 15. Normal inferior vena cava with <50% collapse upon inspiration consistent with elevated right atrial pressure, 10 mmHg. Left Ventricle E/e' 29 is significantly elevated. Left ventricular chamber dimension is normal. Left ventricular systolic function is normal, estimated at 60-65%. There is mildly increased left ventricular wall thickness. Left ventricular septal wall motion is abnormal with septal motion related to bundle branch block. The left ventricular diastolic function is grade I diastolic dysfunction. Right Ventricle Right ventricular chamber dimension is normal. Right ventricular systolic function is normal. Left Atria Left atrial chamber dimension is severely enlarged. Right Atria Right atrial chamber dimension is mildly enlarged. Aortic Valve The aortic valve is probable trileaflet. There is severe aortic valve sclerosis. There is moderate aortic valve stenosis with a peak velocity of 344 cm/s, mean gradient of 23 mmHg, and aortic valve area of 1.3 cm2. There is no aortic valve regurgitation. Pulmonic Valve There is trace pulmonic regurgitation. Mitral Valve
[2019-12-18] MEDS: IPRATROPIUM BR 0.02% INH SOLN 0.5 MG/2.5 ML VIAL INHALATION ×4 (02:36→21:25)
[2019-12-18 04:27] LABS: Alveolar/Arterial O2 Gradient 95.2 mmHg; Base Excess ABG 0.8 mEq/l (+/-2.0); Carboxyhemoglobin 0.3 % THb (0-2.0); Device VENTILATOR; Fractional Inspired Oxygen 35 %; HCO3 ABG 26.4 mEq/l (22.0-26.0); Methemoglobin ABG 0.2 %THb (0-1.5); Modified Allen's Test Pass; Oxygen Content ABG 14.1 %vol (16.0-22.0); Oxygen Saturation ABG 97.3 % (95.0-100.0); Oxyhemoglobin 96.2 % THb (90.0-100.0); PCO2 ABG 46.8 mmHg (35.0-45.0); PO2 ABG 99.9 mmHg (80.0-100.0); PO2 FiO2 Ratio Arterial Blood 2.85 %; Reduced Hemoglobin 3.3 %THb (0-5.0); Site Drawn RIGHT RADIAL; Total Hemoglobin 10.3 g/dL (12.0-18.0)
[2019-12-18 04:28] LABS: Arterial Blood Gas PEEP 5 cmH2O; Arterial Blood Gas Tidal Volume 370 ml; Arterial Blood Gas Vent Mode CMV; Arterial Blood Gas Ventilator rate 18 /MIN
[2019-12-18 06:24] LABS: Basophils Absolute Auto 0.1 K/mm3 (0.0-0.1); Basophils Percent Auto 0.4 % (0.2-1.2); Eosinophils Absolute Auto 0.2 K/mm3 (0-0.3); Eosinophils Percent Auto 0.6 % (0-4.4); Hematocrit 30.1 % (37.0-47.0); Immature Granulocyte Absolute 0.52 K/mm3 (0.00-0.031); Lymphocytes Absolute Auto 2.53 K/mm3 (0.9-3.2); Lymphocytes Percent Auto 9.6 % (18.3-44.2); Mean Corpuscular HGB Conc 29.9 g/dl (32-36); Mean Corpuscular Hemoglobin 27.9 pg (26-34); Mean Corpuscular Volume 93.2 fl (80-100); Mean Platelet Volume 11.3 fl (7.4-10.4); Monocytes Absolute Auto 2.3 K/mm3 (0.1-0.6); Monocytes Percent Auto 8.5 % (2.6-8.5); Neutrophils Absolute Auto 20.8 K/mm3 (1.3-6.7); Neutrophils Percent Auto 78.9 % (45.5-73.1); Platelet Count Result 210 k/mm3 (150-375); Red Blood Count 3.23 M/mm3 (4.2-5.4); Red Cell Distribution Width 15.6 % (11.5-14.5); White Blood Count 26.4 K/mm3 (4.5-10.0)
[2019-12-18 06:31] LABS: INR 1.7; Prothrombin Time 19.8 Seconds (11.1-14.7)
[2019-12-18 06:32] LABS: Partial Thromboplastin Time 41.5 SECONDS (22.3-36.8)
[2019-12-18 06:36] LABS: Lactic Acid 1.3 mmol/L (0.7-2.1)
[2019-12-18 06:45] LABS: Ovalocytes 1+ (NORMAL); Platelet Estimate Adequate (Adequate)
[2019-12-18] MEDS: DULoxetine HCL 60 MG CAPSULE.DR PO (07:15)
[2019-12-18] MEDS: PANTOPRAZOLE SODIUM IV 40 MG VIAL IV PUSH ×2 (07:15→20:24)
[2019-12-18] MEDS: ACETAMINOPHEN ELIXIR 325 MG/10.15 ML UDC 650 MG PO (07:35)
[2019-12-18] MEDS: SODIUM CHLORIDE 0.9% IV 1,000 ML 75 ML IV CONT (07:35)
[2019-12-18 07:45] LABS: Blood Urea Nitrogen 18 mg/dL (7-17); CRP > 45.0 mg/dL (<1.0); Calcium 7.8 mg/dL (8.4-10.2); Carbon Dioxide 29 mmol/L (22-30); Chloride 99 mmol/L (98-107); Estimated CRCL calculation 54 ml/min; Estimated Glomerular Filt Rate 50; Glucose 142 mg/dL (65-105); Magnesium 1.5 mg/dL (1.6-2.3); Phosphorus 4.1 mg/dL (2.5-4.5); Potassium 3.8 mmol/L (3.4-5.0); Sodium 137 mmol/L (137-145)
--- NOTE | 2019-12-18 08:23 | WPDINTPN ---
Progress Note: A&P Assessment and Plan (1) Acute respiratory failure: Qualifiers: Respiratory failure complication: unspecified whether with hypoxia or hypercapnia Qualified Code(s): J96.00 - Acute respiratory failure, unspecified whether with hypoxia or hypercapnia Code(s): J96.00 - Acute respiratory failure, unspecified whether with hypoxia or hypercapnia Status: Acute Assessment and Plan: Patient with septic shock, tachypneic, having difficulty breathing, blood gases were within normal limits, patient. Patient intubated on 12/17/2019 for impending respiratory failure likely related to septic shock, is rectal abscess/cellulitis -chest x-ray and ABGs reviewed post intubation, ventilator will be adjusted -continue bronchodilators -patient on vanc and Zosyn -sedation with fentanyl and Versed infusion, maintain RASS of 0 to -2, daily sedation vacation (2) Septic shock: Code(s): A41.9 - Sepsis, unspecified organism; R65.21 - Severe sepsis with septic shock Status: Acute Assessment and Plan: Septic shock most likely related to perirectal abscess, cellulitis -antibiotics as above -lactic acid has normalized -patient was adequately fluid resuscitated, continue maintenance IV fluids -remains febrile likely related to the abscess/cellulitis (3) Cellulitis and abscess of buttock: Code(s): L02.31 - Cutaneous abscess of buttock; L03.317 - Cellulitis of buttock Status: Acute Assessment and Plan: Cellulitis and abscess of the buttock/pain rectal abscess -12/17/2019 status post Large complicated left-sided perirectal abscess with necrotic skin and infected subcutaneous tissue requiring drainages well as excisional debridement of both skin and subcutaneous. -surgery following the patient closely (4) Elevated troponin: Code(s): R79.89 - Other specified abnormal findings of blood chemistry Status: Acute Assessment and Plan: Elevated troponin most likely related to ischemic demand -appreciate Cardiology evaluation who also think that this is secondary to septic shock and infection -echocardiogram has been ordered and pending (5) COPD (chronic obstructive pulmonary disease): Qualifiers: COPD type: unspecified COPD Qualified Code(s): J44.9 - Chronic obstructive pulmonary disease, unspecified Code(s): J44.9 - Chronic obstructive pulmonary disease, unspecified Status: Chronic Assessment and Plan: History of COPD -continue antibiotics and bronchodilators -no wheezing noted, and given infection, will hold off steroids (6) DVT prophylaxis: Code(s): Z29.9 - Encounter for prophylactic measures, unspecified Status: Acute Assessment and Plan: Patient on Eliquis at home, was held for incision and drainage. Will discuss with surgery regarding restarting Eliquis -continue SCDs Stress ulcer prophylaxis: Protonix (7) Dietary counseling and surveillance: Code(s): Z71.3 - Dietary counseling and surveillance Status: Acute Assessment and Plan: Will start tube feeds (8) Atrial flutter: Code(s): I48.92 - Unspecified atrial flutter Status: Acute Assessment and Plan: Patient has a history of atrial fibrillation, currently sinus rhythm, rate controlled. On Eliquis at home -discuss with surgery if okay to start Eliquis Additional Plan Will call family and updated Code status: Full code Critical care time spent: 41 minutes Due to a high probability of clinically significant, life threatening deterioration, the patient required my highest level of preparedness to intervene emergently and I personally spent this critical care time directly and personally managing the patient. This critical care time included obtaining a history; examining the patient; pulse oximetry; ordering and review of studies; arranging urgent treatment with development of a management plan; evaluation of patient's resp
[2019-12-18] MEDS: MAGNESIUM SULF 2 GM/WATER 50ML 2 GM/50 ML BAG IVPB (08:46)
--- NOTE | 2019-12-18 10:36 | PM.PNCARD ---
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 Would follow trop to peak She was on ELiquis previosuly with h/o of A fib. That is currently on hold given surgery for abscess. Would start ASA 81 mg given demand IN and history of CAD Patient primary freight service inspector is Dr Mccloud. Will transfer care back to him. 2D echo pending 09/25/19 Echo: EF 65-70%, mod LVH, diastolic dysfunction (E/e' 30), mod LAE, mod (KELLEE 1.2 cm2), possibly bioprosthetic MV which is not well seen with severe MAC, RVSP 45 mmHg. (2) Septic shock: Code(s): A41.9 - Sepsis, unspecified organism; R65.21 - Severe sepsis with septic shock Status: Acute (3) Cellulitis and abscess of buttock: Code(s): L02.31 - Cutaneous abscess of buttock; L03.317 - Cellulitis of buttock Status: Acute Assessment and Plan: surgery fu (4) COPD (chronic obstructive pulmonary disease): Qualifiers: COPD type: unspecified COPD Qualified Code(s): J44.9 - Chronic obstructive pulmonary disease, unspecified Code(s): J44.9 - Chronic obstructive pulmonary disease, unspecified Status: Chronic Assessment and Plan: management per mammographer (5) CVA (cerebral vascular accident): Code(s): I63.9 - Cerebral infarction, unspecified Status: Acute (6) Hypertension: Code(s): I10 - Essential (primary) hypertension Status: Acute Assessment and Plan: Now requiring pressors support Subjective Date/time seen: 12/18/19 10:36 Review of Systems Review of Systems: Narrative: Unable to obtain. patient is intubated. Exam Narrative: Exam Narrative: Sedated and intubated. Const: General: no acute distress Eyes: Sclera: sclerae normal Neck: Neck: no JVD Carotids: no bruits Resp: Auscultation: clear to auscultation bilaterally Cardio: Rate: regular rate and not tachycardic Rhythm: regular rhythm Heart sounds: no gallops, Murmur heart sound present and no rubs Other: 2/6 systolic murmur GI: GI Palp: Yes Soft to palpation and No Tenderness to palpation present (GI) Skin: General skin exam: normal color Neuro: Cranial nerves: Yes Normal hearing present Extrem: General: normal to inspection and no edema Psych: Other: Sedated Objective Data Vital Signs Vital Signs: Vital Signs - 24 hr 12/17/19 10:37 12/17/19 11:00 12/17/19 11:27 Temperature 39.1 C H Pulse Rate 121 H Respiratory Rate 24 H Blood Pressure 87/34 L Pulse Oximetry 12/17/19 11:30 12/17/19 11:49 12/17/19 12:00 Temperature 38.5 C H Pulse Rate 138 H Respiratory Rate 23 H Blood Pressure 91/36 L 82/39 L 88/36 L Pulse Oximetry 99 12/17/19 12:27 12/17/19 13:08 12/17/19 14:00 Temperature 37.7 C H 37.3 C Pulse Rate 130 H Respiratory Rate 26 H Blood Pressure 100/78 252/99 H Pulse Oximetry 96 12/17/19 14:04 12/17/19 14:15 12/17/19 14:27 Temperature 37.3 C Pulse Rate 139 H 131 H 128 H Respiratory Rate 21 H 18 Blood Pressure 117/43 L Pulse Oximetry 96 97 12/17/19 14:30 12/17/19 14:40 12/17/19 14:45 Temperature 37.1 C 37.1 C Pulse Rate 127 H 126 H 126 H Respiratory Rate 23 H 21 H 20 Blood Pressure 97/33 L 102/43 L Pulse Oximetry 98 98 12/17/19 15:00 12/17/19 15:26 12/17/19 15:29 Temperature 37.0 C Pulse Rate 122 H 121 H 117 H Respiratory Rate 21 H Blood Pressure 102/41 L 100/39 L 100/39 L Pulse Oximetry 99 12/17/19 15:31 12/17/19 15:38
--- NOTE | 2019-12-18 10:53 | PCDIET ---
ICU Rounding Note: MD ordered to start tube feedings as recommended: Vital 1.2 at goal rate of 60mL/hr x 22 hours/day with Pro-Stat flush BID for 1784kcal, 129g protein and 1070mL free water. Last recorded weight is 116.7kg which is stable. Bowel Motility: No documented BM. Bowel sounds active. Labs Reviewed: Hgb (9.0), Hct (30.1), Glu (142), BUN (18), Cr (1.1), Mg (1.5) Meds Noted: Albuterol, Levophed, Fentanyl, Protonix, Vancomycin, Atrovent, Phenylephrine, Versed, Zosyn, NS at 75mL/hr Additional Notes: s/p I&D of perirectal abscess on 12/17/19. No other skin issues reported. Following daily in ICU rounds. Assessing/reassessing every Sunday/Sunday.
[2019-12-18] MEDS: ASPIRIN 81 MG CHEWABLE TABLET FEED TUBE (11:44)
--- NOTE | 2019-12-18 11:46 | PM.PNGS ---
Progress Note: A&P Assessment and Plan (1) Perirectal abscess: Code(s): K61.1 - Rectal abscess Status: Acute Assessment and Plan: S/p complex I&D of perirectal abscess. Will keep dressing in place and plan on changing this tomorrow to assess the wound. Continue IV antibiotics. Intraoperative cultures pending. (2) Acute respiratory failure: Qualifiers: Respiratory failure complication: unspecified whether with hypoxia or hypercapnia Qualified Code(s): J96.00 - Acute respiratory failure, unspecified whether with hypoxia or hypercapnia Code(s): J96.00 - Acute respiratory failure, unspecified whether with hypoxia or hypercapnia Status: Acute Assessment and Plan: Patient intubated and sedated. Continue care per Shot Polisher. (3) Septic shock: Code(s): A41.9 - Sepsis, unspecified organism; R65.21 - Severe sepsis with septic shock Status: Acute Assessment and Plan: Received IV fluid resuscitation. Still on vasopressor support. WBC up to 26,400 today after source control. Blood cultures pending. Intraoperative cultures pending. Continue broad-spectrum IV abx. Continue care per Shot Polisher. (4) Anticoagulant long-term use: Code(s): Z79.01 - joint terminal attack controller (current) use of anticoagulants Status: Acute Assessment and Plan: Continue to hold anticoagulation for today. Will assess wound tomorrow and decide from there on restarting. (5) Atrial flutter: Code(s): I48.92 - Unspecified atrial flutter Status: Acute (6) COPD (chronic obstructive pulmonary disease): Qualifiers: COPD type: unspecified COPD Qualified Code(s): J44.9 - Chronic obstructive pulmonary disease, unspecified Code(s): J44.9 - Chronic obstructive pulmonary disease, unspecified Status: Chronic Additional Plan Discussed the patient's case and plan of care with Dr. Lr. Subjective Subjective Date/Time Seen: 12/18/19 11:46 Post Op day: 1 (I&D of complex perirectal abscess) Interval history: Patient intubated and sedated. Seen in ICU. Currently still on vasopressors, neosynephrine. Tmax of 37.8C this morning since surgery. Review of Systems Review of Systems: ROS unobtainable: Yes unobtainable due to endotracheal tube Exam Const: General: no acute distress and other (sedated and on mechanical ventilator) Nutritional Appearance: obese Orientation/consciousness: Other orientation findings (sedated) Limitations: physical limitations and other limitations Resp: Auscultation: clear to auscultation bilaterally Cardio: Rate: regular rate Rhythm: regular rhythm GI: Inspection: obesity GI Palp: Yes Soft to palpation Auscultation: normal bowel sounds Urinary Catheter: Urinary Catheter: patent and draining Skin: General skin exam: normal color Other: Unable to assess dressing, patient sedated/intubated and unable to turn. Nurse will assess with next turn and call if dressing is saturated or she has any concerns. Neuro: General: other (DIDI d/t being sedated/intubated) Extrem: General: normal to inspection and no clubbing, cyanosis or edema Objective Data Vital Signs Vital Signs: Vital Signs - 24 hr 12/17/19 11:49 12/17/19 12:00 12/17/19 12:27 Temperature 38.5 C H 37.7 C H Pulse Rate 138 H Respiratory Rate 23 H Blood Pressure 82/39 L 88/36 L Pulse Oximetry 99 12/17/19 13:08 12/17/19 14:00 12/17/19 14:04 Temperature 37.3 C Pulse Rate 130 H 139 H Respiratory Rate 26 H Blood Pressure 100/78 252/99 H Pulse Oximetry 96 96 12/17/19 14:15 12/17/19 14:27 12/17/19 14:30 Temperature 37.3 C 37.1 C Pulse Rate 131 H 128 H 127 H Respiratory Rate 21 H 18 23 H Blood Pressure 117/43 L 97/33 L Pulse Oximetry 97 98 12/17/19 14:40 12/17/19 14:45 12/17/19 15:00 Temperature 37.1 C 37.0 C Pulse Rate 126 H 126 H 122 H Respiratory Rate 21 H 20 21 H Blood Pressure 102/43 L 102/41 L Pulse Oximetry 98 99 12/17/19 15:26
--- NOTE | 2019-12-18 15:17 | WPDANESPN ---
Anes - Prog Note Post-Op Date/Time: 12/18/19 15:17 Cardiovascular status: other (management per ICU team) Respiratory status: other (pt intubated/sedated) Airway patency: other (pt intubated/sedated) Mental status: other (pt intubated sedated) Post-Op hydration status: other (management per ICU team) Vital Signs: Last Vital Signs Temp 37.2 C 12/18/19 08:35 Pulse 82 12/18/19 15:15 Resp 18 12/18/19 15:15 BP 116/54 L 12/18/19 14:23 Pulse Ox 100 12/18/19 15:15 I/O: Intake & Output 12/17/19 12/18/19 12/18/19 23:59 07:59 15:59 Intake Total 355 1374 327 Output Total 300 875 Balance 55 499 327 Laboratory Tests 12/18/19 03:48 12/18/19 03:49 12/18/19 12/18/19 12/18/19 03:48 03:48 03:49 WBC 26.4 H RBC 3.23 L Hgb 9.0 L Hct 30.1 L MCV 93.2 MCH 27.9 MCHC 29.9 L RDW 15.6 H Plt Count 210 MPV 11.3 H Immature Gran % (Auto) 2.0 H Neut % (Auto) 78.9 H Lymph % (Auto) 9.6 L [place] % (Auto) 8.5 Eos % (Auto) 0.6 Baso % (Auto) 0.4 Lymph # (Auto) 2.53 [place] # (Auto) 2.3 H Eos # (Auto) 0.2 Baso # (Auto) 0.1 Abs Immat Gran (auto) 0.52 H Absolute Neuts (auto) 20.8 H Absolute Nucleated RBC 0.0 Nucleated RBC % 0.0 Platelet Estimate Adequate Ovalocytes 1+ PT 19.8 H INR 1.7 APTT 41.5 H Puncture Site ABG pH ABG pCO2 ABG pO2 ABG PO2/FiO2 Ratio ABG HCO3 ABG O2 Saturation ABG O2 Content ABG Base Excess A-a Gradient Oxyhemoglobin Carboxyhemoglobin Methemoglobin Reduced Hemoglobin Total Hemoglobin O2 Delivery Device O2 Liters/Min Minute Volume Vent Rate Vent Mode FiO2 Tidal Volume PEEP Peak Inspir Pressure Pressure Support Sodium Potassium Chloride Carbon Dioxide BUN Creatinine Estim Creat Clear Calc Estimated GFR Glucose Lactic Acid 1.3 Calcium Phosphorus Magnesium C-Reactive Protein 12/18/19 12/18/19 03:49 03:58 WBC RBC Hgb Hct MCV MCH MCHC RDW Plt Count MPV Immature Gran % (Auto) Neut % (Auto) Lymph % (Auto) [place] % (Auto) Eos % (Auto) Baso % (Auto) Lymph # (Auto) [place] # (Auto) Eos # (Auto) Baso # (Auto) Abs Immat Gran (auto) Absolute Neuts (auto) Absolute Nucleated RBC Nucleated RBC % Platelet Estimate Ovalocytes PT INR APTT Puncture Site Right radial ABG pH 7.370 ABG pCO2 46.8 H ABG pO2 99.9 ABG PO2/FiO2 Ratio 2.85 ABG HCO3 26.4 H ABG O2 Saturation 97.3 ABG O2 Content 14.1 L ABG Base Excess 0.8 A-a Gradient 95.2 Oxyhemoglobin 96.2 Carboxyhemoglobin 0.3 Methemoglobin 0.2 Reduced Hemoglobin 3.3 Total Hemoglobin 10.3 L O2 Delivery Device Ventilator O2 Liters/Min Not Reportable Minute Volume Not Reportable Vent Rate 18 Vent Mode Cmv FiO2 35 Tidal Volume 370 PEEP 5 Peak Inspir Pressure Not Reportable Pressure Support Not Reportable Sodium 137 Potassium 3.8 Chloride 99 Carbon Dioxide 29 BUN 18 H Creatinine 1.10 H Estim Creat Clear Calc 54 Estimated GFR 50 L Glucose 142 H Lactic Acid Calcium 7.8 L Phosphorus 4.1 Magnesium 1.5 L C-Reactive Protein > 45.0 H Microbiology 12/17/19 01:59 Blood Blood Culture - Preliminary 12/17/19 01:59 Blood Blood Culture - Preliminary 12/17/19 13:31 Buttock Anaerobic Culture - Preliminary Patient Feedback: Patient satisfied with anesthetic care.
--- NOTE | 2019-12-18 15:31 | PM.IMPN ---
Progress Note: A&P Assessment and Plan (1) Septic shock: Code(s): A41.9 - Sepsis, unspecified organism; R65.21 - Severe sepsis with septic shock Status: Acute Assessment and Plan: Due to cellulitis and/or abscess of buttock. Continue broad-spectrum antibiotic coverage. Await blood and wound cultures. Continue IV fluid hydration. Wean pressors as tolerated. per agricultural and forestry supervisor (2) Cellulitis and abscess of buttock: Code(s): L02.31 - Cutaneous abscess of buttock; L03.317 - Cellulitis of buttock Status: Acute Assessment and Plan: The patient has been started on Zosyn and vancomycin. Blood cultures are pending. Wound cultures from outside facility are pending. Blood cultures from outside facility are negative to date. Patient received 2 L normal saline in the ER and was started on Levophed. general surgery I&D ed 12/17 and further cultures obtained (3) Elevated troponin: Code(s): R79.89 - Other specified abnormal findings of blood chemistry Status: Acute Assessment and Plan: secondary to demand ischemia from the patient's septic shock and hypotension. Will continue to trend troponins and monitor telemetry. Not secondary to acute plaque rupture. (4) Anemia: Code(s): D64.9 - Anemia, unspecified Status: Acute Assessment and Plan: follow and obtain Fe studies with retic Subjective Date/time seen: 12/18/19 15:31 Interval history: Date of visit 12/17. Hypertensive white female with history diastolic heart failure admitted with cellulitis abscess perirectal and sepsis with hypotension. Presently mechanically ventilated and on pressors in the ICU Exam Narrative: Exam Narrative: PHYSICAL EXAM: Blood pressure 90/50 pulse 78 saturating 99% on FiO2 of 60% in fee per 5 General: Acutely ill-appearing, morbidly obese HEENT: , no scleral icterus, et tube secured Neck: Large neck circumference no significant lymphadenopathy, Respiratory: Clear to auscultation bilaterally Cardiovascular: Systolic murmur, sinus tachycardia, 1+ bilateral radial pulses, 2+ bilateral pedal pulses Gastrointestinal: Obese, nontender, nondistended, positive bowel sounds Skin: wound left buttock now covered after I&D Extremities: Chronic venous stasis changes ,mild bilateral lower extremities, no pitting edema, Neurological: sedated on vent Objective Data Vital Signs Vital Signs: Vital Signs - 24 hr 12/17/19 15:38 12/17/19 15:45 12/17/19 16:00 Temperature 37.1 C Pulse Rate 123 H 125 H 120 H Respiratory Rate 21 H 18 Blood Pressure 86/38 L 91/52 L Pulse Oximetry 99 100 12/17/19 16:27 12/17/19 16:39 12/17/19 16:56 Temperature Pulse Rate 113 H 109 H 97 Respiratory Rate Blood Pressure 86/41 L 92/41 L 84/42 L Pulse Oximetry 12/17/19 17:10 12/17/19 17:38 12/17/19 18:00 Temperature Pulse Rate 97 88 88 Respiratory Rate 18 Blood Pressure 98/37 L 95/43 L Pulse Oximetry 100 100 12/17/19 18:02 12/17/19 20:00 12/17/19 20:04 Temperature 37.1 C Pulse Rate 89 81 88 Respiratory Rate 16 Blood Pressure 95/43 L 119/59 L 112/53 L Pulse Oximetry 100 12/17/19 20:10 12/17/19 20:29 12/17/19 20:38 Temperature Pulse Rate 75 76 77 Respiratory Rate 18 18 Blood Pressure Pulse Oximetry 100 12/17/19 22:00 12/17/19 23:15 12/18/19 00:00 Temperature 37.1 C Pulse Rate 76 76 74 Respiratory Rate 18 18 Blood Pressure 101/67 110/42 L Pulse Oximetry 100 100 100 12/18/19 02:00 12/18/19 02:12 12/18/19 02:36 Temperature Pulse Rate 78 73 78 Respiratory Rate 13 18 Blood Pressure 122/69 Pulse Oximetry 100 100 12/18/19 02:42 12/18/19 04:00 12/18/19 04:31 Temperature 36.9 C Pulse Rate 73 79 83 Respiratory Rate 18 18 Blood Pressure 135/65 Pulse Oximetry 100 100 12/18/19 06:00 12/18/19 06:10 12/18/19 06:20 Temperature Pulse Rate 78 84 83 Respiratory Rate 15 Blood Pressure 138/70 13
[2019-12-18] MEDS: ALBUTEROL SULFATE NEB 2.5 MG/0.5 ML INH 1.25 MG INHALATION (21:25)
[2019-12-18 23:34] LABS: Glucose Point of Care 159 (65-105)
[2019-12-19] VITALS (59 sets, daily range): BP systolic 84–176; BP diastolic 41–87; PULSE 51–98; RESP 13–26; TEMP 36.7–37.2; O2SAT 93–100
[2019-12-19] MEDS: IPRATROPIUM BR 0.02% INH SOLN 0.5 MG/2.5 ML VIAL INHALATION ×4 (02:32→19:59)
[2019-12-19 04:24] LABS: Alveolar/Arterial O2 Gradient 99.3 mmHg; Base Excess ABG 3.3 mEq/l (+/-2.0); Carboxyhemoglobin 0.3 % THb (0-2.0); Fractional Inspired Oxygen 35 %; HCO3 ABG 28.9 mEq/l (22.0-26.0); Methemoglobin ABG 0.3 %THb (0-1.5); Oxygen Saturation ABG 96.9 % (95.0-100.0); Oxyhemoglobin 95.4 % THb (90.0-100.0); PCO2 ABG 49.4 mmHg (35.0-45.0); PO2 ABG 92.8 mmHg (80.0-100.0); PO2 FiO2 Ratio Arterial Blood 2.65 %; Site Drawn RIGHT RADIAL; Total Hemoglobin 9.6 g/dL (12.0-18.0); pH ABG 7.385 (7.350-7.450)
[2019-12-19 04:25] LABS: Device VENTILATOR; Modified Allen's Test Pass
[2019-12-19 04:27] LABS: Arterial Blood Gas Ventilator rate 18 /MIN
[2019-12-19 04:28] LABS: Arterial Blood Gas PEEP 5 cmH2O; Arterial Blood Gas Tidal Volume 370 ml; Arterial Blood Gas Vent Mode CMV
[2019-12-19 04:55] LABS: Basophils Percent Auto 0.2 % (0.2-1.2); Eosinophils Absolute Auto 0.2 K/mm3 (0-0.3); Eosinophils Percent Auto 1.3 % (0-4.4); Hematocrit 27.2 % (37.0-47.0); Hemoglobin 8.1 g/dL (12.0-15.0); Immature Granulocyte Absolute 0.52 K/mm3 (0.00-0.031); Lymphocytes Absolute Auto 1.86 K/mm3 (0.9-3.2); Lymphocytes Percent Auto 10.6 % (18.3-44.2); Mean Corpuscular HGB Conc 29.8 g/dl (32-36); Mean Corpuscular Hemoglobin 27.2 pg (26-34); Mean Corpuscular Volume 91.3 fl (80-100); Mean Platelet Volume 10.9 fl (7.4-10.4); Monocytes Absolute Auto 1.7 K/mm3 (0.1-0.6); Monocytes Percent Auto 9.8 % (2.6-8.5); Neutrophils Absolute Auto 13.1 K/mm3 (1.3-6.7); Neutrophils Percent Auto 75.1 % (45.5-73.1); Nucleated Red Blood Cells Perc 0.1 % (0.0-0.2); Platelet Count Result 202 k/mm3 (150-375); Red Blood Count 2.98 M/mm3 (4.2-5.4); Red Cell Distribution Width 15.5 % (11.5-14.5); White Blood Count 17.5 K/mm3 (4.5-10.0)
[2019-12-19 05:16] LABS: Blood Urea Nitrogen 12 mg/dL (7-17); Calcium 7.6 mg/dL (8.4-10.2); Carbon Dioxide 30 mmol/L (22-30); Chloride 100 mmol/L (98-107); Estimated CRCL calculation 73 ml/min; Estimated Glomerular Filt Rate > 60; Glucose 174 mg/dL (65-105); Magnesium 1.8 mg/dL (1.6-2.3); Phosphorus 3.1 mg/dL (2.5-4.5); Potassium 3.5 mmol/L (3.4-5.0); Sodium 136 mmol/L (137-145)
[2019-12-19] MEDS: ACETAMINOPHEN ELIXIR 325 MG/10.15 ML UDC 650 MG PO (05:18)
[2019-12-19 05:44] LABS: CRP 36.8 mg/dL (<1.0)
[2019-12-19 06:30] LABS: Hypochromasia 1+ (NORMAL); Ovalocytes 1+ (NORMAL); Platelet Estimate Adequate (Adequate)
[2019-12-19] MEDS: PANTOPRAZOLE SODIUM IV 40 MG VIAL IV PUSH (07:47)
[2019-12-19] MEDS: ASPIRIN 81 MG CHEWABLE TABLET FEED TUBE (07:50)
--- NOTE | 2019-12-19 08:01 | PM.PNCARD ---
Progress Note: A&P Assessment and Plan (1) Elevated troponin: Code(s): R79.89 - Other specified abnormal findings of blood chemistry Status: Acute Assessment and Plan: Likely due to type II infarct related to septic shock/infection. No ACS based on no wall motion abnormality on echo and no ischemia on EKG. Check troponin to see if peaked this morning. On aspirin and Atorvastatin. If troponin peaks, no further cardiac workup is needed. (2) Septic shock: Code(s): A41.9 - Sepsis, unspecified organism; R65.21 - Severe sepsis with septic shock Status: Acute Assessment and Plan: Wean off Neosynephrine as tolerated. On IV antibiotics. Wheel Adjuster following. (3) Cellulitis and abscess of buttock: Code(s): L02.31 - Cutaneous abscess of buttock; L03.317 - Cellulitis of buttock Status: Acute (4) COPD (chronic obstructive pulmonary disease): Qualifiers: COPD type: unspecified COPD Qualified Code(s): J44.9 - Chronic obstructive pulmonary disease, unspecified Code(s): J44.9 - Chronic obstructive pulmonary disease, unspecified Status: Chronic (5) CVA (cerebral vascular accident): Code(s): I63.9 - Cerebral infarction, unspecified Status: Acute (6) Hypertension: Code(s): I10 - Essential (primary) hypertension Status: Acute (7) CAD (coronary artery disease), autologous vein bypass graft: Code(s): I25.810 - Atherosclerosis of coronary artery bypass graft(s) without angina pectoris Status: Acute Assessment and Plan: Thickened mitral valve and MAC suggest mitral valve repair or bioprosthesis. (8) Morbid obesity with BMI of 45.0-49.9, adult: Code(s): E66.01 - Morbid (severe) obesity due to excess calories; Z68.42 - Body mass index (BMI) 45.0-49.9, adult Status: Acute (9) Obstructive sleep apnea: Code(s): G47.33 - Obstructive sleep apnea (adult) (pediatric) Status: Acute (10) Aortic stenosis, moderate: Code(s): I35.0 - Nonrheumatic aortic (valve) stenosis Status: Acute (11) Diastolic heart failure: Code(s): I50.30 - Unspecified diastolic (congestive) heart failure Status: Acute Subjective Date/time seen: 12/19/19 08:01 69 yr old woman who's PCP is Sridevi Go NP who I saw once in September 2019 in my office for consult. She has a history of CABG x 1 vessel in [place] in 1999, stroke in Apr [address] [facility] (caused partial right eye blindness and right leg weakness), hypertension, diastolic heart failure, aortic stenosis, dyslipidemia, atrial flutter s/p ablation in Jan 2019. She was admitted on 12/17/19 for sepsis and septic shock, intubated on mechanical ventilation and on vasopressor (Neosynephrine now). Her source for sepsis is buttock abscess/cellulitis s/p debridement and drainage. She is on broad spectrum antibiotics. Troponin was mildly elevated to 0.2. Echo shows no wall motion abnormalities and EKG shows no ischemic changes. Cardiovascular studies: 12/18/19 Echo: Left ventricular systolic function is normal, estimated at 60-65%, mildly increased left ventricular wall thickness. Left ventricular septal wall motion is abnormal with septal motion related to bundle branch block. The left ventricular diastolic function is grade I diastolic dysfunction (E/e' 29). Left atrial chamber dimension is severely enlarged. Right atrial chamber dimension is mildly enlarged. There is severe aortic valve sclerosis. There is moderate aortic valve stenosis with a peak velocity of 344 cm/s, mean gradient of 23 mmHg, and aortic valve area of 1.3 cm2. The mitral valve has not well visualized and severely calcified annulus. Thickening of mitral valve leaflets suggests bioprosthetic mitral valve. There is mild to moderate tricuspid valve regurgitation. Mild pulmonary hypertension, estimated pulmonary arterial systolic pressure is 48 mmHg. 09/24/19 EKG: SInus rhythm, RAD, delayed R/S transition, cons
--- NOTE | 2019-12-19 09:05 | WPDINTPN ---
Progress Note: A&P Assessment and Plan (1) Acute respiratory failure: Qualifiers: Respiratory failure complication: unspecified whether with hypoxia or hypercapnia Qualified Code(s): J96.00 - Acute respiratory failure, unspecified whether with hypoxia or hypercapnia Code(s): J96.00 - Acute respiratory failure, unspecified whether with hypoxia or hypercapnia Status: Acute Assessment and Plan: Patient intubated on 12/17/2019 for impending respiratory failure likely related to septic shock. -chest x-ray and ABGs reviewed. Chest x-ray showing bilateral airspace disease. She sedated with Versed and fentanyl. Versed will be weaned today and when she is more awake and following command then she will be placed on SBT trial for possible extubation today. She did well with SBT trial and currently being extubated. ABG will be repeated 4 hours after extubation. She does not have any significant secretions. -continue bronchodilators -sedation with fentanyl and Versed infusion, maintain RASS of 0 to -2, daily sedation vacation. Sedatives has been weaned. Speech evaluation. Keep her NPO until speech service clearance. Encourage deep breathing and cough. PT OT services will be consulted. (2) Septic shock: Code(s): A41.9 - Sepsis, unspecified organism; R65.21 - Severe sepsis with septic shock Status: Acute Assessment and Plan: Septic shock most likely related to perirectal abscess and cellulitis. -continue Zosyn and vancomycin. Deescalate antibiotics depending upon culture result. Wound culture from the or has been growing Staph aureus and group B Streptococcus. Sensitivities are pending. -lactic acid has normalized -patient was adequately fluid resuscitated, continue maintenance IV fluids. Wean Roberto Carlos-Synephrine if tolerated. Currently she is requiring 140 mcg. (3) Cellulitis and abscess of buttock: Code(s): L02.31 - Cutaneous abscess of buttock; L03.317 - Cellulitis of buttock Status: Acute Assessment and Plan: Cellulitis and abscess of the buttock/pain rectal abscess -12/17/2019 status post drainage and incision/debridement. Large complicated left-sided perirectal abscess with necrotic skin and infected subcutaneous tissue requiring drainages well as excisional debridement of both skin and subcutaneous. -surgery following the patient closely. Wound check and changing of dressing planned for today. (4) Elevated troponin: Code(s): R79.89 - Other specified abnormal findings of blood chemistry Status: Acute Assessment and Plan: Elevated troponin most likely related to ischemic demand -appreciate Cardiology evaluation. Echo with ejection fraction of 60-65% and diastolic congestive heart failure. Moderate aortic stenosis. (5) COPD (chronic obstructive pulmonary disease): Qualifiers: COPD type: unspecified COPD Qualified Code(s): J44.9 - Chronic obstructive pulmonary disease, unspecified Code(s): J44.9 - Chronic obstructive pulmonary disease, unspecified Status: Chronic Assessment and Plan: History of COPD -continue antibiotics and bronchodilators -no wheezing noted. Hold of systemic steroids. (6) DVT prophylaxis: Code(s): Z29.9 - Encounter for prophylactic measures, unspecified Status: Acute Assessment and Plan: Patient on Eliquis at home, was held for incision and drainage. Surgery service is planning to do wound check and dressing change today. If she does not have any significant bleeding from the wound then she can be started on Eliquis today. Stress ulcer prophylaxis: Protonix (7) Dietary counseling and surveillance: Code(s): Z71.3 - Dietary counseling and surveillance Status: Acute Assessment and Plan: She is currently on tube feed. Will hold off tube feed for possible extubation today. (8) Atrial flutter: Code(s): I48.92 - Unspecified atrial flutter Status: Ac
[2019-12-19 09:23] LABS: Troponin I 0.086 ng/mL (0.000-0.034)
--- NOTE | 2019-12-19 09:29 | ECG_ITS ---
Measurements Intervals [place] Rate: 51 P: 63 ND: 196 QRS: 73 QRSD: 129 T: 44 QT: 485 QTc: 451 Interpretive Statements SINUS BRADYCARDIA RIGHT BUNDLE BRANCH BLOCK CONSIDER INFERIOR INFARCT, AGE INDETERMINATE T WAVE ABNORMALITY IN ANTERIOR LEADS- CONSIDER ANTERIOR ISCHEMIA BASELINE ARTIFACT- I, III, AVL ABNORMAL ECG Electronically Signed On 12-19-2019 11:36:41 CDT by Hiren Mccloud D.O.
--- NOTE | 2019-12-19 09:37 | ECG_ITS ---
Measurements Intervals [place] Rate: 51 P: [place]: 0 QRS: 157 QRSD: 177 T: -14 QT: 531 QTc: 494 Interpretive Statements SINUS OR ECTOPIC ATRIAL BRADYCARDIA WITH SHORT [place] INTERVAL RIGHT BUNDLE BRANCH BLOCK LEFT POSTERIOR FASCICULAR BLOCK ABNORMAL ECG Electronically Signed On 12-19-2019 11:38:01 CDT by Hiren Mccloud D.O.
--- NOTE | 2019-12-19 10:46 | PCDIET ---
Nutrition Follow-Up Complete: Nutrition Diagnosis: Inadequate oral intake related to oral intubation as evidenced by NPO status. Nutrition Goal: Patient to meet estimated nutritional needs. Goal in progress. Tube feedings currently on hold for SBT. RN reports tube feedings were held for a period overnight due to abdominal distention, but patient since had 3 large BMs. Tube feedings to resume if unable to extubate patient. Last recorded weight is 122 kg which is increased from last review. +I/O. Labs Reviewed: Hgb (8.1), Hct (27.2), Glu (174), Na (136) Meds Noted: Albuterol, Fentanyl, Atrovent, Versed, Protonix, Phenylephrine, Zosyn, Vancomycin Additional Notes: Packing on buttock wound to be changed today. No other skin issues reported. Will continue to monitor with same goal. Nutrition Monitoring and Evaluation: Follow up every Sunday/Sunday. Follow daily in ICU rounds.
[2019-12-19 11:27] LABS: Vancomycin Trough 10.5 ug/mL (10.0-20.0)
--- NOTE | 2019-12-19 12:17 | PM.PNGS ---
Progress Note: A&P Assessment and Plan (1) Perirectal abscess: Code(s): K61.1 - Rectal abscess Status: Acute Assessment and Plan: Continue daily packing changes and IV antibiotics Wean and extubate per CCP Wean pressors per CCP OK to resume Eliquis (2) Septic shock: Code(s): A41.9 - Sepsis, unspecified organism; R65.21 - Severe sepsis with septic shock Status: Acute (3) Morbid obesity with BMI of 45.0-49.9, adult: Code(s): E66.01 - Morbid (severe) obesity due to excess calories; Z68.42 - Body mass index (BMI) 45.0-49.9, adult Status: Acute Subjective Subjective Date/Time Seen: 12/19/19 12:17 Post Op day: 2 Interval history: Patient remains intubated. On spontaneous breathing trial with possible extubation today. Phenylephrine drip weaning down. Dressings have been reinforced due to saturation but packing not changed yet. No other significant events per nursing. Exam GI: Other: Packing changed. Wound has small amount of exudate and necrotic debris but mostly healthy tissue without any further purulent drainage. Sabina drain in place from rectum to abscess wound. 1 iodoform gauze packed in wound. Objective Data Vital Signs Vital Signs: Vital Signs - 24 hr 12/18/19 13:00 12/18/19 14:00 12/18/19 14:23 Temperature Pulse Rate 72 67 65 Respiratory Rate 18 Blood Pressure 107/60 111/59 L 116/54 L Pulse Oximetry 100 12/18/19 14:28 12/18/19 14:32 12/18/19 14:37 Temperature Pulse Rate 74 73 69 Respiratory Rate 18 18 Blood Pressure Pulse Oximetry 100 12/18/19 15:15 12/18/19 15:22 12/18/19 15:36 Temperature Pulse Rate 82 79 73 Respiratory Rate 18 18 Blood Pressure 91/50 L 85/62 L Pulse Oximetry 100 99 12/18/19 15:51 12/18/19 16:00 12/18/19 16:01 Temperature 36.9 C Pulse Rate 70 69 69 Respiratory Rate 18 Blood Pressure 104/55 L 128/57 L Pulse Oximetry 100 12/18/19 17:50 12/18/19 17:51 12/18/19 18:00 Temperature Pulse Rate 82 74 75 Respiratory Rate 16 Blood Pressure 150/76 H Pulse Oximetry 100 100 12/18/19 19:50 12/18/19 19:57 12/18/19 20:00 Temperature 37.1 C Pulse Rate 69 74 77 Respiratory Rate 18 18 Blood Pressure 95/66 L 95/66 L Pulse Oximetry 99 100 12/18/19 21:00 12/18/19 21:25 12/18/19 21:36 Temperature Pulse Rate 84 77 78 Respiratory Rate 18 18 Blood Pressure 93/44 L Pulse Oximetry 12/18/19 22:00 12/18/19 22:30 12/18/19 22:31 Temperature Pulse Rate 82 80 81 Respiratory Rate 18 18 Blood Pressure 137/64 114/59 L 114/59 L Pulse Oximetry 100 99 12/18/19 23:15 12/18/19 23:47 12/19/19 00:00 Temperature 37.1 C Pulse Rate 77 89 Respiratory Rate Blood Pressure Pulse Oximetry 98 12/19/19 00:02 12/19/19 00:16 12/19/19 01:01 Temperature Pulse Rate 93 79 86 Respiratory Rate 18 24 H 15 Blood Pressure 97/60 L 113/64 109/58 L Pulse Oximetry 100 97 93 12/19/19 02:00 12/19/19 02:31 12/19/19 02:33 Temperature Pulse Rate 78 82 83 Respiratory Rate 19 19 Blood Pressure 118/59 L Pulse Oximetry 100 12/19/19 02:40 12/19/19 04:00 12/19/19 04:26 Temperature 36.7 C Pulse Rate 82 65 66 Respiratory Rate 18 18 Blood Pressure 123/53 L Pulse Oximetry 100 100 12/19/19 06:00 12/19/19 06:01 12/19/19 07:16 Temperature Pulse Rate 69 69 53 L Respiratory Rate 21 H 19 Blood Pressure 107/44 L Pulse Oximetry 99 12/19/19 07:45 12/19/19 07:52 12/19/19 07:53 Temperature Pulse Rate 52 L 55 L 55 L Respiratory Rate 18 19 Blood Pressure Pulse Oximetry 99 12/19/19 08:00 12/19/19 08:30 12/19/19 08:33 Temperature 36.8 C Pulse Rate 61 54 L 57 L Respiratory Rate 18 18 Blood Pressure 144/50 H 102/67 Pulse Oximetry 100 12/19/19 08:34 12/19/19 08:47 12/19/19 08:48 Temperature Pulse Rate 53 L 51 L 51 L Respiratory Rate 18 18 Blood Pressure 108/57 L Pulse Oximetry 12/19/19 09:09
[2019-12-19 13:14] LABS: Alveolar/Arterial O2 Gradient 54.5 mmHg; Base Excess ABG 3.7 mEq/l (+/-2.0); Device VENTILATOR; Fractional Inspired Oxygen 30 %; HCO3 ABG 28.9 mEq/l (22.0-26.0); Modified Allen's Test Pass; Oxygen Content ABG 13.2 %vol (16.0-22.0); Oxygen Saturation ABG 97.8 % (95.0-100.0); Oxyhemoglobin 96.4 % THb (90.0-100.0); PCO2 ABG 46.9 mmHg (35.0-45.0); PO2 ABG 104.3 mmHg (80.0-100.0); PO2 FiO2 Ratio Arterial Blood 3.48 %; Site Drawn LEFT RADIAL; Total Hemoglobin 9.6 g/dL (12.0-18.0); pH ABG 7.408 (7.350-7.450)
[2019-12-19 13:15] LABS: Arterial Blood Gas PEEP 5 cmH2O; Arterial Blood Gas Pressure Support 5 cmH2O; Arterial Blood Gas Vent Mode SPONTANEOUS
[2019-12-19] MEDS: MORPHINE SULFATE 2 MG/ML INJ IV PUSH ×4 (14:41→22:05)
--- NOTE | 2019-12-19 14:47 | PCSTNOTE ---
Patient bedside evaluation not able to be completed per nursing request; patient is not medically stable enough. ST to check on patient tomorrow and hopefully complete.
--- NOTE | 2019-12-19 15:37 | PCOTNOTE ---
Attempted OT evaluation, but RN advised to not complete today. Per RN, patient in a lot of pain and confused. Will attempt again tomorrow.
--- NOTE | 2019-12-19 17:57 | PM.IMPN ---
Progress Note: A&P Assessment and Plan (1) Septic shock: Code(s): A41.9 - Sepsis, unspecified organism; R65.21 - Severe sepsis with septic shock Status: Acute Assessment and Plan: Due to cellulitis and/or abscess of buttock, perirectal Continue broad-spectrum antibiotic coverage. BC NG but wound MRSA , strep and Erika frag. Continue IV fluid hydration. pressors now off. per boilermaker fitter (2) Cellulitis and abscess of buttock: Code(s): L02.31 - Cutaneous abscess of buttock; L03.317 - Cellulitis of buttock Status: Acute Assessment and Plan: The patient has been started on Zosyn and vancomycin. cultures as above. . Blood cultures from outside facility are negative to date. general surgery I&D ed 12/17 and further cultures obtained and repeat dressing change today (3) Elevated troponin: Code(s): R79.89 - Other specified abnormal findings of blood chemistry Status: Acute Assessment and Plan: secondary to demand ischemia from the patient's septic shock and hypotension. Will continue to trend troponins and monitor telemetry. Not secondary to acute plaque rupture. ehco normal EF with no wall motion abnormalities but moderate aortic stenosis (4) Anemia: Code(s): D64.9 - Anemia, unspecified Status: Acute Assessment and Plan: follow and obtain Fe studies with retic Subjective Date/time seen: 12/19/19 17:57 Interval history: Date of visit 12/18. Hypertensive white female with history diastolic heart failure admitted with cellulitis abscess perirectal and sepsis with hypotension. Presently mechanically ventilated and in the ICU but off pressors Exam Narrative: Exam Narrative: PHYSICAL EXAM: Blood pressure 124/56 pulse 78 saturating 99% on FiO2 of 30% in peep 5 General: Acutely ill-appearing, morbidly obese HEENT: , no scleral icterus, et tube secured Neck: Large neck circumference no significant lymphadenopathy, Respiratory: Clear to auscultation bilaterally Cardiovascular: Systolic murmur, sinus tachycardia, 1+ bilateral radial pulses, 2+ bilateral pedal pulses Gastrointestinal: Obese, nontender, nondistended, positive bowel sounds Skin: wound left buttock now covered after I&D Extremities: Chronic venous stasis changes ,mild bilateral lower extremities, no pitting edema, Neurological: sedated on vent Objective Data Vital Signs Vital Signs: Vital Signs - 24 hr 12/18/19 18:00 12/18/19 19:50 12/18/19 19:57 Temperature 37.1 C Pulse Rate 75 69 74 Respiratory Rate 16 18 Blood Pressure 150/76 H 95/66 L Pulse Oximetry 100 99 100 12/18/19 20:00 12/18/19 21:00 12/18/19 21:25 Temperature Pulse Rate 77 84 77 Respiratory Rate 18 18 Blood Pressure 95/66 L 93/44 L Pulse Oximetry 12/18/19 21:36 12/18/19 22:00 12/18/19 22:30 Temperature Pulse Rate 78 82 80 Respiratory Rate 18 18 Blood Pressure 137/64 114/59 L Pulse Oximetry 100 12/18/19 22:31 12/18/19 23:15 12/18/19 23:47 Temperature 37.1 C Pulse Rate 81 77 Respiratory Rate 18 Blood Pressure 114/59 L Pulse Oximetry 99 98 12/19/19 00:00 12/19/19 00:02 12/19/19 00:16 Temperature Pulse Rate 89 93 79 Respiratory Rate 18 24 H Blood Pressure 97/60 L 113/64 Pulse Oximetry 100 97 12/19/19 01:01 12/19/19 02:00 12/19/19 02:31 Temperature Pulse Rate 86 78 82 Respiratory Rate 15 19 Blood Pressure 109/58 L 118/59 L Pulse Oximetry 93 100 12/19/19 02:33 12/19/19 02:40 12/19/19 04:00 Temperature 36.7 C Pulse Rate 83 82 65 Respiratory Rate 19 18 18 Blood Pressure 123/53 L Pulse Oximetry 100 12/19/19 04:26 12/19/19 06:00 12/19/19 06:01 Temperature Pulse Rate 66 69 69 Respiratory Rate 21 H Blood Pressure 107/44 L Pulse Oximetry 100 99 12/19/19 07:16 12/19/19 07:45 12/19/19 07:52 Temperature Pulse Rate 53 L 52 L 55 L Respiratory Rate 19 18 19 Blood Pressure Pulse Oximetry 0
[2019-12-19] MEDS: APIXABAN 5 MG TABLET PO (19:35)
[2019-12-19] MEDS: ALBUTEROL SULFATE NEB 2.5 MG/0.5 ML INH 1.25 MG INHALATION (19:59)
[2019-12-20] VITALS (21 sets, daily range): BP systolic 97–131; BP diastolic 43–64; PULSE 79–98; RESP 18–26; TEMP 36.5–37.2; O2SAT 92–100
[2019-12-20] MEDS: MORPHINE SULFATE 2 MG/ML INJ IV PUSH ×3 (00:59→21:07)
[2019-12-20] MEDS: IPRATROPIUM BR 0.02% INH SOLN 0.5 MG/2.5 ML VIAL INHALATION ×4 (01:39→20:56)
[2019-12-20] MEDS: ALBUTEROL SULFATE NEB 2.5 MG/0.5 ML INH 1.25 MG INHALATION (01:39)
[2019-12-20 05:50] LABS: Basophils Percent Auto 0.5 % (0.2-1.2); Eosinophils Absolute Auto 0.2 K/mm3 (0-0.3); Eosinophils Percent Auto 2.2 % (0-4.4); Hematocrit 26.8 % (37.0-47.0); Hemoglobin 8.2 g/dL (12.0-15.0); Immature Granulocyte Absolute 0.37 K/mm3 (0.00-0.031); Immature Granulocyte Percent A 4.2 % (0-0.5); Lymphocytes Absolute Auto 1.61 K/mm3 (0.9-3.2); Lymphocytes Percent Auto 18.4 % (18.3-44.2); Mean Corpuscular HGB Conc 30.6 g/dl (32-36); Mean Corpuscular Hemoglobin 28.4 pg (26-34); Mean Corpuscular Volume 92.7 fl (80-100); Mean Platelet Volume 10.7 fl (7.4-10.4); Monocytes Absolute Auto 1.1 K/mm3 (0.1-0.6); Monocytes Percent Auto 12.3 % (2.6-8.5); Neutrophils Absolute Auto 5.5 K/mm3 (1.3-6.7); Neutrophils Percent Auto 62.4 % (45.5-73.1); Nucleated Red Blood Cells Perc 0.5 % (0.0-0.2); Platelet Count Result 178 k/mm3 (150-375); Red Blood Count 2.89 M/mm3 (4.2-5.4); Red Cell Distribution Width 15.2 % (11.5-14.5); White Blood Count 8.8 K/mm3 (4.5-10.0)
[2019-12-20 05:56] LABS: Potassium 3.3 mmol/L (3.4-5.0)
[2019-12-20 06:03] LABS: Blood Urea Nitrogen 8 mg/dL (7-17); Calcium 7.7 mg/dL (8.4-10.2); Carbon Dioxide 32 mmol/L (22-30); Chloride 105 mmol/L (98-107); Estimated CRCL calculation 75 ml/min; Estimated Glomerular Filt Rate > 60; Glucose 102 mg/dL (65-105); Phosphorus 3.6 mg/dL (2.5-4.5); Sodium 141 mmol/L (137-145)
[2019-12-20 06:56] LABS: Iron 23 ug/dL (37-170)
[2019-12-20 07:05] LABS: Percent Iron Saturation 10 % (20-50)
--- NOTE | 2019-12-20 07:57 | PM.PNCARD ---
Progress Note: A&P Assessment and Plan (1) Elevated troponin: Code(s): R79.89 - Other specified abnormal findings of blood chemistry Status: Acute Assessment and Plan: Likely due to type II infarct related to septic shock/infection. No ACS based on no wall motion abnormality on echo and no ischemia on EKG. Troponin peaked at 0.2. On aspirin and Atorvastatin. No further cardiac workup is needed. (2) Septic shock: Code(s): A41.9 - Sepsis, unspecified organism; R65.21 - Severe sepsis with septic shock Status: Acute Assessment and Plan: Off vasopressors. Pit Shoveler following. (3) Cellulitis and abscess of buttock: Code(s): L02.31 - Cutaneous abscess of buttock; L03.317 - Cellulitis of buttock Status: Acute (4) COPD (chronic obstructive pulmonary disease): Qualifiers: COPD type: unspecified COPD Qualified Code(s): J44.9 - Chronic obstructive pulmonary disease, unspecified Code(s): J44.9 - Chronic obstructive pulmonary disease, unspecified Status: Chronic (5) CVA (cerebral vascular accident): Code(s): I63.9 - Cerebral infarction, unspecified Status: Acute Assessment and Plan: Due to stroke she was restarted on Eliquis. (6) Hypertension: Code(s): I10 - Essential (primary) hypertension Status: Acute (7) CAD (coronary artery disease), autologous vein bypass graft: Code(s): I25.810 - Atherosclerosis of coronary artery bypass graft(s) without angina pectoris Status: Acute Assessment and Plan: Thickened mitral valve and MAC suggest mitral valve repair or bioprosthesis. (8) Morbid obesity with BMI of 45.0-49.9, adult: Code(s): E66.01 - Morbid (severe) obesity due to excess calories; Z68.42 - Body mass index (BMI) 45.0-49.9, adult Status: Acute (9) Obstructive sleep apnea: Code(s): G47.33 - Obstructive sleep apnea (adult) (pediatric) Status: Acute (10) Aortic stenosis, moderate: Code(s): I35.0 - Nonrheumatic aortic (valve) stenosis Status: Acute (11) Diastolic heart failure: Code(s): I50.30 - Unspecified diastolic (congestive) heart failure Status: Acute (12) PSVT (paroxysmal supraventricular tachycardia): Code(s): I47.1 - Supraventricular tachycardia Status: Acute Assessment and Plan: History of atrial flutter ablation. 8 day event monitor in September 2019 also showed she has PSVT. 12 beat run 01:39 on 12/20/19. Keep Potassium around 4.0 Replete KCl as it is 3.3 today. Subjective Date/time seen: 12/20/19 07:57 Patient was extubated yesterday afternoon. Reports hurting all over. She was able to say a few words only. Appears weak. Exam Const: General: no acute distress Neck: Neck: no JVD Resp: Auscultation: clear to auscultation bilaterally, no crackles, no rales, no rhonchi and no wheezes Cardio: Rate: regular rate Rhythm: regular rhythm GI: Inspection: non-distended Extrem: Right lower extremity: no edema Left lower extremity: no edema Objective Data Vital Signs Vital Signs: Vital Signs - 24 hr 12/19/19 08:00 12/19/19 08:30 12/19/19 08:33 Temperature 98.3 F Pulse Rate 61 54 L 57 L Respiratory Rate 18 18 Blood Pressure 144/50 H 102/67 Pulse Oximetry 100 12/19/19 08:34 12/19/19 08:47 12/19/19 08:48 Temperature Pulse Rate 53 L 51 L 51 L Respiratory Rate 18 18 Blood Pressure 108/57 L Pulse Oximetry 12/19/19 09:09 12/19/19 09:10 12/19/19 10:00 Temperature Pulse Rate 52 L 53 L 52 L Respiratory Rate 18 18 18 Blood Pressure 125/56 L 130/66 Pulse Oximetry 100 12/19/19 10:11 12/19/19 10:25 12/19/19 10:34 Temperature Pulse Rate 53 L 53 L 58 L Respiratory Rate Blood Pressure 130/66 133/78 Pulse Oximetry 12/19/19 10:36 12/19/19 10:51 12/19/19 11:05 Temperature Pulse Rate 57 L 53 L 54 L Respiratory Rate Blood Pressure 133/59 L 131/57 L 115/52 L Pulse Oxi
[2019-12-20] MEDS: FUROSEMIDE INJ 40 MG/4 ML VIAL 20 MG IV PUSH (08:00)
--- NOTE | 2019-12-20 08:25 | WPDINTPN ---
Progress Note: A&P Assessment and Plan (1) Acute respiratory failure: Qualifiers: Respiratory failure complication: unspecified whether with hypoxia or hypercapnia Qualified Code(s): J96.00 - Acute respiratory failure, unspecified whether with hypoxia or hypercapnia Code(s): J96.00 - Acute respiratory failure, unspecified whether with hypoxia or hypercapnia Status: Acute Assessment and Plan: Patient intubated on 12/17/2019 for impending respiratory failure likely related to septic shock. She was extubated on 12/19/19. -she was extubated after she did well with SBT trial. She tolerated extubation very well and has been on 2 L of oxygen through nasal cannula. Wean oxygen if tolerated. -continue bronchodilators Speech evaluation. Keep her NPO until speech service clearance. Encourage deep breathing and cough. PT OT services will be consulted. Incentive spirometry will be started. (2) Septic shock: Code(s): A41.9 - Sepsis, unspecified organism; R65.21 - Severe sepsis with septic shock Status: Acute Assessment and Plan: Septic shock most likely related to perirectal abscess and cellulitis. -continue Vancomycin. Stop Zosyn and start Flagyl. Staff aureus has been found to be MRSA. She has bacteroids fragilis as well in addition to group B Streptococcus. -lactic acid has normalized -patient was adequately fluid resuscitated. She had self diurese of about 2.5 L yesterday. Chest x-ray seems congested and will give a small dose of Lasix of 20 mg today. Strict intake output record and daily weight will be maintained. She has been weaned off from Roberto Carlos-Synephrine yesterday. Her hemodynamics are stable. (3) Cellulitis and abscess of buttock: Code(s): L02.31 - Cutaneous abscess of buttock; L03.317 - Cellulitis of buttock Status: Acute Assessment and Plan: Cellulitis and abscess of the buttock/perirectal abscess -12/17/2019 status post drainage and incision/debridement. Large complicated left-sided perirectal abscess with necrotic skin and infected subcutaneous tissue requiring drainages well as excisional debridement of both skin and subcutaneous. -surgery following the patient closely. She underwent dressing change yesterday with wound check. Pain control with morphine. Deescalate if her symptoms are adequately controlled. (4) Elevated troponin: Code(s): R79.89 - Other specified abnormal findings of blood chemistry Status: Acute Assessment and Plan: Elevated troponin most likely related to ischemic demand. It has peaked at 0.215 and now has been seeing a downward trend. -appreciate Cardiology evaluation. Echo with ejection fraction of 60-65% and diastolic congestive heart failure. Moderate aortic stenosis. (5) COPD (chronic obstructive pulmonary disease): Qualifiers: COPD type: unspecified COPD Qualified Code(s): J44.9 - Chronic obstructive pulmonary disease, unspecified Code(s): J44.9 - Chronic obstructive pulmonary disease, unspecified Status: Chronic Assessment and Plan: History of COPD -continue antibiotics and bronchodilators -no wheezing noted. Hold of systemic steroids. (6) DVT prophylaxis: Code(s): Z29.9 - Encounter for prophylactic measures, unspecified Status: Acute Assessment and Plan: On Eliquis Stress ulcer prophylaxis: Protonix but will be discontinued later once she is started p.o. after speech evaluation. (7) Dietary counseling and surveillance: Code(s): Z71.3 - Dietary counseling and surveillance Status: Acute Assessment and Plan: She is currently NPO. Speech evaluation is pending. (8) Atrial flutter: Code(s): I48.92 - Unspecified atrial flutter Status: Acute Assessment and Plan: Patient has a history of atrial fibrillation, currently sinus rhythm, rate controlled. On Eliquis at home -Eliquis has been resumed yesterday after it was on hold for
[2019-12-20] MEDS: DULoxetine HCL 60 MG CAPSULE.DR PO (08:31)
[2019-12-20] MEDS: PANTOPRAZOLE SODIUM IV 40 MG VIAL IV PUSH (08:31)
[2019-12-20] MEDS: ATORVASTATIN 40 MG TABLET 80 MG PO (08:31)
[2019-12-20] MEDS: APIXABAN 5 MG TABLET PO ×2 (08:31→20:59)
[2019-12-20] MEDS: metroNIDAZOLE 500 MG/ISO 100ML 500 MG/100 ML BAG 100 MG IVPB ×2 (08:32→16:50)
[2019-12-20] MEDS: ASPIRIN 81 MG CHEWABLE TABLET FEED TUBE (08:34)
--- NOTE | 2019-12-20 13:25 | PM.PNGS ---
Progress Note: A&P Assessment and Plan (1) Perirectal abscess: Code(s): K61.1 - Rectal abscess Status: Acute Assessment and Plan: Continue daily packing changes and IV antibiotics (2) Septic shock: Code(s): A41.9 - Sepsis, unspecified organism; R65.21 - Severe sepsis with septic shock Status: Acute Assessment and Plan: Extubated and off pressors now (3) Morbid obesity with BMI of 45.0-49.9, adult: Code(s): E66.01 - Morbid (severe) obesity due to excess calories; Z68.42 - Body mass index (BMI) 45.0-49.9, adult Status: Acute Subjective Subjective Date/Time Seen: 12/20/19 13:25 Patient extubated yesterday. Having liquid stool, making it hard to keep abscess dressing clean. Exam GI: Other: Perirectal abscess packing changed. 1 iodoform gauze packed. Minimal bloody drainage. Scant necrotic tissue in wound bed but otherwise healthy appearing. Objective Data Vital Signs Vital Signs: Vital Signs - 24 hr 12/19/19 13:32 12/19/19 13:33 12/19/19 13:40 Temperature Pulse Rate 69 69 71 Respiratory Rate 19 21 H Blood Pressure 121/87 Pulse Oximetry 100 12/19/19 13:45 12/19/19 13:49 12/19/19 13:51 Temperature Pulse Rate 72 73 75 Respiratory Rate 25 H 25 H Blood Pressure 136/70 Pulse Oximetry 12/19/19 13:55 12/19/19 14:00 12/19/19 14:06 Temperature Pulse Rate 70 73 73 Respiratory Rate 21 H 17 Blood Pressure 128/64 128/64 Pulse Oximetry 100 12/19/19 15:13 12/19/19 16:00 12/19/19 16:28 Temperature 36.9 C Pulse Rate 82 81 88 Respiratory Rate 22 H 25 H 26 H Blood Pressure 107/77 105/62 Pulse Oximetry 98 97 94 12/19/19 16:40 12/19/19 17:01 12/19/19 18:00 Temperature Pulse Rate 90 94 95 Respiratory Rate 18 Blood Pressure 105/62 110/74 108/62 Pulse Oximetry 97 12/19/19 18:18 12/19/19 20:00 12/19/19 20:01 Temperature 37.2 C Pulse Rate 93 92 92 Respiratory Rate 18 18 Blood Pressure 126/68 119/65 Pulse Oximetry 99 12/19/19 20:09 12/19/19 21:41 12/19/19 22:00 Temperature Pulse Rate 91 98 Respiratory Rate 20 16 Blood Pressure 99/68 L Pulse Oximetry 96 100 12/20/19 00:00 12/20/19 01:40 12/20/19 01:48 Temperature 37.1 C Pulse Rate 98 92 90 Respiratory Rate 18 21 H 18 Blood Pressure 105/51 L Pulse Oximetry 100 12/20/19 02:00 12/20/19 04:00 12/20/19 06:00 Temperature 37.2 C Pulse Rate 91 84 83 Respiratory Rate 20 22 H 20 Blood Pressure 104/55 L 98/49 L 112/43 L Pulse Oximetry 97 98 97 12/20/19 07:47 12/20/19 07:50 12/20/19 08:00 Temperature Pulse Rate 92 80 91 Respiratory Rate 22 H Blood Pressure Pulse Oximetry 94 12/20/19 08:02 12/20/19 10:00 12/20/19 12:02 Temperature 36.8 C 36.5 C Pulse Rate 89 86 95 Respiratory Rate 20 26 H 21 H Blood Pressure 118/63 121/59 L 97/59 L Pulse Oximetry 95 92 97 Intake/Output Intake/Output: Intake & Output 12/17/19 12/18/19 12/19/19 12/20/19 23:59 23:59 23:59 23:59 Intake Total 4395 3931 2080 940 Output Total 1900 1825 3400 2400 Balance 9802 0658 -1188 -9925 Meds/Results Medications: Active Medications Generic Name Dose Route Start Last Admin Trade Name Freq PRN Reason Stop Dose Admin Acetaminophen 650 mg 12/17/19 11:03 12/19/19 05:18 Tylenol Elixir PO 650 mg Q4H PRN Administration MILD PAIN OR Fever Albuterol 1.25 mg 12/17/19 10:59 12/20/19 01:39 Albuterol Sulf Neb 2.5mg/0.5ml INHALATION 1.25 mg Q6HRT PRN Administration Shortness Of Breath Apixaban 5 mg 12/19/19 21:00 12/20/19 08:31 Eliquis PO 5 mg Q12HR MIK Administration Aspirin 81 mg 12/18/19 11:05 12/20/19 08:34 Aspirin Chewable FEED TUBE 81 mg DAILY@0800 MIK Administration Atorvastatin Calcium 80 mg 12/20/19 09:00 12/20/19 08:31 Lipitor PO 80 mg DAILY MIK Administration Duloxetine HCl 60 mg 12/17/19 09:00 12/20/19 08:31 Cymbalta PO 60 mg DAILY MIK Adminis
--- NOTE | 2019-12-20 15:36 | PM.IMPN ---
Progress Note: A&P Assessment and Plan (1) Septic shock: Code(s): A41.9 - Sepsis, unspecified organism; R65.21 - Severe sepsis with septic shock Status: Acute Assessment and Plan: Due to cellulitis and/or abscess of buttock, perirectal Continue broad-spectrum antibiotic coverage. BC NG but wound MRSA , strep and Erika frag. Continue IV fluid hydration. pressors now off. out of ICU today, wbc down to 17k (2) Cellulitis and abscess of buttock: Code(s): L02.31 - Cutaneous abscess of buttock; L03.317 - Cellulitis of buttock Status: Acute Assessment and Plan: The patient on Zosyn and vancomycin. cultures as above. . Blood cultures from outside facility are negative to date. general surgery I&D ed 12/17 and further cultures obtained and repeat dressing change again today (3) Elevated troponin: Code(s): R79.89 - Other specified abnormal findings of blood chemistry Status: Acute Assessment and Plan: secondary to demand ischemia from the patient's septic shock and hypotension. Will continue to trend troponins and monitor telemetry. Not secondary to acute plaque rupture. ehco normal EF with no wall motion abnormalities but moderate aortic stenosis (4) Anemia: Code(s): D64.9 - Anemia, unspecified Status: Acute Assessment and Plan: follow and Fe studies look to be anemia of chronic disease. , hgb 8.2 today Subjective Date/time seen: 12/20/19 15:36 Interval history: Date of visit 12/19. Hypertensive white female with history diastolic heart failure admitted with cellulitis abscess perirectal and sepsis with hypotension. Extubated pm 7 off pressors but drowsy Exam Narrative: Exam Narrative: PHYSICAL EXAM: Blood pressure 120/60 pulse 86 saturating 94% on RA General: sitting in chair, morbidly obese, drowsy HEENT: , no scleral icterus Neck: Large neck circumference no significant lymphadenopathy, Respiratory: Clear to auscultation bilaterally Cardiovascular: Systolic murmur, 1+ bilateral radial pulses, 2+ bilateral pedal pulses Gastrointestinal: Obese, nontender, nondistended, positive bowel sounds Skin: wound left buttock now covered after I&D(surgery changed dressing today) Extremities: Chronic venous stasis changes ,mild bilateral lower extremities, no pitting edema, Neurological: drowsy but nothing focal Objective Data Vital Signs Vital Signs: Vital Signs - 24 hr 12/19/19 16:00 12/19/19 16:28 12/19/19 16:40 Temperature 36.9 C Pulse Rate 81 88 90 Respiratory Rate 25 H 26 H Blood Pressure 105/62 105/62 Pulse Oximetry 97 94 12/19/19 17:01 12/19/19 18:00 12/19/19 18:18 Temperature Pulse Rate 94 95 93 Respiratory Rate 18 Blood Pressure 110/74 108/62 126/68 Pulse Oximetry 97 12/19/19 20:00 12/19/19 20:01 12/19/19 20:09 Temperature 37.2 C Pulse Rate 92 92 91 Respiratory Rate 18 18 20 Blood Pressure 119/65 Pulse Oximetry 99 12/19/19 21:41 12/19/19 22:00 12/20/19 00:00 Temperature 37.1 C Pulse Rate 98 98 Respiratory Rate 16 18 Blood Pressure 99/68 L 105/51 L Pulse Oximetry 96 100 100 12/20/19 01:40 12/20/19 01:48 12/20/19 02:00 Temperature Pulse Rate 92 90 91 Respiratory Rate 21 H 18 20 Blood Pressure 104/55 L Pulse Oximetry 97 12/20/19 04:00 12/20/19 06:00 12/20/19 07:47 Temperature 37.2 C Pulse Rate 84 83 92 Respiratory Rate 22 H 20 22 H Blood Pressure 98/49 L 112/43 L Pulse Oximetry 98 97 12/20/19 07:50 12/20/19 08:00 12/20/19 08:02 Temperature 36.8 C Pulse Rate 80 91 89 Respiratory Rate 20 Blood Pressure 118/63 Pulse Oximetry 94 95 12/20/19 08:55 12/20/19 10:00 12/20/19 12:02 Temperature 36.5 C Pulse Rate 94 86 95 Respiratory Rate 22 H 26 H 21 H Blood Pressure 121/59 L 97/59 L Pulse Oximetry 92 97 12/20/19 13:29 12/20/19 13:40 Temperature Pulse Rate 84 84 Respiratory Rate 22 H 22 H Blood Pressure Pulse Oximetr
--- NOTE | 2019-12-20 20:21 | PC.NURSE ---
This patient, Padmini Monreal, was transferred to [facility] on 12/20/19 at 2015. Personal belongings sent with patient. Belongings list checked and signed with receiving. Report given to DEJUAN Sánchez. Appropriate documentation sent with patient.
--- NOTE | 2019-12-20 20:55 | PC.NURSE ---
Attempted to call the patient's emergency contact,Aaron, to inform him of her transfer to Room 341. The number was out of order according to the voice recording.
--- NOTE | 2019-12-20 23:32 | PC.NURSE ---
This patient, Padmini Monreal, was received from [ ICU] on 12/20/19 at 2015. Personal belongings list checked and signed. Patient/family oriented to unit policies and routines
[2019-12-21] VITALS (19 sets, daily range): BP systolic 105–131; BP diastolic 50–68; PULSE 76–92; RESP 18–24; TEMP 35.6–36.7; O2SAT 93–96
[2019-12-21] MEDS: metroNIDAZOLE 500 MG/ISO 100ML 500 MG/100 ML BAG 100 MG IVPB ×3 (00:05→16:36)
[2019-12-21] MEDS: IPRATROPIUM BR 0.02% INH SOLN 0.5 MG/2.5 ML VIAL INHALATION ×4 (01:25→19:09)
[2019-12-21] MEDS: MORPHINE SULFATE 2 MG/ML INJ IV PUSH ×4 (01:58→22:45)
[2019-12-21 05:41] LABS: Basophils Percent Auto 0.4 % (0.2-1.2); Eosinophils Absolute Auto 0.1 K/mm3 (0-0.3); Eosinophils Percent Auto 1.6 % (0-4.4); Hematocrit 27.3 % (37.0-47.0); Hemoglobin 8.5 g/dL (12.0-15.0); Immature Granulocyte Percent A 6.1 % (0-0.5); Lymphocytes Absolute Auto 1.57 K/mm3 (0.9-3.2); Lymphocytes Percent Auto 19.1 % (18.3-44.2); Mean Corpuscular HGB Conc 31.1 g/dl (32-36); Mean Corpuscular Hemoglobin 28.4 pg (26-34); Mean Corpuscular Volume 91.3 fl (80-100); Monocytes Absolute Auto 1.2 K/mm3 (0.1-0.6); Monocytes Percent Auto 14.6 % (2.6-8.5); Neutrophils Absolute Auto 4.8 K/mm3 (1.3-6.7); Neutrophils Percent Auto 58.2 % (45.5-73.1); Nucleated Red Blood Cells Perc 0.2 % (0.0-0.2); Platelet Count Result 193 k/mm3 (150-375); Red Blood Count 2.99 M/mm3 (4.2-5.4); Red Cell Distribution Width 15.1 % (11.5-14.5); White Blood Count 8.2 K/mm3 (4.5-10.0)
[2019-12-21 05:53] LABS: Blood Urea Nitrogen 7 mg/dL (7-17); Calcium 7.8 mg/dL (8.4-10.2); Carbon Dioxide 34 mmol/L (22-30); Chloride 102 mmol/L (98-107); Estimated CRCL calculation 55 ml/min; Estimated Glomerular Filt Rate 50; Glucose 153 mg/dL (65-105); Phosphorus 3.3 mg/dL (2.5-4.5); Potassium 3.3 mmol/L (3.4-5.0); Sodium 139 mmol/L (137-145)
--- NOTE | 2019-12-21 08:11 | PM.PNCARD ---
Progress Note: A&P Assessment and Plan (1) Elevated troponin: Code(s): R79.89 - Other specified abnormal findings of blood chemistry Status: Acute Assessment and Plan: Likely due to type II infarct related to septic shock/infection. No ACS based on no wall motion abnormality on echo and no ischemia on EKG. Troponin peaked at 0.2. On aspirin and Atorvastatin. No further cardiac workup is needed. (2) Septic shock: Code(s): A41.9 - Sepsis, unspecified organism; R65.21 - Severe sepsis with septic shock Status: Acute Assessment and Plan: Off vasopressors and extubated. (3) Cellulitis and abscess of buttock: Code(s): L02.31 - Cutaneous abscess of buttock; L03.317 - Cellulitis of buttock Status: Acute (4) COPD (chronic obstructive pulmonary disease): Qualifiers: COPD type: unspecified COPD Qualified Code(s): J44.9 - Chronic obstructive pulmonary disease, unspecified Code(s): J44.9 - Chronic obstructive pulmonary disease, unspecified Status: Chronic (5) CVA (cerebral vascular accident): Code(s): I63.9 - Cerebral infarction, unspecified Status: Acute Assessment and Plan: Due to history of stroke she was restarted on Eliquis. (6) Hypertension: Code(s): I10 - Essential (primary) hypertension Status: Acute Assessment and Plan: BP is currently normal. Will need to resume home BP medications as needed. (7) CAD (coronary artery disease), autologous vein bypass graft: Code(s): I25.810 - Atherosclerosis of coronary artery bypass graft(s) without angina pectoris Status: Acute Assessment and Plan: Thickened mitral valve and MAC suggest mitral valve repair or bioprosthesis. (8) Morbid obesity with BMI of 45.0-49.9, adult: Code(s): E66.01 - Morbid (severe) obesity due to excess calories; Z68.42 - Body mass index (BMI) 45.0-49.9, adult Status: Acute (9) Obstructive sleep apnea: Code(s): G47.33 - Obstructive sleep apnea (adult) (pediatric) Status: Acute (10) Aortic stenosis, moderate: Code(s): I35.0 - Nonrheumatic aortic (valve) stenosis Status: Acute (11) Diastolic heart failure: Code(s): I50.30 - Unspecified diastolic (congestive) heart failure Status: Acute Assessment and Plan: Replet potassium to keep it around 4.0. (12) PSVT (paroxysmal supraventricular tachycardia): Code(s): I47.1 - Supraventricular tachycardia Status: Acute Assessment and Plan: History of atrial flutter ablation. 8 day event monitor in September 2019 also showed she has PSVT. 12 beat run 01:39 on 12/20/19. Keep Potassium around 4.0 Replete KCl as it is 3.3 today. (13) History of mitral valve replacement with bioprosthetic valve: Code(s): Z95.3 - Presence of xenogenic heart valve Status: Acute Subjective Date/time seen: 12/21/19 08:11 Denies chest pain. Has some sob. Exam Const: General: comfortable and no acute distress Neck: Neck: no JVD Resp: Effort & Inspection: normal respiratory effort Auscultation: no crackles, no rales, no rhonchi and wheezes Cardio: Rate: regular rate Rhythm: regular rhythm GI: Inspection: non-distended Neuro: Speech: normal speech Extrem: Right lower extremity: no edema Left lower extremity: no edema Objective Data Vital Signs Vital Signs: Vital Signs - 24 hr 12/20/19 08:55 12/20/19 10:00 12/20/19 12:02 Temperature 97.7 F Pulse Rate 94 86 95 Respiratory Rate 22 H 26 H 21 H Blood Pressure 121/59 L 97/59 L Pulse Oximetry 92 97 12/20/19 13:29 12/20/19 13:40 12/20/19 16:00 Temperature 98.3 F Pulse Rate 84 84 79 Respiratory Rate 22 H 22 H 23 H Blood Pressure 131/64 Pulse Oximetry 96 12/20/19 19:58 12/20/19 20:00 12/20/19 20:56 Temperature 98.3 F Pulse Rate 89 85 89 Respiratory Rate 23 H 24 H 25 H Blood Pressure 107/59 L Pulse Oximetry 97 93 94 12/20/19 21:05 12/20/19
[2019-12-21] MEDS: PANTOPRAZOLE SODIUM IV 40 MG VIAL IV PUSH (08:44)
[2019-12-21] MEDS: ATORVASTATIN 40 MG TABLET 80 MG PO (08:44)
[2019-12-21] MEDS: DULoxetine HCL 60 MG CAPSULE.DR PO (08:44)
[2019-12-21] MEDS: APIXABAN 5 MG TABLET PO ×2 (08:45→20:43)
[2019-12-21] MEDS: ASPIRIN 81 MG CHEWABLE TABLET FEED TUBE (10:47)
[2019-12-21 11:48] LABS: Glucose Point of Care 148 (65-105)
--- NOTE | 2019-12-21 13:02 | PM.PNGS ---
Progress Note: A&P Assessment and Plan (1) Perirectal abscess: Code(s): K61.1 - Rectal abscess Status: Acute Assessment and Plan: Continue daily packing changes and IV antibiotics (2) Morbid obesity with BMI of 45.0-49.9, adult: Code(s): E66.01 - Morbid (severe) obesity due to excess calories; Z68.42 - Body mass index (BMI) 45.0-49.9, adult Status: Acute Subjective Subjective Date/Time Seen: 12/21/19 13:02 Patient now on surgical floor. No fevers. Pain controlled. Exam GI: Other: Scant purulent drainage at perirectal abscess wound. Packing changed with 1 iodoform gauze. Objective Data Vital Signs Vital Signs: Vital Signs - 24 hr 12/20/19 13:29 12/20/19 13:40 12/20/19 16:00 Temperature 36.8 C Pulse Rate 84 84 79 Respiratory Rate 22 H 22 H 23 H Blood Pressure 131/64 Pulse Oximetry 96 12/20/19 19:58 12/20/19 20:00 12/20/19 20:56 Temperature 36.8 C Pulse Rate 89 85 89 Respiratory Rate 23 H 24 H 25 H Blood Pressure 107/59 L Pulse Oximetry 97 93 94 12/20/19 21:05 12/20/19 21:08 12/21/19 01:07 Temperature 36.6 C Pulse Rate 90 85 85 Respiratory Rate 24 H 24 H 24 H Blood Pressure 131/60 Pulse Oximetry 93 93 12/21/19 01:25 12/21/19 01:32 12/21/19 04:00 Temperature 36.7 C Pulse Rate 87 88 81 Respiratory Rate 24 H 24 H 22 H Blood Pressure 110/50 L Pulse Oximetry 96 12/21/19 07:35 12/21/19 07:36 12/21/19 07:45 Temperature Pulse Rate 84 92 82 Respiratory Rate 22 H 22 H 22 H Blood Pressure Pulse Oximetry 95 12/21/19 08:00 12/21/19 09:14 12/21/19 12:00 Temperature 36.3 C L 35.8 C L Pulse Rate 76 76 79 Respiratory Rate 18 18 18 Blood Pressure 105/50 L 130/56 L Pulse Oximetry 95 95 96 Intake/Output Intake/Output: Intake & Output 12/18/19 12/19/19 12/20/19 07/05/20 23:59 23:59 23:59 23:59 Intake Total 3931 2080 2140 1160 Output Total 1824 2872 9907 1349 Balance 3538 -1320 -1185 -180 Meds/Results Medications: Active Medications Generic Name Dose Route Start Last Admin Trade Name Freq PRN Reason Stop Dose Admin Acetaminophen 650 mg 12/17/19 11:03 12/19/19 05:18 Tylenol Elixir PO 650 mg Q4H PRN Administration MILD PAIN OR Fever Albuterol 1.25 mg 12/17/19 10:59 12/20/19 01:39 Albuterol Sulf Neb 2.5mg/0.5ml INHALATION 1.25 mg Q6HRT PRN Administration Shortness Of Breath Apixaban 5 mg 12/19/19 21:00 12/21/19 08:45 Eliquis PO 5 mg Q12HR MIK Administration Aspirin 81 mg 12/18/19 11:05 12/21/19 10:47 Aspirin Chewable FEED TUBE 81 mg DAILY@0800 MIK Administration Atorvastatin Calcium 80 mg 12/20/19 09:00 12/21/19 08:44 Lipitor PO 80 mg DAILY MIK Administration Duloxetine HCl 60 mg 12/17/19 09:00 12/21/19 08:44 Cymbalta PO 60 mg DAILY MIK Administration Vancomycin HCl 1,750 mg in 500 mls @ 250 mls/hr 12/17/19 06:00 12/21/19 02:54 Vancomycin 1,750 Mg/D5w 500 Ml IVPB Infused Q18H MIK Infusion Metronidazole 500 mg in 100 mls @ 100 mls/hr 12/20/19 08:00 12/21/19 10:22 Flagyl 500 Mg/Iso Soln 100 Ml IVPB Infused Q8H MIK Infusion Potassium Chloride 500 mls @ 125 mls/hr 12/21/19 09:15 12/21/19 09:27 Kcl 40 Meq/D5w 500 Ml Peripheral IVPB 12/21/19 13:14 125 mls/hr ONCE ONE Administration Ipratropium [place] 0.5 mg 12/17/19 14:00 12/21/19 07:33 Atrovent Neb INHALATION 0.5 mg Q6HRT MIK Administration Morphine Sulfate 1 mg 12/19/19 16:41 Morphine Sulfate Inj IV PUSH Q2H PRN Pain Rated 4-6 Morphine Sulfate 2 mg 12/19/19 16:41 12/21/19 05:35 Morphine Sulfate Inj IV PUSH 2 mg Q2H PRN Administration Pain Rated 7-10 Pantoprazole Sodium 40 mg 12/19/19 09:00 12/21/19 08:44 Protonix Iv IV PUSH 40 mg QAM MIK Administration Radiology Results: ITS Impressions Abdomen/Pelvis CT 12/17/19 07:45 IMPRESSION: 1. Phlegmonous changes left buttocks, consistent wit
--- NOTE | 2019-12-21 15:35 | PCOTNOTE ---
Pt became very emotional during treatment and stated that her grandchildren whom she has adopted, and who are minors were at home by themselves and she was unable to reach anyone who could take them or check on them. DASHAWN reported this to RN who stated that she has been attempting to reach patient's contact, and has been unsuccessful at this time. Rn continued to attempt to reach someone who could give more information about this situation.
--- NOTE | 2019-12-21 16:10 | PCCCNOTE ---
Received call from DEJUAN Crockett that patient notified her today that her two grandchildren (Harrison Monreal 13 yo/Alok Monreal 14 yo) have been home alone since she was brought to the hospital. Spoke directly with patient who expresses concern that they are alone or that their biological mother (Tanesha Ch, may have taken them. Patient stated that she adopted the children after their mother had the children taken away due to issues with heroin. Called [facility]'s office and provided the above information. It appears that the patient was just discharged from [facility] the day before admission here. [facility]'s office will do a welfare check on the children
--- NOTE | 2019-12-21 17:59 | PM.IMPN ---
Progress Note: A&P Assessment and Plan (1) Septic shock: Code(s): A41.9 - Sepsis, unspecified organism; R65.21 - Severe sepsis with septic shock Status: Acute Assessment and Plan: Due to cellulitis and/or abscess of buttock, perirectal Continue broad-spectrum antibiotic coverage. Vanc and flagyl D#5 BC NG but wound MRSA , strep and Erika frag. pressors now off.12/18 out of ICU 12/19, wbc now normal 8.2K (2) Cellulitis and abscess of buttock: Code(s): L02.31 - Cutaneous abscess of buttock; L03.317 - Cellulitis of buttock Status: Acute Assessment and Plan: The patient on flagyl and vancomycin. D#5 cultures as above. . Blood cultures from outside facility are negative to date. general surgery I&D ed 12/17 and further cultures obtained and repeat dressing change again today (3) Elevated troponin: Code(s): R79.89 - Other specified abnormal findings of blood chemistry Status: Acute Assessment and Plan: secondary to demand ischemia from the patient's septic shock and hypotension. Will continue to trend troponins and monitor telemetry. Not secondary to acute plaque rupture. ehco normal EF with no wall motion abnormalities but moderate aortic stenosis (4) Anemia: Code(s): D64.9 - Anemia, unspecified Status: Acute Assessment and Plan: follow and Fe studies look to be anemia of chronic disease. , hgb 8.5 today (5) DVT prophylaxis: Code(s): Z29.9 - Encounter for prophylactic measures, unspecified Status: Acute Assessment and Plan: chronic apixaban with hx of a flutter Subjective Date/time seen: 12/21/19 17:59 Interval history: Date of visit 12/20. Hypertensive white female with history diastolic heart failure admitted with cellulitis abscess perirectal and sepsis with hypotension. Extubated pm 7 off pressors and lying prone in bed. still some pain of abscess Exam Narrative: Exam Narrative: PHYSICAL EXAM: Blood pressure 130/66 pulse 80 saturating 95% on RA afebrile General: sitting in chair, morbidly obese, drowsy HEENT: , no scleral icterus Neck: Large neck circumference no significant lymphadenopathy, Respiratory: Clear to auscultation bilaterally Cardiovascular: Systolic murmur, 1+ bilateral radial pulses, 2+ bilateral pedal pulses Gastrointestinal: Obese, nontender, nondistended, positive bowel sounds Skin: wound left buttock , clean but somewhat deep, watched surgeon repack wound Extremities: Chronic venous stasis changes ,mild bilateral lower extremities, no pitting edema, Neurological: more alert today Objective Data Vital Signs Vital Signs: Vital Signs - 24 hr 12/20/19 19:58 12/20/19 20:00 12/20/19 20:56 Temperature 36.8 C Pulse Rate 89 85 89 Respiratory Rate 23 H 24 H 25 H Blood Pressure 107/59 L Pulse Oximetry 97 93 94 12/20/19 21:05 12/20/19 21:08 12/21/19 01:07 Temperature 36.6 C Pulse Rate 90 85 85 Respiratory Rate 24 H 24 H 24 H Blood Pressure 131/60 Pulse Oximetry 93 93 12/21/19 01:25 12/21/19 01:32 12/21/19 04:00 Temperature 36.7 C Pulse Rate 87 88 81 Respiratory Rate 24 H 24 H 22 H Blood Pressure 110/50 L Pulse Oximetry 96 12/21/19 07:35 12/21/19 07:36 12/21/19 07:45 Temperature Pulse Rate 84 92 82 Respiratory Rate 22 H 22 H 22 H Blood Pressure Pulse Oximetry 95 12/21/19 08:00 12/21/19 09:14 12/21/19 12:00 Temperature 36.3 C L 35.8 C L Pulse Rate 76 76 79 Respiratory Rate 18 18 18 Blood Pressure 105/50 L 130/56 L Pulse Oximetry 95 95 96 12/21/19 14:50 12/21/19 15:01 12/21/19 16:18 Temperature 35.6 C L Pulse Rate 85 82 81 Respiratory Rate 22 H 22 H 18 Blood Pressure 131/68 Pulse Oximetry 95 Intake/Output Intake/Output: Intake & Output 12/18/19 12/19/19 12/20/19 12/21/19 23:59 23:59 23:59 23:59 Intake Total 3931 2080 2140 1280 Output Total 7393 3286 9322 7594 Balance 2106 -1320 -1185 -560 Meds/Results
[2019-12-21] MEDS: MORPHINE SULFATE 2 MG/ML INJ 1 MG IV PUSH (19:06)
[2019-12-22] VITALS (13 sets, daily range): BP systolic 102–162; BP diastolic 42–73; PULSE 75–90; RESP 16–25; TEMP 36.1–37.3; O2SAT 94–97
[2019-12-22] MEDS: ACETAMINOPHEN ELIXIR 325 MG/10.15 ML UDC 650 MG PO (00:17)
[2019-12-22] MEDS: metroNIDAZOLE 500 MG/ISO 100ML 500 MG/100 ML BAG 100 MG IVPB ×4 (00:18→23:01)
[2019-12-22] MEDS: MORPHINE SULFATE 2 MG/ML INJ IV PUSH (01:01)
[2019-12-22] MEDS: IPRATROPIUM BR 0.02% INH SOLN 0.5 MG/2.5 ML VIAL INHALATION ×3 (02:08→19:45)
[2019-12-22 05:18] LABS: Basophils Percent Auto 0.4 % (0.2-1.2); Eosinophils Absolute Auto 0.1 K/mm3 (0-0.3); Eosinophils Percent Auto 1.5 % (0-4.4); Hematocrit 28.9 % (37.0-47.0); Hemoglobin 8.8 g/dL (12.0-15.0); Immature Granulocyte Absolute 0.51 K/mm3 (0.00-0.031); Immature Granulocyte Percent A 6.2 % (0-0.5); Lymphocytes Absolute Auto 1.42 K/mm3 (0.9-3.2); Lymphocytes Percent Auto 17.4 % (18.3-44.2); Mean Corpuscular HGB Conc 30.4 g/dl (32-36); Mean Platelet Volume 10.7 fl (7.4-10.4); Monocytes Absolute Auto 1.3 K/mm3 (0.1-0.6); Monocytes Percent Auto 15.4 % (2.6-8.5); Neutrophils Absolute Auto 4.8 K/mm3 (1.3-6.7); Neutrophils Percent Auto 59.1 % (45.5-73.1); Nucleated Red Blood Cells Perc 0.2 % (0.0-0.2); Platelet Count Result 225 k/mm3 (150-375); Red Blood Count 3.14 M/mm3 (4.2-5.4); Red Cell Distribution Width 15.2 % (11.5-14.5); White Blood Count 8.2 K/mm3 (4.5-10.0)
[2019-12-22 05:33] LABS: Blood Urea Nitrogen 6 mg/dL (7-17); Calcium 7.9 mg/dL (8.4-10.2); Carbon Dioxide 33 mmol/L (22-30); Chloride 103 mmol/L (98-107); Estimated CRCL calculation 55 ml/min; Estimated Glomerular Filt Rate 50; Glucose 115 mg/dL (65-105); Magnesium 2.1 mg/dL (1.6-2.3); Phosphorus 4.2 mg/dL (2.5-4.5); Potassium 3.4 mmol/L (3.4-5.0); Sodium 139 mmol/L (137-145)
[2019-12-22] MEDS: MORPHINE SULFATE 2 MG/ML INJ 1 MG IV PUSH (06:52)
--- NOTE | 2019-12-22 08:15 | PM.PNGS ---
Progress Note: A&P Assessment and Plan (1) Perirectal abscess: Code(s): K61.1 - Rectal abscess Status: Acute Assessment and Plan: Plan to leave see time and place for 3 weeks. Patient will go home with it. Will change to dry gauze dressings being packed in the wound and changed t.i.d. to alleviate the drainage and mucus buildup. Continue inpatient care for now. Ambulate and continue physical therapy. (2) Anticoagulant long-term use: Code(s): Z79.01 - [facility] (current) use of anticoagulants Status: Chronic Assessment and Plan: Apixaban has been restarted. Monitor for bleeding. (3) Chronic diastolic (congestive) heart failure: Code(s): I50.32 - Chronic diastolic (congestive) heart failure Status: Acute (4) PSVT (paroxysmal supraventricular tachycardia): Code(s): I47.1 - Supraventricular tachycardia Status: Acute (5) Aortic stenosis, moderate: Code(s): I35.0 - Nonrheumatic aortic (valve) stenosis Status: Acute (6) Morbid obesity with BMI of 45.0-49.9, adult: Code(s): E66.01 - Morbid (severe) obesity due to excess calories; Z68.42 - Body mass index (BMI) 45.0-49.9, adult Status: Acute (7) Obstructive sleep apnea: Code(s): G47.33 - Obstructive sleep apnea (adult) (pediatric) Status: Acute Subjective Subjective Date/Time Seen: 12/22/19 08:15 Post Op day: 5 Patient reports: no new complaints and still having pain Exam GI: Rectal Exam: buttock abscess ( No purulence noted, seton in place) and other ( drainage and exudate noted, generally clean with no evidence of purulence) Objective Data Vital Signs Vital Signs: Vital Signs - 24 hr 12/21/19 09:14 12/21/19 12:00 12/21/19 14:50 Temperature 36.3 C L 35.8 C L Pulse Rate 76 79 85 Respiratory Rate 18 18 22 H Blood Pressure 105/50 L 130/56 L Pulse Oximetry 95 96 12/21/19 15:01 12/21/19 16:18 12/21/19 19:09 Temperature 35.6 C L Pulse Rate 82 81 88 Respiratory Rate 22 H 18 20 Blood Pressure 131/68 Pulse Oximetry 95 12/21/19 19:15 12/21/19 19:17 12/21/19 20:30 Temperature Pulse Rate 86 86 Respiratory Rate 20 18 Blood Pressure Pulse Oximetry 94 95 12/21/19 21:49 12/21/19 21:53 12/22/19 02:08 Temperature 36.1 C L Pulse Rate 82 91 88 Respiratory Rate 20 20 18 Blood Pressure 124/68 Pulse Oximetry 93 94 12/22/19 02:13 12/22/19 02:19 12/22/19 05:59 Temperature 36.2 C L 36.1 C L Pulse Rate 90 86 84 Respiratory Rate 18 18 18 Blood Pressure 128/73 102/66 Pulse Oximetry 95 95 12/22/19 07:37 12/22/19 07:45 Temperature Pulse Rate 80 77 Respiratory Rate 18 18 Blood Pressure Pulse Oximetry 95 Intake/Output Intake/Output: Intake & Output 12/19/19 12/20/19 12/21/19 12/22/19 23:59 23:59 23:59 23:59 Intake Total 2080 2140 2380 375 Output Total 3400 3325 1840 1300 Balance -1320 -1188 540 -924 Meds/Results Medications: Active Medications Generic Name Dose Route Start Last Admin Trade Name Freq PRN Reason Stop Dose Admin Acetaminophen 650 mg 12/17/19 11:03 12/22/19 00:17 Tylenol Elixir PO 650 mg Q4H PRN Administration MILD PAIN OR Fever Albuterol 1.25 mg 12/17/19 10:59 12/20/19 01:39 Albuterol Sulf Neb 2.5mg/0.5ml INHALATION 1.25 mg Q6HRT PRN Administration Shortness Of Breath Apixaban 5 mg 12/19/19 21:00 12/21/19 20:43 Eliquis PO 5 mg Q12HR MIK Administration Aspirin 81 mg 12/18/19 11:05 12/21/19 10:47 Aspirin Chewable FEED TUBE 81 mg DAILY@0800 MIK Administration Atorvastatin Calcium 80 mg 12/20/19 09:00 12/21/19 08:44 Lipitor PO 80 mg DAILY MIK Administration Duloxetine HCl 60 mg 12/17/19 09:00 12/21/19 08:44 Cymbalta PO 60 mg DAILY MIK Administration Vancomycin HCl 1,750 mg in 500 mls @ 250 mls/hr 12/17/19 06:00 12/21/19 21:00 Vancomycin 1,750 Mg/D5w 500 Ml IVPB Infused Q18H MIK Infusion [facility]
--- NOTE | 2019-12-22 08:16 | PM.PNCARD ---
Progress Note: A&P Assessment and Plan (1) Elevated troponin: Code(s): R79.89 - Other specified abnormal findings of blood chemistry Status: Acute Assessment and Plan: Likely due to type II infarct related to septic shock/infection. No ACS based on no wall motion abnormality on echo and no ischemia on EKG. Troponin peaked at 0.2. On aspirin and Atorvastatin. No further cardiac workup is needed. (2) Septic shock: Code(s): A41.9 - Sepsis, unspecified organism; R65.21 - Severe sepsis with septic shock Status: Acute Assessment and Plan: Off vasopressors and extubated. Off vasopressors and extubated. (3) Cellulitis and abscess of buttock: Code(s): L02.31 - Cutaneous abscess of buttock; L03.317 - Cellulitis of buttock Status: Acute (4) COPD (chronic obstructive pulmonary disease): Qualifiers: COPD type: unspecified COPD Qualified Code(s): J44.9 - Chronic obstructive pulmonary disease, unspecified Code(s): J44.9 - Chronic obstructive pulmonary disease, unspecified Status: Chronic (5) CVA (cerebral vascular accident): Code(s): I63.9 - Cerebral infarction, unspecified Status: Acute Assessment and Plan: Due to history of stroke she was restarted on Eliquis. (6) Hypertension: Code(s): I10 - Essential (primary) hypertension Status: Acute Assessment and Plan: BP is currently normal. Will need to resume home BP medications as needed. (7) CAD (coronary artery disease), autologous vein bypass graft: Code(s): I25.810 - Atherosclerosis of coronary artery bypass graft(s) without angina pectoris Status: Acute Assessment and Plan: Thickened mitral valve and MAC suggest mitral valve repair or bioprosthesis. (8) Morbid obesity with BMI of 45.0-49.9, adult: Code(s): E66.01 - Morbid (severe) obesity due to excess calories; Z68.42 - Body mass index (BMI) 45.0-49.9, adult Status: Acute (9) Obstructive sleep apnea: Code(s): G47.33 - Obstructive sleep apnea (adult) (pediatric) Status: Acute (10) Aortic stenosis, moderate: Code(s): I35.0 - Nonrheumatic aortic (valve) stenosis Status: Acute (11) Diastolic heart failure: Code(s): I50.30 - Unspecified diastolic (congestive) heart failure Status: Acute Assessment and Plan: Replete potassium to keep it around 4.0. (12) PSVT (paroxysmal supraventricular tachycardia): Code(s): I47.1 - Supraventricular tachycardia Status: Acute Assessment and Plan: History of atrial flutter ablation. 8 day event monitor in September 2019 also showed she has PSVT. 12 beat run 01:39 on 12/20/19. Keep Potassium around 4.0 (13) History of mitral valve replacement with bioprosthetic valve: Code(s): Z95.3 - Presence of xenogenic heart valve Status: Acute Subjective Date/time seen: 12/22/19 08:16 Denies chest pain or sob. Exam Const: General: comfortable and no acute distress Neck: Neck: no JVD Resp: Effort & Inspection: normal respiratory effort Auscultation: no crackles, no rales, no rhonchi and no wheezes Cardio: Rate: regular rate Rhythm: regular rhythm GI: Inspection: non-distended Neuro: Speech: normal speech Extrem: Right lower extremity: no edema Left lower extremity: no edema Objective Data Vital Signs Vital Signs: Vital Signs - 24 hr 12/21/19 09:14 12/21/19 12:00 12/21/19 14:50 Temperature 97.4 F L 96.4 F L Pulse Rate 76 79 85 Respiratory Rate 18 18 22 H Blood Pressure 105/50 L 130/56 L Pulse Oximetry 95 96 12/21/19 15:01 12/21/19 16:18 12/21/19 19:09 Temperature 96.0 F L Pulse Rate 82 81 88 Respiratory Rate 22 H 18 20 Blood Pressure 131/68 Pulse Oximetry 95 12/21/19 19:15 12/21/19 19:17 12/21/19 20:30 Temperature Pulse Rate 86 86 Respiratory Rate 20 18 Blood Pressure Pulse Oximetry 94 95 12/21/19 21:49 12/21/19 21:53
[2019-12-22] MEDS: PANTOPRAZOLE SODIUM IV 40 MG VIAL IV PUSH (08:52)
[2019-12-22] MEDS: ATORVASTATIN 40 MG TABLET 80 MG PO (08:53)
[2019-12-22] MEDS: DULoxetine HCL 60 MG CAPSULE.DR PO (08:53)
[2019-12-22] MEDS: ASPIRIN 81 MG CHEWABLE TABLET FEED TUBE (08:53)
[2019-12-22] MEDS: APIXABAN 5 MG TABLET PO ×2 (08:53→20:28)
[2019-12-22] MEDS: cloNIDine HCL 0.2 MG TABLET PO (12:06)
[2019-12-22] MEDS: AMLODIPINE BESYLATE 5 MG TABLET 10 MG PO (12:07)
--- NOTE | 2019-12-22 12:49 | PCDIET ---
Nutrition Follow-Up Complete: Nutrition Diagnosis: Inadequate oral intake related to oral intubation as evidenced by NPO status. Nutrition Goal: Patient to meet estimated nutritional needs. Goal not met. Patient c/o poor appetite. Feels she is doing better with liquids than solids. Agreeable to try oral supplements. Recommend Ensure Clear (240kcal, 8g protein) daily and Keegan (80kcal, 14g amino acid) BID. Last recorded weight is 114.9 kg which is down from last review. Bowel Motility: Last reported BM on 12/21/19. Labs Reviewed: Hgb (8.8), Hct (28.9), Glu (115), BUN (6), Cr (1.1) Meds Noted: Albuterol, Atrovent, Flagyl, Protonix, KCl, Vancomycin Additional Notes: Dressing changes to left buttock area noted. Encouraged increased kcal/protein intake for wound healing. Nutrition Monitoring and Evaluation: Follow up every 3 days.
[2019-12-22] MEDS: GABAPENTIN 100 MG CAPSULE PO (17:25)
[2019-12-22] MEDS: ALBUTEROL SULFATE NEB 2.5 MG/0.5 ML INH 1.25 MG INHALATION (19:45)
--- NOTE | 2019-12-22 21:55 | PM.IMPN ---
Progress Note: A&P Assessment and Plan (1) Septic shock: Code(s): A41.9 - Sepsis, unspecified organism; R65.21 - Severe sepsis with septic shock Status: Acute Assessment and Plan: Due to cellulitis and/or abscess of buttock, perirectal Continue broad-spectrum antibiotic coverage. Vanc and flagyl D#6 BC NG but wound MRSA , strep and Erika frag. pressors now off.12/18 out of ICU 12/19, wbc now normal (2) Cellulitis and abscess of buttock: Code(s): L02.31 - Cutaneous abscess of buttock; L03.317 - Cellulitis of buttock Status: Acute Assessment and Plan: The patient on flagyl and vancomycin. D#6 cultures as above. . Blood cultures from outside facility are negative to date. general surgery I&D ed 12/17 and further cultures obtained and repeat dressing change now tid (3) Elevated troponin: Code(s): R79.89 - Other specified abnormal findings of blood chemistry Status: Acute Assessment and Plan: secondary to demand ischemia from the patient's septic shock and hypotension.. Not secondary to acute plaque rupture. ehco normal EF with no wall motion abnormalities but moderate aortic stenosis (4) Anemia: Code(s): D64.9 - Anemia, unspecified Status: Acute Assessment and Plan: follow and Fe studies look to be anemia of chronic disease. , hgb 8.8 today (5) DVT prophylaxis: Code(s): Z29.9 - Encounter for prophylactic measures, unspecified Status: Acute Assessment and Plan: chronic apixaban with hx of a flutter (6) Hypertension: Code(s): I10 - Essential (primary) hypertension Status: Acute Assessment and Plan: with bp rising clonidine and amlodipine restarted today 12/21 Subjective Date/time seen: 12/22/19 21:55 Interval history: Date of visit 12/21. Hypertensive white female with history diastolic heart failure admitted with cellulitis abscess perirectal and sepsis with hypotension. Extubated pm 12/18 off pressors and lying prone in bed for comfort from the abscess. still some pain but better Exam Narrative: Exam Narrative: PHYSICAL EXAM: Blood pressure 162/72 pulse 80 saturating 95% on RA afebrile General: lying prone in bed HEENT: , no scleral icterus Neck: Large neck circumference no significant lymphadenopathy, Respiratory: Clear to auscultation bilaterally Cardiovascular: Systolic murmur, 2+ bilateral pedal pulses Gastrointestinal: Obese, nontender, nondistended, positive bowel sounds Skin: wound left buttock , clean but somewhat deep, watched surgeon repack wound 12/20 and nurses changing with 4x4 gauze tid now Extremities: Chronic venous stasis changes ,mild bilateral lower extremities, no pitting edema, Neurological: more alert each day Objective Data Vital Signs Vital Signs: Vital Signs - 24 hr 12/22/19 02:08 12/22/19 02:13 12/22/19 02:19 Temperature 36.2 C L Pulse Rate 88 90 86 Respiratory Rate 18 18 18 Blood Pressure 128/73 Pulse Oximetry 95 12/22/19 05:59 12/22/19 07:37 12/22/19 07:45 Temperature 36.1 C L Pulse Rate 84 80 77 Respiratory Rate 18 18 18 Blood Pressure 102/66 Pulse Oximetry 95 95 12/22/19 10:15 12/22/19 10:51 12/22/19 14:00 Temperature 36.7 C 36.8 C Pulse Rate 80 81 Respiratory Rate 16 16 Blood Pressure 162/73 H 141/59 H 122/42 L Pulse Oximetry 97 94 12/22/19 18:00 12/22/19 19:45 12/22/19 19:56 Temperature 36.8 C Pulse Rate 82 75 77 Respiratory Rate 18 18 18 Blood Pressure 130/64 Pulse Oximetry 96 12/22/19 20:00 Temperature 37.3 C Pulse Rate 84 Respiratory Rate 25 H Blood Pressure 130/64 Pulse Oximetry 97 Intake/Output Intake/Output: Intake & Output 12/19/19 12/20/19 12/21/19 12/22/19 23:59 23:59 23:59 23:59 Intake Total 2080 2140 2380 2355 Output Total 3400 3325 1840 2800 Balance -1327 -7547 933 -855 Meds/Results Medications: Active Medications Generic Name Dose Route Start Last Admin Trade
[2019-12-23] VITALS (16 sets, daily range): BP systolic 137–159; BP diastolic 60–75; PULSE 67–88; RESP 16–22; TEMP 36–36.8; O2SAT 93–98
[2019-12-23] MEDS: IPRATROPIUM BR 0.02% INH SOLN 0.5 MG/2.5 ML VIAL INHALATION ×4 (01:28→21:17)
[2019-12-23] MEDS: MORPHINE SULFATE 2 MG/ML INJ 1 MG IV PUSH (02:28)
[2019-12-23] MEDS: PRAMIPEXOLE 0.125 MG TABLET PO ×4 (03:35→16:53)
[2019-12-23 04:50] LABS: Basophils Percent Auto 0.1 % (0.2-1.2); Eosinophils Absolute Auto 0.1 K/mm3 (0-0.3); Hematocrit 28.9 % (37.0-47.0); Hemoglobin 8.8 g/dL (12.0-15.0); Immature Granulocyte Absolute 0.51 K/mm3 (0.00-0.031); Immature Granulocyte Percent A 5.8 % (0-0.5); Lymphocytes Absolute Auto 1.45 K/mm3 (0.9-3.2); Lymphocytes Percent Auto 16.4 % (18.3-44.2); Mean Corpuscular HGB Conc 30.4 g/dl (32-36); Mean Corpuscular Hemoglobin 27.4 pg (26-34); Mean Platelet Volume 10.2 fl (7.4-10.4); Monocytes Absolute Auto 1.2 K/mm3 (0.1-0.6); Monocytes Percent Auto 13.5 % (2.6-8.5); Neutrophils Absolute Auto 5.6 K/mm3 (1.3-6.7); Neutrophils Percent Auto 63.2 % (45.5-73.1); Platelet Count Result 248 k/mm3 (150-375); Red Blood Count 3.21 M/mm3 (4.2-5.4); Red Cell Distribution Width 15.3 % (11.5-14.5); White Blood Count 8.8 K/mm3 (4.5-10.0)
[2019-12-23 05:01] LABS: Blood Urea Nitrogen 5 mg/dL (7-17); Calcium 8.2 mg/dL (8.4-10.2); Carbon Dioxide 32 mmol/L (22-30); Chloride 104 mmol/L (98-107); Estimated CRCL calculation 56 ml/min; Estimated Glomerular Filt Rate 50; Glucose 136 mg/dL (65-105); Potassium 3.5 mmol/L (3.4-5.0); Sodium 140 mmol/L (137-145)
[2019-12-23 05:15] LABS: Vancomycin Trough 22.7 ug/mL (10.0-20.0)
--- NOTE | 2019-12-23 07:22 | PM.PNGS ---
Progress Note: A&P Assessment and Plan (1) Perirectal abscess: Code(s): K61.1 - Rectal abscess Status: Acute Assessment and Plan: Plan to leave see time and place for 3 weeks. Patient will go home with it. Continue dry gauze dressings but packed deep into the wound t.i.d.. Wound is improved. Continue inpatient care for now. Ambulate and continue physical therapy. (2) Anticoagulant long-term use: Code(s): Z79.01 - residential (current) use of anticoagulants Status: Chronic Assessment and Plan: Apixaban has been restarted. Monitor for bleeding. (3) Chronic diastolic (congestive) heart failure: Code(s): I50.32 - Chronic diastolic (congestive) heart failure Status: Acute (4) PSVT (paroxysmal supraventricular tachycardia): Code(s): I47.1 - Supraventricular tachycardia Status: Acute (5) Aortic stenosis, moderate: Code(s): I35.0 - Nonrheumatic aortic (valve) stenosis Status: Acute (6) Morbid obesity with BMI of 45.0-49.9, adult: Code(s): E66.01 - Morbid (severe) obesity due to excess calories; Z68.42 - Body mass index (BMI) 45.0-49.9, adult Status: Acute (7) Obstructive sleep apnea: Code(s): G47.33 - Obstructive sleep apnea (adult) (pediatric) Status: Acute Subjective Subjective Date/Time Seen: 12/23/19 07:22 Post Op day: Six Patient reports: no new complaints and still having pain Exam GI: Rectal Exam: buttock abscess ( drained effectively, no purulence, large open wound to manage.) Other: Perianal wound looks better today but not being packed into the depths of the wound. I redressed and showed nursing that the 4x4s need to passed deep into the wound so that all wound surfaces are being covered. Overall it does look better today with less mucus and exudate. Objective Data Vital Signs Vital Signs: Vital Signs - 24 hr 12/22/19 07:37 12/22/19 07:45 12/22/19 10:15 Temperature 36.7 C Pulse Rate 80 77 80 Respiratory Rate 18 18 16 Blood Pressure 162/73 H Pulse Oximetry 95 97 12/22/19 10:51 12/22/19 14:00 12/22/19 18:00 Temperature 36.8 C 36.8 C Pulse Rate 81 82 Respiratory Rate 16 18 Blood Pressure 141/59 H 122/42 L 130/64 Pulse Oximetry 94 96 12/22/19 19:45 12/22/19 19:56 12/22/19 20:00 Temperature 37.3 C Pulse Rate 75 77 84 Respiratory Rate 18 18 25 H Blood Pressure 130/64 Pulse Oximetry 97 12/23/19 00:00 12/23/19 01:29 12/23/19 01:40 Temperature 36.8 C Pulse Rate 88 82 88 Respiratory Rate 20 18 18 Blood Pressure 145/68 H Pulse Oximetry 96 12/23/19 04:00 Temperature 36.0 C L Pulse Rate 86 Respiratory Rate 21 H Blood Pressure 152/63 H Pulse Oximetry 94 Intake/Output Intake/Output: Intake & Output 12/20/19 12/21/19 12/22/19 12/23/19 23:59 23:59 23:59 23:59 Intake Total 2140 2380 2355 760 Output Total 3325 1840 2800 200 Balance -1185 540 -445 560 Meds/Results Medications: Active Medications Generic Name Dose Route Start Last Admin Trade Name Freq PRN Reason Stop Dose Admin Acetaminophen 650 mg 12/17/19 11:03 12/22/19 00:17 Tylenol Elixir PO 650 mg Q4H PRN Administration MILD PAIN OR Fever Albuterol 1.25 mg 12/17/19 10:59 12/22/19 19:45 Albuterol Sulf Neb 2.5mg/0.5ml INHALATION 1.25 mg Q6HRT PRN Administration Shortness Of Breath Amlodipine Besylate 10 mg 12/22/19 10:50 12/22/19 12:07 Norvasc PO 10 mg QAM MIK Administration Apixaban 5 mg 12/19/19 21:00 12/22/19 20:28 Eliquis PO 5 mg Q12HR MIK Administration Aspirin 81 mg 12/18/19 11:05 12/22/19 08:53 Aspirin Chewable FEED TUBE 81 mg DAILY@0800 MIK Administration Atorvastatin Calcium 80 mg 12/20/19 09:00 12/22/19 08:53 Lipitor PO 80 mg DAILY MIK Administration Clonidine HCl 0.2 mg 12/22/19 10:55 12/22/19 12:06 Catapres PO 0.2 mg DAILY MIK Administration Duloxetine HCl 60 mg 12/17/19 09:00
[2019-12-23] MEDS: APIXABAN 5 MG TABLET PO ×2 (08:29→20:53)
[2019-12-23] MEDS: PANTOPRAZOLE SODIUM IV 40 MG VIAL IV PUSH (08:29)
[2019-12-23] MEDS: cloNIDine HCL 0.2 MG TABLET PO (08:29)
[2019-12-23] MEDS: GABAPENTIN 100 MG CAPSULE PO ×3 (08:29→16:53)
[2019-12-23] MEDS: AMLODIPINE BESYLATE 5 MG TABLET 10 MG PO (08:29)
[2019-12-23] MEDS: ATORVASTATIN 40 MG TABLET 80 MG PO (08:29)
[2019-12-23] MEDS: ASPIRIN 81 MG CHEWABLE TABLET FEED TUBE (08:30)
[2019-12-23] MEDS: ACETAMINOPHEN ELIXIR 325 MG/10.15 ML UDC 650 MG PO (08:33)
[2019-12-23] MEDS: DULoxetine HCL 60 MG CAPSULE.DR PO (08:36)
--- NOTE | 2019-12-23 08:36 | PM.PNCARD ---
Progress Note: A&P Assessment and Plan (1) Elevated troponin: Code(s): R79.89 - Other specified abnormal findings of blood chemistry Status: Acute Assessment and Plan: Likely due to type II infarct related to septic shock/infection. No ACS based on no wall motion abnormality on echo and no ischemia on EKG. Troponin peaked at 0.2. On aspirin and Atorvastatin. No further cardiac workup is needed. (2) Septic shock: Code(s): A41.9 - Sepsis, unspecified organism; R65.21 - Severe sepsis with septic shock Status: Acute Assessment and Plan: Off vasopressors and extubated. (3) Cellulitis and abscess of buttock: Code(s): L02.31 - Cutaneous abscess of buttock; L03.317 - Cellulitis of buttock Status: Acute (4) COPD (chronic obstructive pulmonary disease): Qualifiers: COPD type: unspecified COPD Qualified Code(s): J44.9 - Chronic obstructive pulmonary disease, unspecified Code(s): J44.9 - Chronic obstructive pulmonary disease, unspecified Status: Chronic (5) CVA (cerebral vascular accident): Code(s): I63.9 - Cerebral infarction, unspecified Status: Acute Assessment and Plan: Due to history of stroke she was restarted on Eliquis. (6) Hypertension: Code(s): I10 - Essential (primary) hypertension Status: Acute Assessment and Plan: High. Resumed BP medications including Clonidine 0.2 mg daily and Amlodipine on 12/22/19. Start Losartan 25 mg daily. (7) CAD (coronary artery disease), autologous vein bypass graft: Code(s): I25.810 - Atherosclerosis of coronary artery bypass graft(s) without angina pectoris Status: Acute Assessment and Plan: Thickened mitral valve and MAC suggest mitral valve repair or bioprosthesis. (8) Morbid obesity with BMI of 45.0-49.9, adult: Code(s): E66.01 - Morbid (severe) obesity due to excess calories; Z68.42 - Body mass index (BMI) 45.0-49.9, adult Status: Acute (9) Obstructive sleep apnea: Code(s): G47.33 - Obstructive sleep apnea (adult) (pediatric) Status: Acute (10) Aortic stenosis, moderate: Code(s): I35.0 - Nonrheumatic aortic (valve) stenosis Status: Acute (11) Diastolic heart failure: Code(s): I50.30 - Unspecified diastolic (congestive) heart failure Status: Acute Assessment and Plan: Replete potassium to keep it around 4.0. (12) PSVT (paroxysmal supraventricular tachycardia): Code(s): I47.1 - Supraventricular tachycardia Status: Acute Assessment and Plan: History of atrial flutter ablation. 8 day event monitor in September 2019 also showed she has PSVT. 12 beat run 01:39 on 12/20/19. Keep Potassium around 4.0 (13) History of mitral valve replacement with bioprosthetic valve: Code(s): Z95.3 - Presence of xenogenic heart valve Status: Acute (14) CAD of autologous artery bypass graft without angina: Code(s): I25.810 - Atherosclerosis of coronary artery bypass graft(s) without angina pectoris Status: Acute Subjective Date/time seen: 12/23/19 08:36 Denies chest pain or sob. Exam Const: General: comfortable and no acute distress Neck: Neck: no JVD Resp: Auscultation: no crackles, no rales, no rhonchi and wheezes (Mild wheezing right lung) Cardio: Rate: regular rate GI: Inspection: non-distended Neuro: Speech: normal speech Extrem: Right lower extremity: no edema Left lower extremity: no edema Objective Data Vital Signs Vital Signs: Vital Signs - 24 hr 12/22/19 10:15 12/22/19 10:51 12/22/19 14:00 Temperature 98.1 F 98.2 F Pulse Rate 80 81 Respiratory Rate 16 16 Blood Pressure 162/73 H 141/59 H 122/42 L Pulse Oximetry 97 94 12/22/19 18:00 12/22/19 19:45 12/22/19 19:56 Temperature 98.3 F Pulse Rate 82 75 77 Respiratory Rate 18 18 18 Blood Pressure 130/64 Pulse Oximetry 96 12/22/19 20:00 12/23/19 00:00 12/23/19 01:29 Temperatur
[2019-12-23] MEDS: metroNIDAZOLE 500 MG/ISO 100ML 500 MG/100 ML BAG 100 MG IVPB ×3 (08:37→23:54)
[2019-12-23] MEDS: LOSARTAN POTASSIUM 25 MG TABLET PO (09:39)
--- NOTE | 2019-12-23 11:26 | PCNFU ---
Nutrition Follow-Up Complete: Inadequate oral intake related to oral intubation as evidenced by NPO status. Goal: Patient to meet estimated nutritional needs. Limited progress towards goal. We will continue current goal. Pt current nutrition is 4 gm Na. Nutrition recommendation: Agree Last recorded weight is 121.3 kg. Bowel Motility:+BM noted 12/22 Labs Reviewed:BUN 5,Cr 1.0,Hgb 8.8,Hct 28.9 Meds Noted:Protonix,Lipitor Additional Notes: Patient seen today. Oral Intake on 4 gm Na diet has been poor 0% x 3 days. I spoke with patient today regarding possible diet supplement changes. She would like th have the Ensure Clear discontinued. She did drink a sprite last night. We will changed the Keegan to be mixed with sprite. Wounds noted. PO intake is encouraged, patient states to some nausea and decreased appetite. Monitoring: Follow up every 3 days.
--- NOTE | 2019-12-23 14:53 | PM.IMPN ---
Progress Note: A&P Assessment and Plan (1) Septic shock: Code(s): A41.9 - Sepsis, unspecified organism; R65.21 - Severe sepsis with septic shock Status: Acute Assessment and Plan: Due to cellulitis and perirectal abscess of buttock. BC NG but wound MRSA, strep and Bacteroides frag. Pressors off since 12/19/19 and out of ICU since 12/20/19. Continue broad-spectrum antibiotic coverage. Vanc and flagyl D#7. (2) Cellulitis and abscess of buttock: Code(s): L02.31 - Cutaneous abscess of buttock; L03.317 - Cellulitis of buttock Status: Acute Assessment and Plan: General surgery I&D 12/17 and further cultures obtained and repeat dressing change now tid. Recovering well. Cultures noted. Will continue flagyl and vancomycin. D#7. (3) Elevated troponin: Code(s): R79.89 - Other specified abnormal findings of blood chemistry Status: Acute Assessment and Plan: Secondary to demand ischemia from the patient's septic shock and hypotension. Not felt to be secondary to acute plaque rupture. Ehco normal EF with no wall motion abnormalities but moderate aortic stenosis. Continue ASA. (4) Anemia: Code(s): D64.9 - Anemia, unspecified Status: Acute Assessment and Plan: Patient with chronic anemia. Workup consistent with anemia of chronic disease. Hgb stable 8.8. (5) DVT prophylaxis: Code(s): Z29.9 - Encounter for prophylactic measures, unspecified Status: Acute Assessment and Plan: Patient on chronic apixaban with hx of a flutter. (6) Hypertension: Code(s): I10 - Essential (primary) hypertension Status: Acute Assessment and Plan: BP reviewed on 12/23/19. BP well controlled. Will continue clonidine, losartan and amlodipine. Subjective Date/time seen: 12/23/19 14:53 Interval history: Date of visit 12/22. 69yo female with hx of HTN, dCHF here for septic shock from cellulitis and perirectal abscess. Assuming care. Chart reviewed. Patient admitted December 16 and subsequently intubated and later that morning. She required pressor therapy for the septic shock. She was extubated pm 12/18 and able to be weaned off pressors. Patient slept poorly last night because of her restless leg syndrome. Mirapex had been held but this was restarted with benefit. She notices decreased appetite with nausea. No vomiting. She denies shortness of breath. She denies chest pain. No abdominal pain. Perirectal pain is improved. Exam Narrative: Exam Narrative: AF 137/64 75 18 Gen - NARD Neck - right TLC in place. Chest - CTA bilaterally, nml RR CV - RRR S1/S2 Abd - Soft, NT/ND, Positive BS -left perirectal wound is packed with serosanguineous drainage. No significant surrounding erythema. Ext -trace pedal edema Neuro - Alert and oriented. Nonfocal exam. Psych - Nml mood and affect Skin -as above. Objective Data Vital Signs Vital Signs: Vital Signs - 24 hr 12/22/19 18:00 12/22/19 19:45 12/22/19 19:56 Temperature 98.3 F Pulse Rate 82 75 77 Respiratory Rate 18 18 18 Blood Pressure 130/64 Pulse Oximetry 96 12/22/19 20:00 12/23/19 00:00 12/23/19 01:29 Temperature 99.1 F 98.2 F Pulse Rate 84 88 82 Respiratory Rate 25 H 20 18 Blood Pressure 130/64 145/68 H Pulse Oximetry 97 96 12/23/19 01:40 12/23/19 04:00 12/23/19 08:35 Temperature 96.8 F L 97.6 F Pulse Rate 88 86 75 Respiratory Rate 18 21 H 16 Blood Pressure 152/63 H 139/60 Pulse Oximetry 94 97 12/23/19 09:07 12/23/19 09:09 12/23/19 09:12 Temperature Pulse Rate 81 81 Respiratory Rate 18 18 Blood Pressure Pulse Oximetry 93 12/23/19 12:35 12/23/19 14:14 12/23/19 14:20 Temperature 97.6 F Pulse Rate 74 75 75 Respiratory Rate 16 18 18 Blood Pressure 137/64 Pulse Oximetry 97 Intake/Output Intake/Output: Intake & Output 12/20/19 12/21/19 12/22/19 12/23/19 23:59 23:59 23:59 23:59 Intake Total 2140
--- NOTE | 2019-12-23 15:44 | PCSTNOTE ---
Patient was discharged this date due to no reports of difficulty swallowing over the past two days. Patient can be sleepy at times however nursing on both dates, yesterday and today, report no evidence of coughing or choking or difficulty swallowing thin liquids, pills, or other food items. Discharged with goals achieved.
[2019-12-23] MEDS: MORPHINE SULFATE 2 MG/ML INJ IV PUSH (21:04)
[2019-12-24] VITALS (11 sets, daily range): BP systolic 114–153; BP diastolic 63–70; PULSE 70–87; RESP 16–20; TEMP 35.6–36.9; O2SAT 92–100
[2019-12-24] MEDS: MORPHINE SULFATE 2 MG/ML INJ 1 MG IV PUSH ×2 (00:57→09:14)
[2019-12-24] MEDS: IPRATROPIUM BR 0.02% INH SOLN 0.5 MG/2.5 ML VIAL INHALATION ×3 (02:36→14:04)
[2019-12-24] MEDS: MORPHINE SULFATE 2 MG/ML INJ IV PUSH ×2 (02:57→06:06)
[2019-12-24 06:08] LABS: Hemoglobin 8.9 g/dL (12.0-15.0); Mean Corpuscular HGB Conc 30.7 g/dl (32-36); Mean Corpuscular Hemoglobin 28.1 pg (26-34); Mean Corpuscular Volume 91.5 fl (80-100); Mean Platelet Volume 9.9 fl (7.4-10.4); Platelet Count Result 263 k/mm3 (150-375); Red Blood Count 3.17 M/mm3 (4.2-5.4); Red Cell Distribution Width 15.4 % (11.5-14.5); White Blood Count 8.1 K/mm3 (4.5-10.0)
[2019-12-24 06:22] LABS: Blood Urea Nitrogen 12 mg/dL (7-17); Calcium 8.1 mg/dL (8.4-10.2); Carbon Dioxide 31 mmol/L (22-30); Chloride 103 mmol/L (98-107); Estimated CRCL calculation 56 ml/min; Estimated Glomerular Filt Rate 50; Glucose 118 mg/dL (65-105); Potassium 3.4 mmol/L (3.4-5.0); Sodium 141 mmol/L (137-145)
[2019-12-24] MEDS: ONDANSETRON INJ 4 MG/2 ML VIAL IV PUSH (06:30)
--- NOTE | 2019-12-24 07:46 | PM.PNCARD ---
Progress Note: A&P Assessment and Plan (1) Elevated troponin: Code(s): R79.89 - Other specified abnormal findings of blood chemistry Status: Acute Assessment and Plan: Likely due to type II infarct related to septic shock/infection. No ACS based on no wall motion abnormality on echo and no ischemia on EKG. Troponin peaked at 0.2. On aspirin and Atorvastatin. No further cardiac workup is needed. (2) Septic shock: Code(s): A41.9 - Sepsis, unspecified organism; R65.21 - Severe sepsis with septic shock Status: Acute Assessment and Plan: Off vasopressors and extubated. (3) Cellulitis and abscess of buttock: Code(s): L02.31 - Cutaneous abscess of buttock; L03.317 - Cellulitis of buttock Status: Acute (4) COPD (chronic obstructive pulmonary disease): Qualifiers: COPD type: unspecified COPD Qualified Code(s): J44.9 - Chronic obstructive pulmonary disease, unspecified Code(s): J44.9 - Chronic obstructive pulmonary disease, unspecified Status: Chronic (5) CVA (cerebral vascular accident): Code(s): I63.9 - Cerebral infarction, unspecified Status: Acute Assessment and Plan: Due to history of stroke she was restarted on Eliquis. (6) Hypertension: Code(s): I10 - Essential (primary) hypertension Status: Acute Assessment and Plan: High. Resumed BP medications including Clonidine 0.2 mg daily and Amlodipine on 12/22/19. Increase Losartan 50 mg daily. Stop Clonidine and start Coreg 6.25 mg BID given CAD and PSVT. (7) CAD (coronary artery disease), autologous vein bypass graft: Code(s): I25.810 - Atherosclerosis of coronary artery bypass graft(s) without angina pectoris Status: Acute Assessment and Plan: Thickened mitral valve and MAC suggest mitral valve repair or bioprosthesis. (8) Morbid obesity with BMI of 45.0-49.9, adult: Code(s): E66.01 - Morbid (severe) obesity due to excess calories; Z68.42 - Body mass index (BMI) 45.0-49.9, adult Status: Acute (9) Obstructive sleep apnea: Code(s): G47.33 - Obstructive sleep apnea (adult) (pediatric) Status: Acute (10) Aortic stenosis, moderate: Code(s): I35.0 - Nonrheumatic aortic (valve) stenosis Status: Acute (11) Diastolic heart failure: Code(s): I50.30 - Unspecified diastolic (congestive) heart failure Status: Acute Assessment and Plan: Replete potassium to keep it around 4.0. (12) PSVT (paroxysmal supraventricular tachycardia): Code(s): I47.1 - Supraventricular tachycardia Status: Acute Assessment and Plan: History of atrial flutter ablation. 8 day event monitor in September 2019 also showed she has PSVT. 12 beat run 01:39 on 12/20/19. Keep Potassium around 4.0 (13) History of mitral valve replacement with bioprosthetic valve: Code(s): Z95.3 - Presence of xenogenic heart valve Status: Acute (14) CAD of autologous artery bypass graft without angina: Code(s): I25.810 - Atherosclerosis of coronary artery bypass graft(s) without angina pectoris Status: Acute Subjective Date/time seen: 12/24/19 07:46 Denies chest pain or sob. No edema. Exam Const: General: comfortable and no acute distress Neck: Neck: no JVD Carotids: no bruits Resp: Auscultation: clear to auscultation bilaterally, no crackles, no rales, no rhonchi and no wheezes Cardio: Rate: regular rate Rhythm: regular rhythm GI: Inspection: non-distended Neuro: Speech: normal speech Extrem: Right lower extremity: no edema Left lower extremity: no edema Objective Data Vital Signs Vital Signs: Vital Signs - 24 hr 12/23/19 08:35 12/23/19 09:07 12/23/19 09:09 Temperature 97.6 F Pulse Rate 75 81 Respiratory Rate 16 18 Blood Pressure 139/60 Pulse Oximetry 97 93 12/23/19 09:12 12/23/19 12:35 12/23/19 14:14 Temperature 97.6 F Pulse Rate 81 74 75 Respiratory Rate 18 16 18
[2019-12-24] MEDS: ATORVASTATIN 40 MG TABLET 80 MG PO (09:04)
[2019-12-24] MEDS: ASPIRIN 81 MG CHEWABLE TABLET BY MOUTH (09:04)
[2019-12-24] MEDS: GABAPENTIN 100 MG CAPSULE PO ×2 (09:04→12:25)
[2019-12-24] MEDS: DULoxetine HCL 60 MG CAPSULE.DR PO (09:04)
[2019-12-24] MEDS: APIXABAN 5 MG TABLET PO (09:04)
[2019-12-24] MEDS: LOSARTAN POTASSIUM 50 MG TABLET PO (09:04)
[2019-12-24] MEDS: PANTOPRAZOLE 40 MG TABLET PO (09:04)
[2019-12-24] MEDS: AMLODIPINE BESYLATE 5 MG TABLET 10 MG PO (09:04)
[2019-12-24] MEDS: carvediloL 6.25 MG TABLET PO (09:05)
[2019-12-24] MEDS: PRAMIPEXOLE 0.125 MG TABLET PO ×2 (09:06→12:26)
[2019-12-24] MEDS: metroNIDAZOLE 500 MG/ISO 100ML 500 MG/100 ML BAG 100 MG IVPB (09:06)
--- NOTE | 2019-12-24 11:29 | PM.PNGS ---
Progress Note: A&P Assessment and Plan (1) Perirectal abscess: Code(s): K61.1 - Rectal abscess Status: Acute Assessment and Plan: Will plan to leave seton in place for 3 weeks, therefore she will discharge with this. Continue wound care with dry gauze dressings packed deep into the wound TID. Placed patient back on soft diet for now. Encouraged small/frequent meals to help with appetite. Discussed importance of nutrition with wound healing. Encouraged OOB with meals and increased activity. Continue PT/OT. (2) Anticoagulant long-term use: Code(s): Z79.01 - penitentiary (current) use of anticoagulants Status: Chronic Assessment and Plan: Currently on apixaban. Continue to monitor for bleeding. (3) Chronic diastolic (congestive) heart failure: Code(s): I50.32 - Chronic diastolic (congestive) heart failure Status: Acute (4) PSVT (paroxysmal supraventricular tachycardia): Code(s): I47.1 - Supraventricular tachycardia Status: Acute (5) Aortic stenosis, moderate: Code(s): I35.0 - Nonrheumatic aortic (valve) stenosis Status: Acute (6) Morbid obesity with BMI of 45.0-49.9, adult: Code(s): E66.01 - Morbid (severe) obesity due to excess calories; Z68.42 - Body mass index (BMI) 45.0-49.9, adult Status: Acute (7) Obstructive sleep apnea: Code(s): G47.33 - Obstructive sleep apnea (adult) (pediatric) Status: Acute Additional Plan Discussed the patient's plan of care with Dr. Delvalle. Subjective Subjective Date/Time Seen: 12/24/19 11:00 Post Op day: 7 Patient reports: feels better and pain is less Interval history: Patient lying in the bed today and reports feeling much better today than the past few days. She reports an episode mild nausea earlier this morning, but this resolved and she is no longer feeling nauseous. No vomiting. She attributes this to taking oral medications on an empty stomach. Bowels have been moving with a bowel movement today. Reports her incisional pain has improved significantly and she was able to get up to the chair today. Reports poor appetite with low oral intake. No other complaints at this time. Review of Systems Review of Systems: All systems reviewed & are unremarkable except as noted in HPI and below Constitutional: Constitutional: Reports no additional constitutional complaints, Denies chills and Denies fever(s) Cardiovascular: Cardiovascular: Reports no additional cardiovascular complaints and Denies chest pain Respiratory: Respiratory: Reports no additional respiratory complaints, Denies cough and Denies dyspnea Gastrointestinal: Gastrointestinal: Reports as per HPI and Reports no additional gastrointestinal complaints Exam Const: General: no acute distress, alert and awake Nutritional Appearance: obese Orientation/consciousness: patient oriented x3 GI: Inspection: non-distended and obesity GI Palp: No abdominal tenderness, Yes Soft to palpation, No Guarding due to palpation present (GI) and No Rebound tenderness present Auscultation: normal bowel sounds Rectal Exam: other ( drainage and exudate noted, generally clean with no evidence of purulence) Other: Perianal dressing clean, dry, and intact. Skin: General skin exam: normal color Neuro: General: moves all extremities and no focal motor deficits Extrem: General: no clubbing, cyanosis or edema and no calf tenderness Psych: Attitude: cooperative Thought process: Normal thought process present Insight: Good insight present (Psych) Judgement: Good judgement present (Psych) Objective Data Vital Signs Vital Signs: Vital Signs - 24 hr 12/23/19 12:35 12/23/19 14:14 12/23/19 14:20 Temperature 97.6 F Pulse Rate 74 75 75 Respiratory Rate 16 18 18 Blood Pressure 137/64 Pulse Oximetry 97 12/23/19 16:00 12/23/19 21:19 12/23/19 21:21 Temperature 98.0 F Pulse Rate 87 77 Respiratory Rate 22 H 18 Blood Pressure 146/62
[2019-12-24 13:29] LABS: SARS-CoV-2 RNA PCR Negative
--- NOTE | 2019-12-24 14:34 | PC.NURSE ---
Pt stated was having issues at home with grandchildren and the pt boyfriend. Pt anxious to go home. Reported to this to the care coordination.
--- NOTE | 2019-12-24 15:55 | PM.DS ---
DS: Admitting Diagnosis Admitting Diagnosis Admitting Diagnosis: Sepsis, unspecified organism DS: Discharge Diagnosis Discharge Diagnosis (1) Septic shock: Code(s): A41.9 - Sepsis, unspecified organism; R65.21 - Severe sepsis with septic shock Status: Acute Assessment and Plan: Due to cellulitis and perirectal abscess of buttock. BCx negative but wound culture groiwng MRSA, strep and Bacteroides frag. Pressors off since 12/19/19 and out of ICU since 12/20/19. Treated with broad-spectrum antibiotic coverage. Vanc and flagyl D#8. (2) Cellulitis and abscess of buttock: Code(s): L02.31 - Cutaneous abscess of buttock; L03.317 - Cellulitis of buttock Status: Acute Assessment and Plan: General surgery I&D 12/17 and further cultures obtained and repeat dressing change now tid. Recovering well. Cultures noted. Treated with flagyl and vancomycin. D#8. (3) Elevated troponin: Code(s): R79.89 - Other specified abnormal findings of blood chemistry Status: Acute Assessment and Plan: Secondary to demand ischemia from the patient's septic shock and hypotension. Not felt to be secondary to acute plaque rupture. Echo with normal EF with no wall motion abnormalities but moderate aortic stenosis. Continue ASA. (4) Anemia: Code(s): D64.9 - Anemia, unspecified Status: Acute Assessment and Plan: Patient with chronic anemia. Workup consistent with anemia of chronic disease. Hgb stable in the 8 range (5) DVT prophylaxis: Code(s): Z29.9 - Encounter for prophylactic measures, unspecified Status: Acute Assessment and Plan: Patient on chronic apixaban with hx of a flutter. (6) Hypertension: Code(s): I10 - Essential (primary) hypertension Status: Acute Assessment and Plan: BP monitored closely. BP well controlled. We were able to resume home meds. Meds adjsusted per cardiology. DS: Summary Hospital Course Reason for hospitalization: 69yo female here for septic shock from buttock cellulitis and perirectal abscess. Please see H&P for details. Hospital Course: As above Time Spent with Patient Time attestation: Total time spent providing and/or coordinating discharge services:35 minutes Time spent: Greater than 30 minutes Specific discharge activities: Discussed with Cardiology Exam Narrative: Exam Narrative: AF 114/63 81 16 Gen - NARD Neck - right TLC in place. Chest - CTA bilaterally, nml RR CV - RRR S1/S2 Abd - Soft, NT/ND, Positive BS -left buttock dressing clean and dry Ext -trace pedal edema Psych - Nml mood and affect Skin - warm and dry DS: Data Data Completed and Pending Labs on day of discharge: Labs from last 24 hours 12/24/19 12/24/19 12/24/19 06:00 06:00 01:57 WBC 8.1 RBC 3.17 L Hgb 8.9 L Hct 29.0 L MCV 91.5 MCH 28.1 MCHC 30.7 L RDW 15.4 H Plt Count 263 MPV 9.9 Sodium 141 Potassium 3.4 Chloride 103 Carbon Dioxide 31 H BUN 12 D Creatinine 1.10 H Estim Creat Clear Calc 56 Estimated GFR 50 L Glucose 118 H Calcium 8.1 L SARS-CoV-2 RNA (RT-PCR) Negative Discharge Plan Discharge Attending physician on discharge: Praful Vidal Consulting providers: To Mobley ; Hiren Mccloud Discharging Clinician: Praful Vidal Anticipated Discharge Date/Time: 12/24/19 16:02 Patient Disposition: Home, Self-Care Activity: may shower Diet: heart healthy Wound Care Instructions: other - see discharge instructions Discharge Instructions: if patient has a tub at home, she should remove dressings and sit in comfortably warm water twice a day to soak the perirectal wound. If no tub, or patient can't get into a tub, shower and wash the perineum and perirectal area at least once a day and after bowel movement. Continue to pack the wound twice a day with dry gauze. See Dr. mobley in
== END 2019-12-24 18:50 | disposition home or self-care (01) | DRG 853 ==
LOC: ANHED 01:19 → ANHICU 06:39 → ANH3MED 12-21 00:07 → ANHICU 12-25 12:29
PROVIDERS: Internal Medicine; Internal Medicine Cardiovascular Disease; Internal Medicine Critical Care Medicine; Surgery; Admitting Provider Internal Medicine; Emergency Provider Emergency Medicine; PCP Nurse Practitioner Family; Visit Provider Internal Medicine
PROC: 0JB90ZZ Excision of Buttock Subcutaneous Tissue and Fascia, Open Approach (ICD-10-PCS; CPT 46040; principal; 2019-12-17 13:30)
DX: A41.9 Sepsis, unspecified organism (principal); R65.21 Severe sepsis with septic shock; K61.1 Rectal abscess; L03.317 Cellulitis of buttock; I48.92 Unspecified atrial flutter; Z68.42 Body mass index [BMI] 45.0-49.9, adult; I50.32 Chronic diastolic (congestive) heart failure; I24.8 Other forms of acute ischemic heart disease; J44.9 Chronic obstructive pulmonary disease, unspecified; I50.9 Heart failure, unspecified; E66.01 Morbid (severe) obesity due to excess calories; G47.33 Obstructive sleep apnea (adult) (pediatric); I11.0 Hypertensive heart disease with heart failure; Z96.653 Presence of artificial knee joint, bilateral; Z86.73 Personal history of transient ischemic attack (TIA), and cerebral infarction without residual deficits; D64.9 Anemia, unspecified; Z03.818 Encounter for observation for suspected exposure to other biological agents ruled out
CPT/HCPCS: 31500; 36415; 36556; 36600; 71045; 71046; 74177; 80048; 80202; 81001; 82375; 82607; 82728; 82805; 83050; 83540; 83550; 83605; 83735; 83880; 84100; 84484; 85025; 85027; 85610; 85730; 86140; 87040; 87070; 87075; 87076; 87147; 87186; 87205; 87635; 92526; 92610; 93005; 93306; 94002; 94003; 94640; 94660; 96361; 96365; 97110; 97116; 97162; 97165; 97166; 97530; 97535; 99291; A9270; C1751; C9113; C9803; J1940; J2250; J2270; J2370; J2405; J2543; J3010; J3370; J3475; J3480; J7030; J7050; J7060; Q9967; U0003

== ENCOUNTER 2020-03-06 08:21 | Observation (INO) | payer MEDICARE, SELFPAY ==
[2020-03-06] VITALS (8 sets, daily range): BP systolic 120–155; BP diastolic 59–76; PULSE 78–100; RESP 16–20; TEMP 35.6–37; O2SAT 96–99; BMI 43.7
--- NOTE | ~2020-03-06 | XR_ITS ---
XR chest 1V portable DATE: 03/06/2020 12:30 INDICATION: Shortness of breath TECHNIQUE: Portable AP chest on 03/06/2020 at 1233 hours COMPARISON: 12/20/2019 portable AP chest at 0511 hours FINDINGS: Status post sternotomy. Cardiomegaly. There is mild pulmonary vascular congestion and redis tribution. Small pleural effusions are suggested. Mild infiltrate or atelectasis is suggested at the lung bases, left greater than right. Diffuse osteopenia. IMPRESSION: Cardiomegaly, mild congestive heart failure, improved since 12/20/2019 Mild basilar infiltrate or atelectasis Reviewed, dictated and finalized at [facility]. IMPRESSION: Cardiomegaly, mild congestive heart failure, improved since 0 Mild basilar infiltrate or atelectasis
--- NOTE | ~2020-03-06 | CT_ITS ---
EXAMINATION: CT abdomen pelvis w con DATE: 03/06/2020 10:02 INDICATION: Low back pain for one day, anemia. Patient on anticoagulant therapy. TECHNIQUE: Computed tomography (CT) of the abdomen and pelvis was performed with 100 cc Omnipaque 350 intravenous contrast. Automated exposure control and iterative reconstruction technique were employe d. Exam dose: 1376.76 mGy-cm total exam DLP. COMPARISON: 12/17/2019 CT abdomen and pelvis FINDINGS: There are calcified left lower lobe pulmonary granulomas and numerous calcified splenic and occasional hepatic calcified granuloma, consistent with old granulomatous disease. No pulmonary infiltrate or consolidation is noted at the lung bases. Sternotomy and probable mitral v alve replacement. No pericardial or pleural effusion. Status post cholecystectomy. No hepatic space-occupying mass lesion or intrahepatic or extrahepatic b ile duct dilatation. Normal splenic size. No pancreatic mass lesion, calcification or ductal dilatati on. The adrenal glands are normal. A small cyst is identified in each kidney. No urinary tract calculus or hydroureteronephrosis. Normal caliber of the abdominal aorta. There is prominent calcification at the origins of both renal arteries. No abdominal aortic aneurysm. No intraperitoneal or retroperitoneal or pelvic mass lesion o r adenopathy or ascites. Status post hysterectomy. The urinary bladder is unremarkable. There is diverticulosis of the colon; no CT evidence of diverticulitis. No bowel obstruction, bowel w all thickening, pneumatosis or intraperitoneal free air is detected. There are fat-containing infraumbilical left parasagittal ventral abdominal wall hernias. There are degenerative changes of the thoracic and lumbar spine. No suspicious osteolytic or osteobla stic lesions are noted. IMPRESSION: Degenerative changes of the thoracic and lumbar spine Status post cholecystectomy Status post hysterectomy Small cyst in each kidney Diverticulosis of colon Reviewed, dictated and finalized at [facility]. Reviewed, dictated and finalized at [facility].
--- NOTE | 2020-03-06 08:34 | ED.BACK ---
HPI - Back Pain/Injury General Chief Complaint: Back Pain/Injury Stated Complaint: back pain Time Seen by Provider: 03/06/20 08:34 Source: patient Mode of arrival: ambulatory Limitations: no limitations History of Present Illness HPI Narrative: 70-year-old woman with a history of restless leg syndrome comes in today complaining of low back pain that was 1st and 1 leg, then the other. She stated started about 11:00 pm Last night. She denies falls or injuries. She states that she has some nausea that she attributes to the pain. She states the pain is in her low back on both sides and while she has had no back pain before she states that has never been this bad. She states that sometimes her restless leg syndrome contributes to her back pain. She denies dysuria, hematuria, fever, vomiting, diarrhea, buttock pain, abdominal pain, shortness of breath, chest pain, and cough MD elicited complaint: back pain Pertinent past history: prior back pain and kidney stones Onset (ago): hour(s) (10) Timing: constant Severity: severe Similar Symptoms Previously: Yes Quality: aching Location: right lower back and left lower back Radiation: none Exacerbating factors: supine positioning Relieving factors: sitting upright Associated symptoms: loss of sensation in lower extremities (intermittent) Treatments prior to arrival: NSAIDS Work related injury: No Related Data Home Medications Medication Instructions Recorded Confirmed atorvastatin 80 mg PO DAILY 09/07/19 03/06/20 gabapentin 100 mg capsule 100 mg PO BID 10/10/19 03/06/20 amlodipine 10 mg PO DAILY 12/13/19 03/06/20 potassium chloride 10 meq PO DAILY 12/17/19 03/06/20 Flovent HFA 1 puff INHALATION Q12HR PRN 03/06/20 03/06/20 carvedilol [Coreg] 6.25 mg PO DAILY 03/06/20 03/06/20 Allergies Allergy/AdvReac Type Severity Reaction Status Date / Time methylprednisolone AdvReac Agitated Verified 01/09/20 08:06 [From Solu-Medrol] prochlorperazine AdvReac Unknown Verified 01/09/20 08:06 [From Compazine] Review of Systems Constitutional: Constitutional: Denies chills, Denies fever(s) and Denies weakness ENT: Denies dysphagia, Denies nasal congestion and Denies sore throat Cardiovascular: Cardiovascular: Denies chest pain and Denies radiating jaw, neck or arm pain Respiratory: Respiratory: Denies cough and Denies dyspnea Gastrointestinal: Gastrointestinal: Denies abdominal pain, Denies diarrhea, Reports nausea and Denies vomiting Genitourinary: Genitourinary: Denies hematuria and Denies dysuria Musculoskeletal: Musculoskeletal: Reports as per HPI, Denies arthralgias and Denies joint swelling Integumentary/Breasts: Skin/Breast: Denies pruritus, Denies erythema and Denies rash Neurologic: Denies vertigo, Denies dizziness and Denies syncope Endocrine: Endocrine: Denies polydipsia and Denies polyuria Hematologic/Lymphatic: Hematologic/Lymphatic: Denies easy bleeding and Denies easy bruising Allergic/Immunologic: Allergic/Immunologic: Denies lip swelling and Denies tongue swelling [facility] Past Medical History Medical History Anxiety with depression Aortic valve stenosis Moderate aortic valve stenosis with a peak velocity of 356, mean gradient of 22 with the aortic valve area of 1.2 Asthma Atrial flutter CAP (community acquired pneumonia) Cellulitis and abscess of buttock Congestive heart failure Diastolic congestive heart failure noted on echocardiogram from September 2019, EF of 65-70%, moderately increased left ventricular wall thickness, E/e'significantly elevated at 30 COPD (chronic obstructive pulmonary disease) Coronary artery disease CVA (cerebral vascular accident) Dietary counseling and surveillance DVT prophylaxis Elevated d-dimer Elevated troponin Excessive daytime sleepiness GERD (gastroesophageal reflux disease) Hypercholesteremia Hypertension Hypokalemia Mild pulmonary hypertension Noted on echocar
[2020-03-06] MEDS: HYDROcodone/acetaminophen (*CRX) 5-325 MG TABLET 1 TAB PO (08:51)
[2020-03-06 08:52] LABS: Add Urine Microscopic? YES; Appearance Urine Clear (Clear); Bilirubin Urine Negative (Negative); Blood Urine Negative (Negative); Color Urine Yellow (Yellow); Glucose Urine UA Negative (Negative); Ketones Urine Trace (Negative); Leukocyte Esterase Ur Negative (Negative); Nitrate Urine Negative (Negative); Protein Urine Negative (Negative); Specific Grav Ur 1.025 (1.010-1.020); Urobilinogen Urine 0.2 mg/dL (0.2-1.0)
[2020-03-06] MEDS: ONDANSETRON HCL ODT 4 MG TABLET PO (08:52)
[2020-03-06] MEDS: PRAMIPEXOLE 0.125 MG TABLET PO ×3 (08:54→16:47)
[2020-03-06 08:56] LABS: Bacteria Urine Trace /hpf; RBC Urine 0-2 /hpf (0-2); Squamous Epithelial Cell Urine Moderate /hpf (Few); WBC Urine 0-3 /hpf (0-3)
[2020-03-06 09:07] LABS: Basophils Absolute Auto 0.02 K/mm3 (0.00-0.10); Basophils Percent Auto 0.4 % (0.0-1.0); Eosinophils Absolute Auto 0.07 K/mm3 (0.02-0.50); Eosinophils Percent Auto 1.5 % (1.0-6.0); Hematocrit 25.3 % (35.0-42.0); Hemoglobin 7.6 g/dL (11.7-13.8); Immature Granulocyte Absolute 0.05 K/mm3 (0.00-0.00); Immature Granulocyte Percent A 1.1 % (0.0-0.0); Mean Corpuscular Hemoglobin 29.1 pg (27.0-31.0); Mean Corpuscular Volume 96.9 fL (78.0-102.0); Mean Platelet Volume 10.2 fl (9.2-11.8); Monocytes Absolute Auto 0.64 K/mm3 (0.10-0.90); Monocytes Percent Auto 13.4 % (2.0-11.0); Neutrophils Percent Auto 41.6 % (50.0-70.0); Platelet Count Result 167 K/mm3 (150-420); Red Blood Count 2.61 M/mm3 (4.20-5.40); Red Cell Distribution Width 15.7 % (11.6-14.4); White Blood Count 4.8 K/mm3 (4.8-10.8)
[2020-03-06 09:22] LABS: Alanine Aminotransferase 19 U/L (14-59); Albumin Level 3.6 g/dL (3.4-5.0); Alkaline Phosphatase 98 U/L (46-116); Anion Gap 10 mmol/L (8-16); Aspartate Amino Transferase 16 U/L (15-37); Bilirubin,Total 0.8 mg/dL (0.00-1.00); Blood Urea Nitrogen 17 mg/dL (7-18); CRP 0.8 mg/dL (0.0-0.9); Calcium 8.6 mg/dL (8.5-10.1); Carbon Dioxide 26 mmol/L (21-32); Chloride 108 mmol/L (98-108); Estimated CRCL calculation 53 ml/min; Estimated Glomerular Filt Rate 50; Glucose 111 mg/dL (70-99); Osmolality Calculated 300 mOsm/kg (285-295); Potassium 3.7 mmol/L (3.5-5.1); Sodium 144 mmol/L (136-145); Total Protein 7.4 g/dL (6.4-8.2)
[2020-03-06 09:27] LABS: Lactic Acid Reflex 1.1 mmol/L (0.4-2.0)
[2020-03-06] MEDS: HYDROmorphone HCL INJ (*CRX) 2 MG/ML VIAL 0.5 MG IV PUSH (09:42)
[2020-03-06 09:47] LABS: Occult Blood Negative (Negative)
--- NOTE | 2020-03-06 11:27 | PM.IMHP ---
H&P: HPI History of Present Illness Date/Time: 03/06/20 11:27 Chief complaint: back pain Narrative: Pamdini Monreal is a 70 year old female who presents today with chief complaint of lower back pain and shortness of breath. Patient states that this started last night with restless leg syndrome that she believes is the cause of her lower back pain. Patient states that she then had some shortness of breath and related that to her lower back pain which she rates a 7/10 at this time without radiation and is reproducible to palpation of the area. Patient is able to speak in complete sentences does not become more short of breath with talking and does not appear to have increased work of breathing. Patient admits her family history of rheumatoid arthritis. She does not know if any other autoimmune disorders are running in her family. Patient states that about 2 months ago she had a perirectal abscess that burst and she had to have surgery. patient states that on occasion she will have a little bit of blood on the tissue paper after wiping and denies any annika blood in the toilet. Patient states that she has been bruising more easily over the past 2 weeks or so. Review of Systems Constitutional: Constitutional: Reports no additional constitutional complaints Cardiovascular: Cardiovascular: Denies chest pain, Denies chest pain at rest, Denies chest pain with activity and Reports leg edema ( Patient states noticed swelling in the legs for the past couple days) Respiratory: Respiratory: Reports dyspnea ( patient relates this to back pain, history of COPD) Gastrointestinal: Gastrointestinal: Reports no additional gastrointestinal complaints Musculoskeletal: Comments: Patient states she has restless leg syndrome and lower back pain without radiation at a level 7 on 10. Neurologic: Denies confusion, Denies vertigo, Denies dizziness, Denies syncope and Denies frequent falls Hematologic/Lymphatic: Hematologic/Lymphatic: Reports easy bruising Comments: Patient states that over the past 2 weeks or so she has noticed she is bruising more easily. Patient states she started taking Eliquis approximately 1 year ago after having a stroke. She admits that some of her medications changed often though she does not recall any recent changes in medication. [facility] Past Medical History Medical History Anxiety with depression Aortic valve stenosis Moderate aortic valve stenosis with a peak velocity of 356, mean gradient of 22 with the aortic valve area of 1.2 Asthma Atrial flutter CAP (community acquired pneumonia) Cellulitis and abscess of buttock Congestive heart failure Diastolic congestive heart failure noted on echocardiogram from September 2019, EF of 65-70%, moderately increased left ventricular wall thickness, E/e'significantly elevated at 30 COPD (chronic obstructive pulmonary disease) Coronary artery disease CVA (cerebral vascular accident) Dietary counseling and surveillance DVT prophylaxis Elevated d-dimer Elevated troponin Excessive daytime sleepiness GERD (gastroesophageal reflux disease) Hypercholesteremia Hypertension Hypokalemia Mild pulmonary hypertension Noted on echocardiogram September 2019 with RVSP of 45 Morbid obesity with BMI of 45.0-49.9, adult Non-ST elevated myocardial infarction (non-STEMI) Obstructive sleep apnea Septic shock Severe obesity (BMI >= 40) Snoring Tightness in chest Surgical History Surgical History H/O section H/O foot surgery Bilateral History of appendectomy History of cholecystectomy History of hysterectomy History of knee replacement, total Bilateral History of mitral valve replacement with bioprosthetic valve Hx of CABG This single-vessel bypass at the time of valve replacement surgery Family History Family History Father CVD
[2020-03-06 13:19] LABS: Thyroid Stimulating Hormone Reflex 2.51 u/IU/mL (0.36-3.74)
[2020-03-06 13:25] LABS: Folic Acid 10.5 ng/mL (8.6->20); Vitamin B12 277 pg/mL (193-986)
[2020-03-06] MEDS: ALBUTEROL SULFATE NEB 1.25 MG/3 ML INH INHALATION ×2 (13:53→16:46)
[2020-03-06 13:59] LABS: Ferritin 23 ng/mL (8-252); Iron 24 ug/dL (50-170); Percent Iron Saturation 7 % (12-57)
[2020-03-06] MEDS: MORPHINE SULFATE (*CRX) 2 MG/ML INJ IV PUSH ×2 (14:01→20:24)
[2020-03-06] MEDS: BUMETANIDE 1 MG TABLET 2 MG PO (16:45)
[2020-03-06] MEDS: GABAPENTIN 100 MG CAPSULE PO (16:45)
[2020-03-06 17:46] LABS: Hematocrit 26.4 % (35.0-42.0); Hemoglobin 7.7 g/dL (11.7-13.8)
--- NOTE | 2020-03-06 20:29 | PC.NURSE ---
2020resp updraft treatment held at this time, last treatment given at 1647.
[2020-03-06 20:51] LABS: Glucose Point of Care 119 (65-105)
[2020-03-07] VITALS (15 sets, daily range): BP systolic 132–146; BP diastolic 54–65; PULSE 76–88; RESP 14–20; TEMP 36.6–37.1; O2SAT 95–99
[2020-03-07] MEDS: MORPHINE SULFATE (*CRX) 2 MG/ML INJ IV PUSH ×2 (00:05→11:14)
[2020-03-07] MEDS: ALBUTEROL SULFATE NEB 1.25 MG/3 ML INH INHALATION ×4 (00:06→12:24)
[2020-03-07 00:27] LABS: Hematocrit 26.6 % (35.0-42.0); Hemoglobin 7.8 g/dL (11.7-13.8)
[2020-03-07 05:35] LABS: Hematocrit 24.9 % (35.0-42.0); Hemoglobin 7.2 g/dL (11.7-13.8); Mean Corpuscular HGB Conc 28.9 g/dL (32.0-36.0); Mean Corpuscular Hemoglobin 28.3 pg (27.0-31.0); Mean Platelet Volume 10.4 fl (9.2-11.8); Platelet Count Result 166 K/mm3 (150-420); Red Blood Count 2.54 M/mm3 (4.20-5.40); White Blood Count 3.7 K/mm3 (4.8-10.8)
[2020-03-07 05:49] LABS: Alanine Aminotransferase 18 U/L (14-59); Albumin Level 3.4 g/dL (3.4-5.0); Alkaline Phosphatase 87 U/L (46-116); Anion Gap 6 mmol/L (8-16); Aspartate Amino Transferase 12 U/L (15-37); Bilirubin,Total 0.6 mg/dL (0.00-1.00); Blood Urea Nitrogen 18 mg/dL (7-18); Calcium 8.2 mg/dL (8.5-10.1); Carbon Dioxide 31 mmol/L (21-32); Chloride 106 mmol/L (98-108); Estimated CRCL calculation 58 ml/min; Estimated Glomerular Filt Rate 56; Glucose 112 mg/dL (70-99); Osmolality Calculated 298 mOsm/kg (285-295); Potassium 3.9 mmol/L (3.5-5.1); Sodium 143 mmol/L (136-145)
[2020-03-07 06:03] LABS: Band Neutrophils Percent 0 % (0-6); Basophils Absolute Manual 0.07 K/mm3 (0-0.1); Basophils Percent Manual 2 % (0-1); Eosinophils Absolute Manual 0.11 K/mm3 (0.02-0.5); Eosinophils Percent Manual 3 % (1-6); Hypochromasia 1+ (NORMAL); Lymphocytes Absolute Manual 1.99 K/mm3 (1.1-4.5); Lymphocytes Percent Manual 54 % (18-44); Monocytes Absolute Manual 0.44 K/mm3 (0.1-0.90); Monocytes Percent Manual 12 % (3-9); Neutrophils Absolute Manual 1.07 K/mm3 (1.7-7.2); Neutrophils Percent Manual 29 % (46-73); Platelet Estimate Adequate (Adequate); Total Cells Counted 100
[2020-03-07 06:04] LABS: Anisocytosis 1+ (NORMAL)
[2020-03-07 08:27] LABS: Glucose Point of Care 122 (65-105)
[2020-03-07] MEDS: ATORVASTATIN 40 MG TABLET 80 MG PO (09:06)
[2020-03-07] MEDS: PRAMIPEXOLE 0.25 MG TABLET 0.125 MG PO ×2 (09:06→13:10)
[2020-03-07] MEDS: GABAPENTIN 100 MG CAPSULE PO (09:06)
[2020-03-07] MEDS: DULoxetine HCL 30 MG CAPSULE.DR 60 MG PO (09:06)
[2020-03-07] MEDS: carvediloL 6.25 MG TABLET PO (09:06)
[2020-03-07] MEDS: BUMETANIDE 1 MG TABLET 2 MG PO (09:06)
[2020-03-07] MEDS: PANTOPRAZOLE 40 MG TABLET 80 MG PO (09:06)
[2020-03-07] MEDS: amLODIPine BESYLATE 5 MG TABLET 10 MG PO (09:06)
[2020-03-07] MEDS: POTASSIUM CHLORIDE 10 MEQ TABLET PO (09:07)
[2020-03-07] MEDS: SODIUM CHLORIDE 0.9% IV 250 ML 30 ML IV CONT (09:07)
[2020-03-07] MEDS: ASPIRIN 81 MG CHEWABLE TABLET BY MOUTH (09:07)
[2020-03-07 11:59] LABS: Hematocrit 27.9 % (35.0-42.0); Hemoglobin 8.3 g/dL (11.7-13.8)
[2020-03-07] MEDS: FUROSEMIDE INJ 40 MG/4 ML VIAL 20 MG IV PUSH (12:24)
--- NOTE | 2020-03-07 12:32 | PM.DS ---
DS: Admitting Diagnosis Admitting Diagnosis Admitting Diagnosis: Anemia, back pain DS: Discharge Diagnosis Discharge Diagnosis (1) Anemia: Code(s): D64.9 - Anemia, unspecified Status: Acute Assessment and Plan: 03/06/2020 Will be monitoring H&H 6:00 p.m. and 12:00 a.m. today and as well as 6:00 a.m. in the morning and will transfuse if necessary. Patient states she has been bruising more easily with the last 2 weeks. Will do workup for autoimmune issues and other types of anemia. Patient has complained of spots of blood on bathroom tissue and will be doing serial occult blood for stool. 03/07/2020 There has not been any bloody stools, no obvious bleeding, lab workup indicates Iron Deficiency Anemia, Ferrous Sulfate added to regimen and will be continued on DC home. Post transfusion of 1 Unit PRBCs H/H improved to 8.3 and 27.9. Close f/u with PCP. (2) Acute dyspnea: Code(s): R06.00 - Dyspnea, unspecified Status: Acute Assessment and Plan: 03/06/2020 Patient states she is less short of breath. Supplemental O2 for SpO2 greater equal to 92%. History COPD chest imaging in process. Will add Acapella or Flutter Valve (if we have this) and incentive spirometer. 03/07/2020 Pt does not have any complaints of SOB or increased WOB at this time. (3) Lumbago: Code(s): M54.5 - Low back pain Status: Acute Assessment and Plan: 03/06/2020 2 mg Morphine for pain rating 7-10, 1 mg morphine for pain rating 4-6, can give Tylenol or Motrin for lower rating pain, monitor for worsening pain change in condition 03/07/2020 Pt has improved, will send home with muscle relaxers and Pt can follow up with PCP. (4) Atrial flutter: Code(s): I48.92 - Unspecified atrial flutter Status: Acute Assessment and Plan: 03/06/2020 Continue with Eliquis, monitor vital signs 03/07/2020 No chest pain, palpitations reported (5) Chronic diastolic (congestive) heart failure: Code(s): I50.32 - Chronic diastolic (congestive) heart failure Status: Acute Assessment and Plan: 03/06/2020 lungs clear at this time, stopping IV fluids as patient is having shortness of breath and 1+ pitting edema lower extremities and is taking oral fluids well, renal function is good 03/07/2020 No increased swelling in the legs, no warmth to the lower extremities just a little erythema bilaterally. DS: Summary Time Spent with Patient Time attestation: Total time spent providing and/or coordinating discharge services: 30 minutes Exam Narrative: Exam Narrative: No reaction while PRBCs were being infused. Const: General: cooperative, well developed, alert and awake; No confusion Nutritional Appearance: obese Orientation/consciousness: oriented to person, oriented to place, oriented to time ( and events) and No confusion Resp: Effort & Inspection: normal respiratory effort Auscultation: clear to auscultation bilaterally Cardio: Rate: regular rate Rhythm: regular rhythm Heart sounds: Murmur heart sound present systolic blowing and II/ GI: Auscultation: Hypoactive bowel sounds present Skin: Other: Bilateral lower extremities with redness to the lower legs on both sides without warmth. 1+ pitting edema bilateral lower extremities. Neuro: General: oriented to person, oriented to place, oriented to time ( and events) and No confusion DS: Data Data Completed and Pending Labs on day of discharge: Labs from last 24 hours 03/07/20 03/07/20 03/07/20 11:32 08:26 05:28 WBC RBC Hgb 8.3 L Hct 27.9 L MCV MCH MCHC RDW Plt Count MPV Immature Gran % (Auto) Neut % (Auto) Lymph % (Auto) [place] % (Auto) Eos % (Auto) Baso % (Auto) Lymph # (Auto) [place] # (Auto) Eos # (Auto) Baso # (Auto) Abs Immat Gran (auto) Absolute Neuts (auto) Absolute Nucleated RBC Total Counted Neutrophils % (Manual) Band Neutrophils % Lymphocytes % (Ma
[2020-03-11 22:01] LABS: Transferrin 283 mg/dL (188-341)
== END 2020-03-07 13:40 | disposition home or self-care (01) ==
LOC: CHSED 08:23 → CHS2ND 13:50
PROVIDERS: Nurse Practitioner Family; Admitting Provider Emergency Medicine; Emergency Provider Emergency Medicine; PCP Nurse Practitioner Family; Visit Provider Emergency Medicine
DX: M54.5 Low back pain (principal); D64.9 Anemia, unspecified; R06.00 Dyspnea, unspecified; I35.0 Nonrheumatic aortic (valve) stenosis; I11.0 Hypertensive heart disease with heart failure; I50.32 Chronic diastolic (congestive) heart failure; I27.20 Pulmonary hypertension, unspecified; I48.92 Unspecified atrial flutter; J44.9 Chronic obstructive pulmonary disease, unspecified; J45.909 Unspecified asthma, uncomplicated; E78.00 Pure hypercholesterolemia, unspecified; K21.9 Gastro-esophageal reflux disease without esophagitis; G25.81 Restless legs syndrome; E66.9 Obesity, unspecified; F41.8 Other specified anxiety disorders; Z96.653 Presence of artificial knee joint, bilateral; Z95.4 Presence of other heart-valve replacement; Z95.1 Presence of aortocoronary bypass graft; Z86.73 Personal history of transient ischemic attack (TIA), and cerebral infarction without residual deficits
CPT/HCPCS: 36415; 36430; 71045; 74177; 80053; 81001; 82607; 82728; 82746; 83540; 83550; 83605; 84443; 84466; 85014; 85018; 85025; 86038; 86140; 86850; 86900; 86901; 86920; 94640; 94667; 96361; 96374; 96375; 96376; 99285; A9270; G0378; J1170; J1940; J2270; J7050; P9016; Q9965